=== PATIENT | female | born 1980 ===

== ENCOUNTER 2020-04-24 10:49 | Outpatient (REF) | payer OTHER, SELFPAY | END 2020-04-24 10:50 | disposition home or self-care (01) | LOC: HO.LAB 10:49 | PROVIDERS: Visit Provider Internal Medicine | DX: Z20.828 Contact with and (suspected) exposure to other viral communicable diseases (principal) | CPT/HCPCS: 87635 ==

== ENCOUNTER 2020-06-21 11:29 | Outpatient (REF) | payer OTHER, SELFPAY | END 2020-06-21 11:30 | disposition home or self-care (01) | LOC: HO.LAB 11:29 | PROVIDERS: Visit Provider Internal Medicine | DX: Z20.828 Contact with and (suspected) exposure to other viral communicable diseases (principal) | CPT/HCPCS: C9803; U0003 ==

== ENCOUNTER 2021-01-04 20:25 | Emergency (ER) | payer MEDICAID, SELFPAY ==
[2021-01-04 20:51] VITALS: BP 148/88; PULSE 81; RESP 14; TEMP 36.9; O2SAT 99; BMI 88.0
[2021-01-04 22:00] VITALS: BP 152/88; PULSE 83; RESP 16; O2SAT 99
[2021-01-04] MEDS: Lactated Ringers 1,000 ML 999 ML IV ×2 (22:12→22:55)
[2021-01-04 22:13] LABS: MANUAL DIFF FLAG NO
[2021-01-04 22:14] LABS: Basophils Absolute Auto 0.1 X10*3/uL (0.0-0.2); Basophils Percent Auto 0.5 % (0-2); Eosinophils Absolute Auto 0.1 X10*3/uL (0.0-0.4); Eosinophils Percent Auto 1.4 % (0-4); Hematocrit 36.6 % (37-47); Hemoglobin 12.4 g/dl (12.0-16.0); Imm Gran Abs Auto 0.03 X10*3/uL (0.00-0.03); Imm Gran Pct Auto 0.3 % (0.0-0.4); Lymphocytes Absolute Auto 3.3 X10*3/uL (1.2-4.9); Mean Corpuscular HGB Conc 33.9 g/dl (31.0-35.0); Mean Corpuscular Hemoglobin 27.1 pg (27.0-33.0); Mean Corpuscular Volume 80.1 fL (80-98); Mean Platelet Volume 9.3 fL (9.4-12.3); Monocytes Absolute Auto 0.6 X10*3/uL (0.1-1.2); Monocytes Percent Auto 6.3 % (2-11); Neutrophils Absolute Auto 5.4 X10*3/uL (2.0-8.3); Neutrophils Percent Auto 56.5 % (45-73); Platelet Count 278 X10*3/uL (160-400); Red Blood Count 4.57 X10*6/uL (4.20-5.50); Red Cell Distribution Width 12.9 % (11.0-16.0); White Blood Count 9.5 X10*3/uL (4.8-10.8)
[2021-01-04 22:17] LABS: Venous Blood Gas Refer to POC result
[2021-01-04 22:18] LABS: VBG Base Excess -2.1 mmol/L; VBG HCO3 21 mmol/L (22-26); VBG pCO2 32 mmHg; VBG pH 7.42 (7.32-7.43); VBG pO2 86 mmHg
[2021-01-04 22:27] LABS: Acetone, serum QL Negative (Negative)
[2021-01-04 22:42] LABS: Anion Gap 17 (12-20); Blood Urea Nitrogen 9 mg/dL (9-16); Calcium 9.1 mg/dL (8.4-10.2); Carbon Dioxide 19 mmol/L (22-29); Chloride 99 mmol/L (96-108); Creatinine Clr Calc Pharmacy 176.4; Estimated Glomerular Filt Rate > 60; Sodium 131 mmol/L (135-145)
[2021-01-04 22:43] LABS: Glucose Random 431 mg/dL (60-115)
--- NOTE | 2021-01-04 22:49 | ED_ITS ---
HPI - Recheck/Abnormal Lab/Rx General Chief Complaint: Recheck/Abnormal Lab/Rx Stated Complaint: High blood sugar Time Seen by Provider: 01/04/21 21:29 Source: patient Mode of arrival: ambulatory Limitations: no limitations History of Present Illness HPI narrative: patient is a 40-year-old female with a past medical history of DM2 on metformin who is here because she had a blood sugar at home of 435. she states she was just diagnosed 1 week ago at a clinic in [facility]. She states she had very minimal training on how to manage her diabetes and has yet to have a nutritional consult or carb counting information. She states she was told to check her blood sugar when she wakes up and before she eats dinner. She states that all of her blood sugars have generally been in the 203 100 range with kenny's blood sugar being 435. she was nervous with this numbers so she came to the emergency department. She does endorse increased thirst and increased urination and a headache. She denies any chest pain shortness of breath or fevers. Related Data Allergies Allergy/AdvReac Type Severity Reaction Status Date / Time No Known Allergies Allergy Unverified 01/04/21 21:42 Review of Systems 2 Review of Systems: Yes all other systems are reviewed and are negative [facility] Past Medical History Medical History Diabetes mellitus, type 2 Hypertension Surgical History No history of previous surgery Social History Social History Advance Directives: No Advance Directives Information Provided: Yes Physical Exam Vital Signs: Vital Signs: Last Vital Signs Temp 98.4 F 01/04/21 20:51 Pulse 83 01/04/21 22:00 Resp 16 01/04/21 22:00 BP 152/88 H 01/04/21 22:00 Pulse Ox 99 01/04/21 22:00 Body Mass Index 88.0 Const: General: cooperative, healthy appearing, comfortable and no acute distress Nutritional Appearance: average body habitus Orientation/consciousness: patient oriented x3 Eyes: General: appearance normal, both eyes and all related structures Resp: Effort & Inspection: normal respiratory effort and able to speak in complete sentences Cardio: Rate: regular rate Rhythm: regular rhythm Skin: General skin exam: no rashes or lesions noted Neuro: General: patient oriented x3 Course Course Course Narrative: patient is a 40-year-old female with a past medical history of DM2 on metformin who is here because she had a blood sugar at home of 435. Will get labs, give IV fluids and recheck point of care after 2 L of LR. Reevaluation(s) Reevaluation #1: labs remarkable for glucose 431, sodium 131, VBG is WNL an acetone is negative. Discussed with patient we will bring her blood sugar down by giving her fluids. Also advised she should double her metformin and make an appointment with her doctor for a follow-up for more Education about her diabetes, nutritional consult and possible medication adjustment. Time: 22:51 Reevaluation #2: Point of care is 314, will give 4 units of insulin IV and recheck in 1 hour, likely discharge home. Time: 00:38 MDM - Recheck/Abnormal Lab/Rx Lab Data Result diagrams: 01/04/21 22:08 01/04/21 22:08 Labs: Lab Results 01/04/21 01/04/21 01/04/21 Range/Units 22:08 22:08 22:10 WBC 9.5 (4.8-10.8) X10*3/uL RBC 4.57 (4.20-5.50) X10*6/uL Hgb 12.4 (12.0-16.0) g/dl Hct 36.6 L (37-47) % MCV 80.1 (80-98) fL MCH 27.1 (27.0-33.0) pg MCHC 33.9 (31.0-35.0) g/dl RDW 12.9 (11.0-16.0) % Plt Count 278 (160-400) X10*3/uL MPV 9.3 L (9.4-12.3) fL Immature Gran % (Auto) 0.3 (0.0-0.4) % Neut % (Auto) 56.5 (45-73) % Lymph % (Auto) 35.0 (20-40) % [place] % (Auto) 6.3 (2-11) % Eos % (Auto) 1.4 (0-4) % Baso % (Auto) 0.5 (0-2) % Lymph # (Auto) 3.3 (1.2-4.9) X10*3/uL [place] # (Auto) 0.6 (0.1-1.2) X10*3/uL Eos # (Auto) 0.1 (0.0-0.4) X10*3/uL Baso # (Auto) 0.1 (0.0-0.2) X10*3/uL Abs Immat Gran (auto) 0.03 (0.00-0.03) X10*3/uL Absolute Neuts (auto) 5.4 (2.0-8.3) X10*3/uL Absolute Nucleated RBC 0.000 (0.0-0.012) X10*3/uL Nucleated RBC % (auto) 0.0 (0.0-0.2) /100WBC VBG pH 7.42 (7.32-7.43) VBG pCO2 32 mmHg VBG pO2 86 mmHg VBG HCO3 21 L (22-26) mmol/L VBG O2 Saturation 96.0 % VBG Base Excess -2.1 mmol/L Sodium 131 L (135-145) mmol/L Potassium 4.0 (3.3-5.1) mmol/L Chloride 99 (96-108) mmol/L Carbon Dioxide 19 L (22-29) mmol/L Anion Gap 17 (12-20) BUN 9 (9-16) mg/dL Creatinine 0.88 (0.5-1.4) mg/dL Estim Creat Clear Calc 176.4 Estimated GFR > 60 POC Glucose (60-115) mg/dL Random Glucose 431 H* (60-115) mg/dL Calcium 9.1 (8.4-10.2) mg/dL Acetone, Qual Negative (Negative) 01/04/21 01/05/21 Range/Units 22:53 00:34 WBC (4.8-10.8) X10*3/uL RBC (4.20-5.50) X10*6/uL Hgb (12.0-16.0) g/dl Hct (37-47) % MCV (80-98) fL MCH (27.0-33.0) pg MCHC (31.0-35.0) g/dl RDW (11.0-16.0) % Plt Count (160-400) X10*3/uL MPV (9.4-12.3) fL Immature Gran % (Auto) (0.0-0.4) % Neut % (Auto) (45-73) % Lymph % (Auto) (20-40) % [place] % (Auto) (2-11) % Eos % (Auto) (0-4) % Baso % (Auto) (0-2) % Lymph # (Auto) (1.2-4.9) X10*3/uL [place] # (Auto) (0.1-1.2) X10*3/uL Eos # (Auto) (0.0-0.4) X10*3/uL Baso # (Auto) (0.0-0.2) X10*3/uL Abs Immat Gran (auto) (0.00-0.03) X10*3/uL Absolute Neuts (auto) (2.0-8.3) X10*3/uL Absolute Nucleated RBC (0.0-0.012) X10*3/uL Nucleated RBC % (auto) (0.0-0.2) /100WBC VBG pH (7.32-7.43) VBG pCO2 mmHg VBG pO2 mmHg VBG HCO3 (22-26) mmol/L VBG O2 Saturation % VBG Base Excess mmol/L Sodium (135-145) mmol/L Potassium (3.3-5.1) mmol/L Chloride (96-108) mmol/L Carbon Dioxide (22-29) mmol/L Anion Gap (12-20) BUN (9-16) mg/dL Creatinine (0.5-1.4) mg/dL Estim Creat Clear Calc Estimated GFR POC Glucose 360 H* 314 H (60-115) mg/dL Random Glucose (60-115) mg/dL Calcium (8.4-10.2) mg/dL Acetone, Qual (Negative) Discharge Plan Discharge Clinical Impression: Blood glucose elevated Patient Disposition: Home, Self-Care Instructions: Diabetes and Nutrition (ED) Additional Instructions: As we discussed, please increase your metformin to 1000 mg in the morning and 1000 mg in the evening, please check your blood sugar when you wake up in the morning as well as before lunch and before dinner. please keep a log of these numbers and be sure to follow-up with your primary care doctor in the next week to see if the changes we made today are working well for you or if you still need more diabetes medications. The healthiest range for your glucose to be in is from 80-180mg/dL. If your blood glucose level falls below 60, please be sure to drink at least 4-6 oz of orange juice or a similar kind of juice that has carbohydrates and no fat and then recheck her blood sugar 15 to 20 minutes later and keep doing this until your glucose is over 80. Referrals: Malissa Sweet, [Primary Care Provider] - 2 days (Follow-up from ED visit, elevated glucose, we adjusted her metformin to 1000 BID, was told to document blood glucose levels and follow-up with PCP within 1 week. patient also needs nutritional counseling as related to her new diabetes diagnosis. )
[2021-01-04 22:58] LABS: Glucose, Whole Blood 360 mg/dL (60-115)
[2021-01-05 00:38] LABS: Glucose, Whole Blood 314 mg/dL (60-115)
[2021-01-05] MEDS: Insulin Regular, Human 100 UNIT/ML 3 ML VIAL IVPUSH (01:08)
[2021-01-05 07:52] LABS: Glucose, Whole Blood 454 mg/dL (60-115)
== END 2021-01-05 01:28 | disposition home or self-care (01) ==
PROVIDERS: Physician Assistant; Emergency Provider Internal Medicine; PCP Family Medicine
DX: E11.65 Type 2 diabetes mellitus with hyperglycemia (principal); I10 Essential (primary) hypertension; Z79.84 Long term (current) use of oral hypoglycemic drugs
CPT/HCPCS: 36415; 80048; 82009; 82947; 85025; 87086; 96361; 96374; 99284

== ENCOUNTER 2021-01-06 17:52 | Emergency (ER) | payer MEDICAID, SELFPAY ==
--- NOTE | ~2021-01-06 | CT_ITS ---
EXAMINATION: CT ABDOMEN AND PELVIS WITHOUT CONTRAST CLINICAL INFORMATION: Right-sided abdominal pain. COMPARISON: CT abdomen 11/04/2015. TECHNIQUE: Multidetector volumetric imaging was performed from the superior aspect of the liver through the pubic symphysis. Sagittal and coronal reformatted images were obtained on the technologist's workstation. This CT examination was performed using dose optimization techniques as appropriate, variously including the following: *Automated exposure control. *Adjustment of mA and/or kV according to patient size (this includes techniques or standardized protocols for targeted exams where dose is matched to indication/reason for exam; i.e. extremities or head). *Use of iterative reconstruction technique. DLP: 878 mGy-cm FINDINGS: LUNG BASES: The visualized lung bases are unremarkable. LIVER, GALLBLADDER, AND BILIARY TREE: Diffuse low-attenuation suggesting hepatic steatosis. No focal hepatic lesion or biliary ductal dilatation is present. The gallbladder is unremarkable with no evidence of radiopaque gallstones, gallbladder wall thickening, or obvious pericholecystic inflammatory changes. PANCREAS: Unremarkable. SPLEEN: Unremarkable. ADRENAL GLANDS: Unremarkable. KIDNEYS AND URETERS: Exophytic hypodense lesion arising from the lower pole of the left kidney, lesion measuring approximately 4.1 x 3.3 x 4.7 cm. Intervals measurements approximately 17. Previous study demonstrated an intrarenal component, not clearly identified in today's study. This lesion is incompletely evaluated in this noncontrast study. Prior ultrasound demonstrated this to be a Bosniak type II lesion. Probable cyst in the upper pole of the left kidney, is not well visualized on the noncontrast study. No renal calculi. No hydronephrosis. BLADDER: Unremarkable. GASTROINTESTINAL TRACT: Scattered colonic diverticuli. No evidence of diverticulitis. No colonic wall thickening or pericolonic inflammatory changes. Luminal contents in the stomach. No dilated small bowel loops. Appendix is normal. No ascites. No free air. ABDOMINAL WALL: No significant hernia is appreciated. LYMPH NODES: No enlarged lymph nodes are seen. VASCULAR: Normal caliber aorta. PELVIC VISCERA: Hypodensity in the right adnexal region, probably ovarian cysts, evaluation limited by adjacent bowel loops. Uterus appears unremarkable. OSSEOUS STRUCTURES: No acute or suspicious osseous abnormality seen. CT/CT abdomen pelvis wo con IMPRESSION: 1. There is a 4.7 cm exophytic cystic lesion in the left kidney. There is a component within the substance of the kidney, not clearly visualized or evaluated in noncontrast CT. Prior ultrasound in 03/29/2018 demonstrated a Bosniak 2 lesion. Recommend further evaluation with ultrasound, which can be obtained on non-emergent basis. 2. Colonic diverticulosis without evidence of diverticulitis. 3. No acute inflammatory infectious process is otherwise identified.
--- NOTE | ~2021-01-06 | US_ITS ---
EXAMINATION: US ABDOMEN LIMITED CLINICAL INFORMATION: Right upper quadrant pain. Question acute cholecystitis. COMPARISON: Ultrasound 03/29/2018. TECHNIQUE: Real-time imaging of the right upper quadrant abdominal viscera. FINDINGS: PANCREAS: Obscured by bowel gas. LIVER: Diffuse increased parenchymal echogenicity. The liver contour is normal. No focal hepatic lesion. There is no intrahepatic biliary duct dilatation seen. GALLBLADDER: Gallbladder is contracted, patient is not fasting. Limited evaluation. No obvious shadowing gallstone is seen. No gallbladder wall thickening or pericholecystic fluid is evident. COMMON BILE DUCT: Normal in caliber measuring 0.3 cm in diameter. RIGHT KIDNEY: Normal. No hydronephrosis. No renal calculi or focal parenchymal lesions. The kidney measures 13.1 cm in maximum dimension. FREE FLUID: None. US/US abdomen limited IMPRESSION: 1. Gallbladder is contracted, patient is not fasting. No obvious gallstones, gallbladder wall thickening or pericholecystic fluid is seen. Clinically correlate. Consider short-term follow up fasting ultrasound for further evaluation, if clinically warranted. 2. There is generalized increase in hepatic echotexture, consistent with fatty infiltration or hepatocellular disease. Please correlate clinically. No focal hepatic mass or intrahepatic biliary duct dilatation is seen. 3. Pancreas obscured by bowel gas.
[2021-01-06 18:06] VITALS: BP 120/92; PULSE 105; RESP 18; TEMP 36.7; O2SAT 98; BMI 41.1
--- NOTE | 2021-01-06 19:04 | ED_ITS ---
HPI - Abdominal Pain General Chief Complaint: Abdominal Pain Stated Complaint: side pain Time Seen by Provider: 01/06/21 19:04 Source: patient Mode of arrival: ambulatory Limitations: no limitations History of Present Illness HPI narrative: patient no significant abdominal complaints in the past since yesterday 20:00 noticed pain in the right upper quadrant with nausea. Pain got worse today after having meals no fever no chills no vomiting had couple of loose bowels no abdominal distension no history of kidney stone no urinary complaints Related Data Allergies Allergy/AdvReac Type Severity Reaction Status Date / Time No Known Allergies Allergy Verified 01/06/21 18:05 Review of Systems Review of Systems Constitutional : No Weight loss, No Fever, No Chills ENT/Mouth : No sore throat, No Rhinorrhea Eyes: No Eye Pain, No Swelling Cardiovascular : No Chest Pain, no palpitations Respiratory : No Cough, No Sputum, no shortness of breath Gastrointestinal : +Nausea, No Vomiting, No Diarrhea, + abdominal Pain, no black stools Genitourinary : No Dysuria, No Urinary Frequency Musculoskeletal : No joint pain, No Myalgias, No Joint Swelling Skin : No Skin Lesions, No rash Neuro : No Weakness, No Numbness, No Dizziness, No Headache Psych : No Anxiety/Panic, No Depression Heme/Lymph: No Bruising, No Lymphadenopathy Endocrine : No Polyuria, No Polydipsia All other systems reviewed and are negative Physical Exam Vital Signs: Vital Signs: Last Vital Signs Temp 98.1 F 01/06/21 18:06 Pulse 105 H 01/06/21 18:06 Resp 18 01/06/21 19:37 BP 120/92 H 01/06/21 18:06 Pulse Ox 98 01/06/21 18:06 Body Mass Index 41.1 Appearance: Alert. Oriented X3. No acute distress. Eyes: PERRLA, No Nystagmus ENT: Pharynx normal. Oral Mucosa moist Neck: Normal inspection. Neck supple. CVS: Normal heart rate and rhythm. Pulses normal. Respiratory: No respiratory distress. Equal air entry bilateral, no wheezin g/rales/rhonchi Abdomen: Soft , tender right upper quadrant with guarding no rebound tenderness, Bowel sounds are present, no mass palpable, no CVA tenderness Skin: Skin warm and dry. Normal skin color. Normal skin turgor. Extremities: No lower extremity edema. No calf tenderness Neuro: Oriented X 3. No motor deficit. Course Course Course Narrative: CT scan ultrasound of the gallbladder is negative for gallstones patient is still complaining of pain CT scan was done which showed normal appendix cyst on the left kidney will discharge patient home on tramadol MDM - Abdominal Pain MDM Narrative Medical decision making narrative: pain with right upper quadrant pain ultrasound negative for gallstones or cholecystitis labs are stable will check the UA Lab Data Attestation: I reviewed the patient's lab results. Result diagrams: 01/06/21 19:36 01/06/21 19:36 Labs: Lab Results 01/06/21 01/06/21 01/06/21 Range/Units 19:36 19:36 20:52 WBC 10.1 (4.8-10.8) X10*3/uL RBC 4.65 (4.20-5.50) X10*6/uL Hgb 12.7 (12.0-16.0) g/dl Hct 37.4 (37-47) % MCV 80.4 (80-98) fL MCH 27.3 (27.0-33.0) pg MCHC 34.0 (31.0-35.0) g/dl RDW 12.9 (11.0-16.0) % Plt Count 312 (160-400) X10*3/uL MPV 9.4 (9.4-12.3) fL Immature Gran % (Auto) 0.2 (0.0-0.4) % Neut % (Auto) 67.2 (45-73) % Lymph % (Auto) 25.6 (20-40) % [place] % (Auto) 6.0 (2-11) % Eos % (Auto) 0.7 (0-4) % Baso % (Auto) 0.3 (0-2) % Lymph # (Auto) 2.6 (1.2-4.9) X10*3/uL [place] # (Auto) 0.6 (0.1-1.2) X10*3/uL Eos # (Auto) 0.1 (0.0-0.4) X10*3/uL Baso # (Auto) 0.0 (0.0-0.2) X10*3/uL Abs Immat Gran (auto) 0.02 (0.00-0.03) X10*3/uL Absolute Neuts (auto) 6.8 (2.0-8.3) X10*3/uL Absolute Nucleated RBC 0.000 (0.0-0.012) X10*3/uL Nucleated RBC % (auto) 0.0 (0.0-0.2) /100WBC Sodium 133 L (135-145) mmol/L Potassium 4.0 (3.3-5.1) mmol/L Chloride 100 (96-108) mmol/L Carbon Dioxide 21 L (22-29) mmol/L Anion Gap 16 (12-20) BUN 10 (9-16) mg/dL Creatinine 0.79 (0.5-1.4) mg/dL Estim Creat Clear Calc 115.2 Estimated GFR > 60 POC Glucose (60-115) mg/dL Random Glucose 279 H D (60-115) mg/dL Calcium 8.9 (8.4-10.2) mg/dL Total Bilirubin 0.2 (0.0-1.0) mg/dL Direct Bilirubin < 0.2 (0.0-0.5) mg/dL AST 20 (5-31) U/L ALT 28 (0-31) U/L Alkaline Phosphatase 84 (39-117) U/L Total Protein 6.7 (6.5-8.0) g/dL Albumin 3.7 (3.5-5.0) g/dL Lipase 59 (8-78) U/L Urine Color YELLOW Urine Appearance CLEAR Urine pH 6.0 (5.0-8.0) Ur Specific [place] 1.010 (1.005-1.025) Urine Protein NEG (NEG-TRACE) MG/DL Urine Glucose (UA) >=1000 H (NEG) MG/DL Urine Ketones 15 (NEG) MG/DL Urine Blood NEG (NEG) Urine Nitrite NEG (NEG) Ur Leukocyte Esterase NEG (NEG) Urine RBC 0 (0) /HPF Urine WBC 0-2 (0-4) /HPF Ur Squamous Epith Cells TRACE /LPF Urine Bacteria TRACE /LPF 01/06/21 Range/Units 21:50 WBC (4.8-10.8) X10*3/uL RBC (4.20-5.50) X10*6/uL Hgb (12.0-16.0) g/dl Hct (37-47) % MCV (80-98) fL MCH (27.0-33.0) pg MCHC (31.0-35.0) g/dl RDW (11.0-16.0) % Plt Count (160-400) X10*3/uL MPV (9.4-12.3) fL Immature Gran % (Auto) (0.0-0.4) % Neut % (Auto) (45-73) % Lymph % (Auto) (20-40) % [place] % (Auto) (2-11) % Eos % (Auto) (0-4) % Baso % (Auto) (0-2) % Lymph # (Auto) (1.2-4.9) X10*3/uL [place] # (Auto) (0.1-1.2) X10*3/uL Eos # (Auto) (0.0-0.4) X10*3/uL Baso # (Auto) (0.0-0.2) X10*3/uL Abs Immat Gran (auto) (0.00-0.03) X10*3/uL Absolute Neuts (auto) (2.0-8.3) X10*3/uL Absolute Nucleated RBC (0.0-0.012) X10*3/uL Nucleated RBC % (auto) (0.0-0.2) /100WBC Sodium (135-145) mmol/L Potassium (3.3-5.1) mmol/L Chloride (96-108) mmol/L Carbon Dioxide (22-29) mmol/L Anion Gap (12-20) BUN (9-16) mg/dL Creatinine (0.5-1.4) mg/dL Estim Creat Clear Calc Estimated GFR POC Glucose 227 H (60-115) mg/dL Random Glucose (60-115) mg/dL Calcium (8.4-10.2) mg/dL Total Bilirubin (0.0-1.0) mg/dL Direct Bilirubin (0.0-0.5) mg/dL AST (5-31) U/L ALT (0-31) U/L Alkaline Phosphatase (39-117) U/L Total Protein (6.5-8.0) g/dL Albumin (3.5-5.0) g/dL Lipase (8-78) U/L Urine Color Urine Appearance Urine pH (5.0-8.0) Ur Specific [place] (1.005-1.025) Urine Protein (NEG-TRACE) MG/DL Urine Glucose (UA) (NEG) MG/DL Urine Ketones (NEG) MG/DL Urine Blood (NEG) Urine Nitrite (NEG) Ur Leukocyte Esterase (NEG) Urine RBC (0) /HPF Urine WBC (0-4) /HPF Ur Squamous Epith Cells /LPF Urine Bacteria /LPF PMFSH Past Medical History Medical History Diabetes mellitus, type 2 Hypertension Surgical History No history of previous surgery Social History Social History Advance Directives: No Advance Directives Information Provided: No Patient : No
[2021-01-06 19:37] VITALS: RESP 18
[2021-01-06] MEDS: Morphine Sulfate 4 MG/ML CARTRIDGE IVPUSH (19:37)
[2021-01-06] MEDS: ondansetron HCL 4 MG/2 ML VIAL IVPUSH (19:37)
[2021-01-06] MEDS: 0.9 % Sodium Chloride 1,000 ML 999 ML IVCONT (19:38)
[2021-01-06 19:47] LABS: MANUAL DIFF FLAG NO
[2021-01-06 20:00] LABS: Basophils Percent Auto 0.3 % (0-2); Eosinophils Absolute Auto 0.1 X10*3/uL (0.0-0.4); Eosinophils Percent Auto 0.7 % (0-4); Hematocrit 37.4 % (37-47); Hemoglobin 12.7 g/dl (12.0-16.0); Imm Gran Abs Auto 0.02 X10*3/uL (0.00-0.03); Imm Gran Pct Auto 0.2 % (0.0-0.4); Lymphocytes Absolute Auto 2.6 X10*3/uL (1.2-4.9); Lymphocytes Percent Auto 25.6 % (20-40); Mean Corpuscular Hemoglobin 27.3 pg (27.0-33.0); Mean Corpuscular Volume 80.4 fL (80-98); Mean Platelet Volume 9.4 fL (9.4-12.3); Monocytes Absolute Auto 0.6 X10*3/uL (0.1-1.2); Neutrophils Absolute Auto 6.8 X10*3/uL (2.0-8.3); Neutrophils Percent Auto 67.2 % (45-73); Platelet Count 312 X10*3/uL (160-400); Red Blood Count 4.65 X10*6/uL (4.20-5.50); Red Cell Distribution Width 12.9 % (11.0-16.0); White Blood Count 10.1 X10*3/uL (4.8-10.8)
[2021-01-06 20:11] LABS: Alanine Aminotransferase 28 U/L (0-31); Albumin Level 3.7 g/dL (3.5-5.0); Alkaline Phosphatase 84 U/L (39-117); Anion Gap 16 (12-20); Aspartate Amino Transferase 20 U/L (5-31); Bilirubin Direct < 0.2 mg/dL (0.0-0.5); Bilirubin Total 0.2 mg/dL (0.0-1.0); Blood Urea Nitrogen 10 mg/dL (9-16); Calcium 8.9 mg/dL (8.4-10.2); Carbon Dioxide 21 mmol/L (22-29); Chloride 100 mmol/L (96-108); Creatinine Clr Calc Pharmacy 115.2; Estimated Glomerular Filt Rate > 60; Glucose Random 279 mg/dL (60-115); Lipase 59 U/L (8-78); Sodium 133 mmol/L (135-145); Total Protein 6.7 g/dL (6.5-8.0)
[2021-01-06 21:06] LABS: Glucose Urine UA >=1000 MG/DL (NEG); Leukocyte Esterase Urine NEG (NEG); Nitrite Urine NEG (NEG); Urine Blood NEG (NEG); Urine Ketones 15 MG/DL (NEG); Urine Protein NEG (NEG-TRACE)
[2021-01-06 21:24] LABS: Appearance Urine CLEAR; Color Urine YELLOW
[2021-01-06 21:54] LABS: Glucose, Whole Blood 227 mg/dL (60-115)
[2021-01-06 21:56] LABS: Bacteria Urine TRACE /LPF; RBC Urine 0 /HPF (0); Squamous Epithelial Cell Urine TRACE /LPF; WBC Urine 0-2 /HPF (0-4)
[2021-01-06 22:00] VITALS: BP 139/75; PULSE 72; RESP 18; O2SAT 100
== END 2021-01-06 23:45 | disposition home or self-care (01) ==
PROVIDERS: Emergency Provider Internal Medicine; PCP Family Medicine
DX: R10.11 Right upper quadrant pain (principal); R11.0 Nausea; Q61.01 Congenital single renal cyst; E11.9 Type 2 diabetes mellitus without complications; I10 Essential (primary) hypertension
CPT/HCPCS: 36415; 74176; 76705; 80048; 80076; 81001; 81003; 82947; 83690; 85025; 96361; 96374; 96375; 99284; J2270; J2405

== ENCOUNTER 2021-01-26 09:31 | Outpatient (REF) | payer MEDICAID, SELFPAY ==
--- NOTE | ~2021-01-26 | XR_ITS ---
EXAMINATION: LEFT HAND/WRIST CLINICAL INFORMATION: Effusion. Pain COMPARISON: None TECHNIQUE: 3 views. FINDINGS: The MCP and interphalangeal joint spaces are maintained normal. There is no bony erosive changes, spurring a loss of joint space. No acute fracture or bony abnormality seen. The soft tissues are normal. XR/XR hand wrist LT IMPRESSION: Unremarkable left hand exam.
== END 2021-01-26 09:32 | disposition home or self-care (01) ==
LOC: HO.XRAY 09:31
PROVIDERS: Visit Provider Family Medicine
DX: M25.432 Effusion, left wrist (principal)
CPT/HCPCS: 73110; 73130

== ENCOUNTER → 2021-03-09 10:09 | Outpatient (BNVA) | payer MEDICAID, SELFPAY | PROVIDERS: PCP Family Medicine | DX: N39.3 Stress incontinence (female) (male) (principal) | CPT/HCPCS: 99202 ==

== ENCOUNTER 2021-04-06 14:56 | Outpatient (REF) | payer MEDICAID, SELFPAY ==
--- NOTE | ~2021-04-06 | CT_ITS ---
EXAMINATION: CT HEAD WITHOUT CONTRAST CLINICAL INFORMATION: Headache COMPARISON: None TECHNIQUE: Contiguous axial imaging was performed from the skull base to vertex without intravenous administration of contrast. This CT examination was performed using dose optimization techniques as appropriate, variously including the following: *Automated exposure control *Adjustment of mA and/or kV according to patient size (this includes techniques or standardized protocols for targeted exams where dose is matched to indication/reason for exam; i.e. extremities or head) *Use of iterative reconstruction technique DLP: 812.8 mGy-cm FINDINGS: There is no evidence of acute intracranial hemorrhage or territorial infarction. No abnormal mass effect or midline shift is seen. Cortes to white matter differentiation is well preserved. No extra-axial fluid collections are identified. The ventricles are normal in size. There is no abnormal attenuation within the brain parenchyma. The osseous structures and soft tissues are normal. The mastoid air cells and visualized portions of the paranasal sinuses are well aerated. CT/CT head/brain wo con IMPRESSION: No acute intracranial pathology.
== END 2021-04-06 14:57 | disposition home or self-care (01) ==
LOC: HO.CT 14:56
PROVIDERS: PCP Family Medicine; Visit Provider Emergency Medicine
DX: R51.9 Headache, unspecified (principal)
CPT/HCPCS: 70450

== ENCOUNTER → 2021-06-08 10:49 | Outpatient (BNVA) | payer MEDICAID, SELFPAY | PROVIDERS: PCP Family Medicine ==

== ENCOUNTER 2022-08-18 09:03 | Emergency (ER) | payer MEDICAID, SELFPAY ==
[2022-08-18 09:16] VITALS: BP 160/94; PULSE 74; RESP 16; TEMP 36.6; O2SAT 98; BMI 46.3
[2022-08-18 09:26] LABS: Glucose, Whole Blood 279 mg/dL (60-115)
[2022-08-18 09:45] VITALS: BP 148/82; PULSE 77; RESP 20; O2SAT 97
--- NOTE | 2022-08-18 09:57 | ECG_ITS ---
Test Reason : HBP Blood Pressure : / mmHG Vent. Rate : 076 BPM Atrial Rate : 076 BPM P-R Int : 142 ms QRS Dur : 108 ms QT Int : 394 ms P-R-T Axes : 017 -03 -08 degrees QTc Int : 443 ms Normal sinus rhythm Minimal voltage criteria for LVH, may be normal variant ( [place] product ) Nonspecific T wave abnormality Abnormal ECG No previous ECGs available Referred By: Makeda Cabrera Electronically Signed By:Nikita Hernandez
[2022-08-18 10:10] LABS: Basophils Percent Auto 0.5 % (0-2); Eosinophils Absolute Auto 0.1 X10*3/uL (0.0-0.4); Eosinophils Percent Auto 0.9 % (0-4); Hemoglobin 12.7 g/dl (12.0-16.0); Imm Gran Abs Auto 0.02 X10*3/uL (0.00-0.03); Imm Gran Pct Auto 0.2 % (0.0-0.4); Lymphocytes Percent Auto 34.8 % (20-40); MANUAL DIFF FLAG NO; Mean Corpuscular HGB Conc 34.3 g/dl (31.0-35.0); Mean Corpuscular Hemoglobin 28.2 pg (27.0-33.0); Mean Corpuscular Volume 82.2 fL (80.0-98.0); Mean Platelet Volume 8.8 fL (9.4-12.3); Monocytes Absolute Auto 0.5 X10*3/uL (0.1-1.2); Monocytes Percent Auto 5.3 % (2-11); Neutrophils Absolute Auto 5.1 x10*3/uL (2.0-8.3); Neutrophils Percent Auto 58.3 % (45-73); Platelet Count 324 X10*3/uL (160-400); Red Cell Distribution Width 12.8 % (11.0-16.0); White Blood Count 8.7 X10*3/uL (4.8-10.8)
--- NOTE | 2022-08-18 10:16 | ED_ITS ---
HPI - General Adult General Chief complaint: General Medical Stated complaint: HBP/HBS Time Seen by Provider: 08/18/22 09:57 Source: patient Mode of arrival: ambulatory Limitations: no limitations History of Present Illness HPI narrative: 42-year-old female with history of hyq-jnccksz-shuwwhhgq diabetes, hypertens ion, migraines presents with complaints of headache which began at 04:00 and feeling like her blood pressure is elevated. Patient reports she normally takes her morning medications when she gets home from work but did not take these as she came here instead. She does take hydrochlorothiazide and lisinopril for her blood pressure. She does have a history of migraine and states this headache does feel similar to previous migraines. She has no associated photophobia, nausea, vomiting, vision changes, dizziness. She also reports that her blood sugar was elevated today but did not take her diabetes medications. Related Data Home Medications Medication Instructions Recorded Confirmed cholecalciferol (vitamin D3) 25 25 mcg PO DAILY 06/08/21 mcg (1,000 unit) capsule hydrochlorothiazide 25 mg tablet 25 mg PO DAILY 06/08/21 lisinopril 20 mg tablet 20 mg PO DAILY 06/08/21 metformin 500 mg tablet 500 mg PO BID 06/08/21 Previous Rx's Medication Instructions Recorded tramadol 50 mg tablet 50 mg PO Q6H PRN pain #20 tabs 01/06/21 oxybutynin chloride 10 mg 10 mg PO DAILY OAB 90 days #90 tabs 03/12/22 tablet,extended release 24 hr ceaxwiavyk-ilzcrlsanbqjb-rykkoapm 1 cap PO Q8H PRN pain #10 caps 08/18/22 50 mg-300 mg-40 mg capsule (Fioricet) Allergies Allergy/AdvReac Type Severity Reaction Status Date / Time No Known Allergies Allergy Verified 06/08/21 11:53 Review of Systems Review of Systems: Yes all other systems are reviewed and are negative Constitutional: Constitutional: Reports no additional constitutional complaints, Denies body ache(s), Denies chills, Denies fever(s), Reports headac he(s) and Denies weakness Eyes: Eyes: Reports no additional eye complaints and Denies change in vision ENT: Reports system reviewed and no additional complaints, except as documented, Denies dizziness, Reports headache(s), Denies nasal congestion, Denies nasal discharge and Denies neck pain Cardiovascular: Cardiovascular: Reports no additional cardiovascular c omplaints, Denies chest pain, Denies leg edema and Denies dyspnea Respiratory: Respiratory: Reports no additional respiratory complaints, Denies cough and Denies dyspnea Gastrointestinal: Gastrointestinal: Reports no additional gastrointestinal complaints, Denies abdominal pain, Denies diarrhea, Denies nausea and Denies vomiting Genitourinary: Genitourinary: Reports no additional female genitourinary complaints and Denies urinary incontinence Musculoskeletal: Musculoskeletal: Reports no additional musculoskeletal complaints, Denies back pain, Denies arthralgias, Denies joint swelling, Denies neck pain, Denies numbness and Denies tingling Integumentary/Breasts: Skin/Breast: Reports system reviewed and no additional complaints, except as docu and Denies rash Neurologic: Reports system reviewed and no additional complaints, except as documented, Denies dizziness, Reports headache(s), Denies numbness, Denies tingling and Denies weakness PMFSH Past Medical History Attestation statement: The following information was validated with the patient. Source: old records reviewed and nursing notes reviewed Medical History Diabetes mellitus, type 2 Hypertension Stress bladder incontinence, female Surgical History No history of previous surgery Social History Social History Alcohol intake: never Patient Tobacco Use Status: Never used Tobacco Smoked in Last 30 Days: No Use of substances other than those prescribed or required for medical reasons: No Advance Directives: No Advance Directives Information Provided: Yes Physical Exam ED Vital Signs: Vital Signs - 24 hr 08/18/22 09:16 08/18/22 09:45 08/18/22 11:39 Temperature 97.8 F Pulse Rate 74 77 82 Respiratory Rate 16 20 20 Blood Pressure 160/94 H 148/82 H 132/81 Pulse Oximetry 98 97 96 Oxygen Delivery Method Room Air Room Air Room Air BMI result Body Mass Index 46.3 Const General: cooperative, healthy appearing, comfortable and no acute distress Orientation/consciousness: patient oriented x3 Limitations: no limitations HENMT Head: Yes normal to inspection Ears: hearing grossly normal bilaterally and TM's normal bilaterally General nose exam: Normal external nose present Face and sinus: Yes normal facial exam Mouth: Normal oral and palatal mucosa present Throat: Yes posterior oropharynx normal, Yes tonsils normal and Yes uvula midline Eyes General: appearance normal, both eyes and all related structures Pupils: Equal, round and reactive pupils present Neck Neck: Yes normal visual inspection, Yes full ROM, Yes no lymphadenopathy and Yes no meningeal signs Chest Chest palpation & inspection: normal inspection of the chest Resp Effort & Inspection: normal respiratory effort Auscultation: clear to auscultation bilaterally Cardio Rate: regular rate Rhythm: regular rhythm Peripheral pulses: Peripheral pulses 2+ throughout GI Inspection: Yes normal to inspection Palpation (GI): Soft to palpation and nontender General: Yes no CVA tenderness Back/Spine/Pelvis Back: no CVA tenderness Thoracic/Lumbar Spine: thoracic and lumbar spine normal to inspection Skin General skin exam: no rashes or lesions noted Neuro General: patient oriented x3, moves all extremities and no meningeal signs Cranial nerves: Yes CN's II-XII intact bilaterally, Yes Equal, round and reactive pupils present, Yes Bilaterally intact EOM present, Yes Nystagmus not present, Yes Normal facial strength present and Yes Midline tongue present Cognition (Neuro): normal cognition Gait exam (Neuro): Normal gait present Motor exam (neuro): 5/5 motor strength present throughout Sensory Exam: Normal double simultaneous stimulation for sensation Extrem General: Yes normal to inspection, Yes no pedal edema and Yes no calf tenderness Course Course Course Narrative: Labs show mild hyperglycemia with no evidence of DKA. Blood pressure recheck 132/91. Patient reports feeling overall much better. Headache is almost resolved. Reviewed of workup with the patient. Recommend that she take her medications as prescribed and not miss any doses. She tells me that she has of medication at home that she does not know the name of for migraines but she does not take it because it makes her feel dizzy. She does feel better with the tablet if your sed here and so I will give her this as a prescription. Recommend follow-up outpatient with her primary care. Reviewed worrisome signs and symptoms of when to return to the emergency room. Comfortable plan for discharge home Medications Administered Discontinued Medications Generic Name Dose Route Start Last Admin Trade Name Freq PRN Reason Stop Dose Admin Acetaminophen/Butalbital/Caffeine 1 tab 08/18/22 10:15 08/18/22 10:33 Butalb/Acetamin/Caff 50/325/40 Tablet PO 08/18/22 10:16 1 tab ONCE ONE Administration Hydrochlorothiazide 25 mg 08/18/22 10:15 08/18/22 10:33 Hydrochlorothiazide 25 Mg Tablet PO 08/18/22 10:16 25 mg ONCE ONE Administration Protocol Lisinopril 20 mg 08/18/22 10:15 08/18/22 10:33 Lisinopril 20 Mg Tablet PO 08/18/22 10:16 20 mg ONCE ONE Administration Protocol Metformin HCl 500 mg 08/18/22 10:15 08/18/22 10:33 Metformin Hcl 500 Mg Tablet PO 08/18/22 10:16 500 mg ONCE ONE Administration Medical Decision Making Medical Decision Making MDM Narrative: 42-year-old female here with concern for headache which began at 04:00 with concerned that her blood sugar and blood pressure are elevated. Patient has history of pgj-izejkgi-eouvwvjwz diabetes, migraines, hypertension it is not t aneesh any of her morning medications. She does state this headache feels similar to her previous migraines. Patient denies any injury or trauma. Will obtain labs, EKG. Patient will be given her morning medications as well as oral Fioricet her migraine blood pressure 140 systolic on arrival. Blood sugar 279 Differential Diagnosis Differential Diagnoses: The differential diagnosis associated with the presentation includes migraines, hypertension, hyperglycemia with noncompliance Lab Data [facility] Lab Attestation statement: I reviewed the patient's lab results. 08/18/22 10:05 08/18/22 10:05 Labs: Lab Results 08/18/22 08/18/22 08/18/22 Range/Units 09:22 10:05 10:05 WBC 8.7 (4.8-10.8) X10*3/uL RBC 4.50 (4.20-5.50) X10*6/uL Hgb 12.7 (12.0-16.0) g/dl Hct 37.0 (37.0-47.0) % MCV 82.2 (80.0-98.0) fL MCH 28.2 (27.0-33.0) pg MCHC 34.3 (31.0-35.0) g/dl RDW 12.8 (11.0-16.0) % Plt Count 324 (160-400) X10*3/uL MPV 8.8 L (9.4-12.3) fL Immature Gran % (Auto) 0.2 (0.0-0.4) % Neut % (Auto) 58.3 (45-73) % Lymph % (Auto) 34.8 (20-40) % [place] % (Auto) 5.3 (2-11) % Eos % (Auto) 0.9 (0-4) % Baso % (Auto) 0.5 (0-2) % Lymph # (Auto) 3.0 (1.2-4.9) X10*3/uL [place] # (Auto) 0.5 (0.1-1.2) X10*3/uL Eos # (Auto) 0.1 (0.0-0.4) X10*3/uL Baso # (Auto) 0.0 (0.0-0.2) X10*3/uL Abs Immat Gran (auto) 0.02 (0.00-0.03) X10*3/uL Absolute Neuts (auto) 5.1 (2.0-8.3) x10*3/uL Absolute Nucleated RBC 0.000 (0.0-0.012) X10*3/uL Nucleated RBC % (auto) 0.0 (0.0-0.2) /100WBC Sodium 135 (135-145) mmol/L Potassium 3.9 (3.3-5.1) mmol/L Chloride 101 (96-108) mmol/L Carbon Dioxide 22 (22-29) mmol/L Anion Gap 16 (12-20) BUN 7 L (9-16) mg/dL Creatinine 0.75 (0.5-1.4) mg/dL Estim Creat Clear Calc 127.4 Estimated GFR > 60 POC Glucose 279 H (60-115) mg/dL Random Glucose 311 H (60-115) mg/dL Calcium 8.9 (8.4-10.2) mg/dL Troponin I High Sens (<3.5-17.0) ng/L Urine Color Urine Appearance Urine pH (5.0-9.0) Ur Specific [place] (1.005-1.025) Urine Protein (Neg-Trace) mg/dL Urine Glucose (UA) (Negative) mg/dL Urine Ketones (Negative) mg/dL Urine Blood (Negative) Urine Nitrite (Negative) Ur Leukocyte Esterase (Negative) Urine RBC (0-2) /HPF Urine WBC (0-5) /HPF Ur Squamous Epith Cells (0-2) /HPF Urine Bacteria (None Seen) Hyaline Casts (0-2) /LPF 08/18/22 08/18/22 Range/Units 10:05 11:38 WBC (4.8-10.8) X10*3/uL RBC (4.20-5.50) X10*6/uL Hgb (12.0-16.0) g/dl Hct (37.0-47.0) % MCV (80.0-98.0) fL MCH (27.0-33.0) pg MCHC (31.0-35.0) g/dl RDW (11.0-16.0) % Plt Count (160-400) X10*3/uL MPV (9.4-12.3) fL Immature Gran % (Auto) (0.0-0.4) % Neut % (Auto) (45-73) % Lymph % (Auto) (20-40) % [place] % (Auto) (2-11) % Eos % (Auto) (0-4) % Baso % (Auto) (0-2) % Lymph # (Auto) (1.2-4.9) X10*3/uL [place] # (Auto) (0.1-1.2) X10*3/uL Eos # (Auto) (0.0-0.4) X10*3/uL Baso # (Auto) (0.0-0.2) X10*3/uL Abs Immat Gran (auto) (0.00-0.03) X10*3/uL Absolute Neuts (auto) (2.0-8.3) x10*3/uL Absolute Nucleated RBC (0.0-0.012) X10*3/uL Nucleated RBC % (auto) (0.0-0.2) /100WBC Sodium (135-145) mmol/L Potassium (3.3-5.1) mmol/L Chloride (96-108) mmol/L Carbon Dioxide (22-29) mmol/L Anion Gap (12-20) BUN (9-16) mg/dL Creatinine (0.5-1.4) mg/dL Estim Creat Clear Calc Estimated GFR POC Glucose (60-115) mg/dL Random Glucose (60-115) mg/dL Calcium (8.4-10.2) mg/dL Troponin I High Sens < 3.5 (<3.5-17.0) ng/L Urine Color Yellow Urine Appearance Clear Urine pH 5.5 (5.0-9.0) Ur Specific [place] 1.010 (1.005-1.025) Urine Protein Negative (Neg-Trace) mg/dL Urine Glucose (UA) >=1000 H (Negative) mg/dL Urine Ketones Negative (Negative) mg/dL Urine Blood Small (1+) H (Negative) Urine Nitrite Negative (Negative) Ur Leukocyte Esterase Negative (Negative) Urine RBC 0-2 (0-2) /HPF Urine WBC 0-5 (0-5) /HPF Ur Squamous Epith Cells 0-2 (0-2) /HPF Urine Bacteria None Seen (None Seen) Hyaline Casts 0-2 (0-2) /LPF Independent Interpretation I performed an independent interpretation of an: EKG Interpretation: I independently reviewed the EKG which shows normal sinus rhythm with a rate of 76, normal ND, normal QRS, nonspecific T-wave changes in le Discharge Plan Discharge Clinical Impression: Hyperglycemia, Hypertension, Migraines Patient Disposition: Home, Self-Care Additional Instructions: blood work shows mildly elevated blood sugar. Make sure that you take all her medications as prescribed. Your blood pressure is improved on discharge. I am prescribing a different medication for your migraines Prescriptions: New ogajiwlehv-hpqurrngzbxwv-fbja [Fioricet] 50-300-40 mg capsule 1 cap PO Q8H PRN (Reason: pain) Qty: 10 0RF No Action oxybutynin chloride 10 mg tablet extended release 24hr 10 mg PO DAILY 90 Days Qty: 90 0RF tramadol 50 mg tablet 50 mg PO Q6H PRN (Reason: pain) Qty: 20 0RF metformin 500 mg tablet 500 mg PO BID cholecalciferol (vitamin D3) 25 mcg (1,000 unit) capsule 25 mcg PO DAILY lisinopril 20 mg tablet 20 mg PO DAILY hydrochlorothiazide 25 mg tablet 25 mg PO DAILY Referrals: Malissa Sweet DO [Primary Care Provider] - 10 days Stand Alone Forms: Work/School Release
[2022-08-18 10:28] LABS: Anion Gap 16 (12-20); Blood Urea Nitrogen 7 mg/dL (9-16); Calcium 8.9 mg/dL (8.4-10.2); Carbon Dioxide 22 mmol/L (22-29); Chloride 101 mmol/L (96-108); Creatinine Clr Calc Pharmacy 127.4; Estimated Glomerular Filt Rate > 60; Glucose Random 311 mg/dL (60-115); Potassium 3.9 mmol/L (3.3-5.1); Sodium 135 mmol/L (135-145)
[2022-08-18] MEDS: Butalb/Acetamin/Caff 50/325/40 TABLET 1 TAB PO (10:33)
[2022-08-18] MEDS: metFORMIN HCl 500 MG TABLET PO (10:33)
[2022-08-18] MEDS: lisinopriL 20 MG TABLET PO (10:33)
[2022-08-18] MEDS: hydroCHLOROthiazide 25 MG TABLET PO (10:33)
[2022-08-18 10:36] LABS: Troponin-I High Sensitivity < 3.5 ng/L (<3.5-17.0)
[2022-08-18 11:39] VITALS: BP 132/81; PULSE 82; RESP 20; O2SAT 96
[2022-08-18 11:48] LABS: Appearance Urine Clear; Color Urine Yellow; Glucose Urine UA >=1000 mg/dL (Negative); Leukocyte Esterase Urine Negative (Negative); Nitrite Urine Negative (Negative); PH 5.5 (5.0-9.0); UMIC TRIGGER UACC YES; Urine Blood Small (1+) (Negative); Urine Ketones Negative (Negative); Urine Protein Negative (Neg-Trace)
[2022-08-18 12:01] LABS: Bacteria Urine None Seen (None Seen); Hyaline Casts Urine 0-2 /LPF (0-2); RBC Urine 0-2 /HPF (0-2); Squamous Epithelial Cell Urine 0-2 /HPF (0-2); WBC Urine 0-5 /HPF (0-5)
== END 2022-08-18 12:16 | disposition home or self-care (01) ==
PROVIDERS: Nurse Practitioner Family; Emergency Provider Emergency Medicine Emergency Medical Services; PCP Family Medicine
DX: E11.65 Type 2 diabetes mellitus with hyperglycemia (principal); G43.909 Migraine, unspecified, not intractable, without status migrainosus; I10 Essential (primary) hypertension; Z79.899 Other long term (current) drug therapy; Z79.84 Long term (current) use of oral hypoglycemic drugs; Z91.14 Patient's other noncompliance with medication regimen
CPT/HCPCS: 36415; 80048; 81001; 82947; 84484; 85025; 93005; 99283; 99285

== ENCOUNTER 2022-10-31 13:51 | Outpatient (REF) | payer MEDICAID, SELFPAY ==
--- NOTE | ~2022-10-31 | US_ITS ---
EXAMINATION: US RETROPERITONEAL LIMITED (RENAL ONLY) CLINICAL INFORMATION: Cystic lesion seen on CT. COMPARISON: CT abdomen pelvis 01/06/2021 and ultrasound abdomen limited same date. TECHNIQUE: Real-time imaging of the kidneys. FINDINGS: RIGHT KIDNEY: 13.6 x 6.3 x 6.5 cm (SAG x AP x TRV). The kidney is normal in size, contour, and echogenicity. Renal cortical thickness is normal. No calculi or focal parenchymal lesions. No hydronephrosis. LEFT KIDNEY: 12.6 x 6.5 x 5.1 cm (SAG x AP x TRV). The kidney is normal in size, contour, and echogenicity. Renal cortical thickness is normal. No renal calculi or hydronephrosis. There is a 1.7 cm simple cyst in the upper pole. There is a 3.3 x 3.3 x 3.3 cm endophytic cyst with multiple thin septations in the mid kidney. Previously this measured 2.6 x 2.2 x 2.5 cm. There is a 4.4 x 3.9 x 3.1 cm thinly septated exophytic cyst in the mid to lower kidney. Previously this measured 3.9 x 2.7 x 3.8 cm. US/US renal BI IMPRESSION: Increased 3.3 cm endophytic cystic lesion in the lower left kidney with multiple thin internal septations. Previously this measured 2.6 cm. Recommend urology consultation.
== END 2022-10-31 13:52 | disposition home or self-care (01) ==
LOC: HO.US 13:51
PROVIDERS: PCP Family Medicine; Visit Provider Family Medicine
DX: N28.9 Disorder of kidney and ureter, unspecified (principal)
CPT/HCPCS: 76775

== ENCOUNTER 2022-11-28 10:28 | Outpatient (REF) | payer MEDICAID, SELFPAY ==
--- NOTE | ~2022-11-28 | MM_ITS ---
EXAMINATION: MM SCREENING DIGITAL BREAST TOMOSYNTHESIS, BILATERAL CLINICAL INFORMATION: Screening. Asymptomatic. The lifetime risk of breast cancer based on the Tyrer-Cuzick Model is 7%. COMPARISON: Mammography: 01/06/2019, 08/04/2018 (baseline); right breast ultrasound 01/06/2019; bilateral breast ultrasound 08/04/2018. TECHNIQUE: Digital breast tomosynthesis is performed in both the craniocaudal and mediolateral oblique views along with computer-aided detection (CAD). Synthesized 2D images are generated from the tomosynthesis. FINDINGS: There are scattered areas of fibroglandular density (ACR BI-RADS breast composition Category b). There are no significant masses, abnormal calcifications, or other abnormalities. No architectural abnormality or developing density or significant change from prior studies. Axillary nodes stable. Skin contours are smooth. MM/MM tomosynthesis screening BI IMPRESSION: No mammographic evidence of malignancy. ASSESSMENT: BI-RADS 2: Benign RECOMMENDATION: Routine annual mammography screening. This patient's information was entered into a reminder system with a target due date for their next mammogram.
== END 2022-11-28 10:29 | disposition home or self-care (01) ==
LOC: HO.MAMMO 10:28
PROVIDERS: PCP Family Medicine; Visit Provider Family Medicine
DX: Z12.31 Encounter for screening mammogram for malignant neoplasm of breast (principal)
CPT/HCPCS: 77063; 77067

== ENCOUNTER 2023-02-20 10:29 | Outpatient (REF) | payer MEDICAID, SELFPAY ==
[2023-02-20 11:11] LABS: MANUAL DIFF FLAG NO
[2023-02-20 11:33] LABS: Basophils Absolute Auto 0.1 X10*3/uL (0.0-0.2); Basophils Percent Auto 0.5 % (0-2); Eosinophils Absolute Auto 0.1 X10*3/uL (0.0-0.4); Hematocrit 36.7 % (37.0-47.0); Hemoglobin 12.2 g/dl (12.0-16.0); Imm Gran Abs Auto 0.03 X10*3/uL (0.00-0.03); Imm Gran Pct Auto 0.3 % (0.0-0.4); Lymphocytes Absolute Auto 2.7 X10*3/uL (1.2-4.9); Lymphocytes Percent Auto 28.6 % (20-40); Mean Corpuscular HGB Conc 33.2 g/dl (31.0-35.0); Mean Corpuscular Volume 84.4 fL (80.0-98.0); Mean Platelet Volume 8.9 fL (9.4-12.3); Monocytes Absolute Auto 0.6 X10*3/uL (0.1-1.2); Monocytes Percent Auto 6.2 % (2-11); Neutrophils Absolute Auto 5.9 x10*3/uL (2.0-8.3); Neutrophils Percent Auto 63.4 % (45-73); Platelet Count 389 X10*3/uL (160-400); Red Blood Count 4.35 X10*6/uL (4.20-5.50); Red Cell Distribution Width 12.9 % (11.0-16.0); White Blood Count 9.4 X10*3/uL (4.8-10.8)
[2023-02-20 12:33] LABS: HIV AB/AG Nonreactive (Nonreactive); HIV Num 1 0.06 S/CO (0.00-0.99)
[2023-02-20 12:36] LABS: Alanine Aminotransferase 42 U/L (0-31); Albumin Level 3.7 g/dL (3.5-5.0); Alkaline Phosphatase 72 U/L (39-117); Anion Gap 11 (12-20); Aspartate Amino Transferase 38 U/L (5-31); Bilirubin Direct 0.1 mg/dL (0.0-0.5); Bilirubin Total 0.3 mg/dL (0.0-1.0); Blood Urea Nitrogen 7 mg/dL (9-16); Calcium 8.9 mg/dL (8.4-10.2); Carbon Dioxide 25 mmol/L (22-29); Chloride 107 mmol/L (96-108); Cholesterol 162 mg/dL; Estimated Glomerular Filt Rate > 60; Glucose Random 136 mg/dL (60-115); HDL Cholesterol 45 mg/dL; LDL Cholesterol Calculated 96 mg/dl; Potassium 3.9 mmol/L (3.3-5.1); Sodium 139 mmol/L (135-145); Total Protein 7.2 g/dL (6.5-8.0); Triglycerides 105 mg/dL; ~HepC Num1 0.07 S/CO (0.00-0.79); ~Hepatitis C Antibody Nonreactive (Nonreactive)
[2023-02-20 12:43] LABS: Vitamin B12 714 pg/mL (200-900)
[2023-02-20 12:44] LABS: Free T4 (Free Thyroxine) 0.97 ng/dL (0.71-1.85); Thyroid Stimulating Hormone 0.99 uIU/mL (0.32-4.0); Vitamin D 25-OH Total 33.4 ng/mL (>30)
[2023-02-20 14:31] LABS: Creatinine Urine 205.24 mg/dL; Microalbum/Creatinine Ratio Ur 5.8 ug/mg cr
[2023-02-20 15:23] LABS: CT PCR NOT DETECTED (Not Detect.); NG PCR NOT DETECTED (Not Detect.)
[2023-02-21 04:11] LABS: Syphilis Screen Nonreactive (Nonreactive)
[2023-02-21 13:18] LABS: Alpha Fetoprotein 1.6 ng/mL
== END 2023-02-20 10:30 | disposition home or self-care (01) ==
LOC: HO.HHCL 10:29
PROVIDERS: Visit Provider Family Medicine
DX: Z11.4 Encounter for screening for human immunodeficiency virus [HIV] (principal); E11.9 Type 2 diabetes mellitus without complications; K76.0 Fatty (change of) liver, not elsewhere classified; Z11.3 Encounter for screening for infections with a predominantly sexual mode of transmission
CPT/HCPCS: 0353U; 80048; 80061; 80076; 82043; 82105; 82306; 82607; 84439; 84443; 85025; 86780; 86803; 87389

== ENCOUNTER 2023-02-21 08:15 | Outpatient (AMB) | payer MEDICAID, SELFPAY ==
--- NOTE | 2023-02-20 16:20 | A.OFFVIS_ITS ---
Intake Intake Visit Reasons: Endophytic renal cyst Intake Note: NEW Patient presents today to established treatment for Endophytic Renal Cyst: Meds- Oxybutynin Allergies to Antibiotic- No Known Allergies Blood Thinner- None [employer] Super[employer] Required: No Allergies No Known Allergies Allergy (Verified 02/21/23 08:35) Medication List - Last Reconciled 02/21/23 by Beverly Krishnan MD kttipcpkvk-knewmtqaxgxuw-ygwy 50-300-40 mg (Fioricet) 1 cap PO Q8H PRN cholecalciferol (vitamin D3) 25 mcg PO DAILY dulaglutide (Trulicity) mg subcut QWEEK flash glucose sensor (FreeStyle Danilo 2 Sensor kit) As directed hydrochlorothiazide 25 mg PO DAILY insulin glargine (Lantus Solostar U-100 Insulin) 28 units subcut QAM lancets (TRUEplus Lancets) As directed lisinopril 20 mg PO DAILY metformin 500 mg PO BID pen needle, diabetic (Pentips) As directed HPI HPI Comments History of Present Illness Details Antonietta is a 43-year-old female who presents today to the office for a follow up of endophytic renal cyst. 02/21/2023? She was last seen by nurse practitioner Mary Ann on 06/08/2021 for stress bladder incontinence. She was started on oxybutynin 10 mg and was advised to follow up in 3 months at that time. She has a past medical history of ilf-wrydwfj-eyyywfdbf diabetes, hypertension, migraines. She is taking metformin for diabetes. I have reviewed the renal US results from 10/31/2022 revealed increased 3.3 cm endophytic cystic lesion in the lower left kidney with multiple thin internal septations. Previously this measured 2.6 cm. She reports that her stress bladder incontinence has improved. Patient states that she is not taking oxybuytnin. She is doing well as far as bladder control. In discussion with the patient explained that the renal cyst has internal septations components that are solid, further evaluation is necessary to evaluate the cyst. Evaluation today?UA?leukocytes: 1+ blood: negative. Plan: Complex renal cyst. MRI of renal mass protocol. Stress urinary incontinence: Bladder symptoms are stable. Follow up in 12 weeks to review MRI results. [facility] Medical History Diabetes mellitus, type 2 Hypertension Stress bladder incontinence, female Surgical History History of surgery on left wrist Family History Father No problems noted. Mother No problems noted. Social History Alcohol intake: never Patient Tobacco Use Status: Never used Tobacco Review of Systems Const All systems reviewed & are unremarkable except as noted in HPI and below Reports no additional complaints Eyes Reports no additional complaints ENT Reports no additional complaints Card Denies dyspnea Resp Denies cough and Denies dyspnea GI Reports no additional complaints Reports no additional complaints Musc Reports no additional complaints Skin/Breast Denies rash and Denies unusual bruising Neuro Reports no additional complaints Psych Reports no additional complaints Endo Reports no additional complaints Tirso/Lymph Reports no additional complaints Aller/Immun Reports no additional complaints Physical Exam Const General: cooperative, healthy appearing and no acute distress Nutritional Appearance: overweight Orientation/consciousness: patient oriented x3 HEENT Head: Yes normal to inspection, Yes normocephalic and Yes atraumatic Eyes Conjunctivae: conjunctivae normal Neck Neck: Yes normal visual inspection and Yes trachea midline Chest Chest palpation & inspection: normal inspection of the chest Resp Effort & Inspection: normal respiratory effort Cardio Rate: regular rate GI Inspection: Yes normal to inspection Skin General skin exam: no rashes or lesions noted Neuro General: patient oriented x3 Extrem General: No edema Psych Appearance: grossly normal Results AMB Urinalysis, Automated UA Leukoctes 70 Samantha/uL Last Edit by ALEXANDRO Maravilla on 02/21/23 08:49 1+ Christin Mendoza 02/21/23 08:49 UA Nitrite Negative Last Edit by ALEXANDRO Maravilla on 02/21/23 08:49 UA Urobilinogen 0.2 mg/dL Last Edit by Christin Mendoza A on 02/21/23 08:4 9 UA Protein 0 mg/dL Last Edit by Christin Mendoza A on 02/21/23 08:49 UA pH 6.0 Last Edit by Christin Mendoza A on 02/21/23 08:49 UA Blood 0 Zachary/uL Last Edit by Christin Mendoza A on 02/21/23 08:49 UA Specific [place] 1.030 Last Edit by Christin Mendoza, A on 02/21/23 08: 49 UA Ketone Negative Last Edit by Christin Mendoza A on 02/21/23 08:49 UA Bilirubin 0 mg/dL Last Edit by Christin Mendoza A on 02/21/23 08:49 UA Glucose 0 mg/dL Last Edit by Christin Mendoza A on 02/21/23 08:49 Results Reviewed Results Reviewed: Laboratory Last Values Urine pH (Auto) 6.0 02/21/23 08:43 Specific [place] (Auto) 1.030 02/21/23 08:43 Urine Protein (Auto) 0 mg/dL 02/21/23 08:43 Glucose (UA)(Auto) 0 mg/dL 02/21/23 08:43 Urine Ketones (Auto) Negative 02/21/23 08:43 Urine Blood (Auto) 0 Zachary/uL 02/21/23 08:43 Urine Nitrite (Auto) Negative 02/21/23 08:43 Urine Bilirubin (Auto) 0 mg/dL 02/21/23 08:43 Urine Urobilinogen (Auto) 0.2 mg/dL 02/21/23 08:43 Leukocyte Esterase (Auto) 70 Samantha/uL 02/21/23 08:43 Date of Service: 10/31/22 EXAMINATION: US RETROPERITONEAL LIMITED (RENAL ONLY) CLINICAL INFORMATION: Cystic lesion seen on CT. COMPARISON: CT abdomen pelvis 01/06/2021 and ultrasound abdomen limited same date. FINDINGS: RIGHT KIDNEY: 13.6 x 6.3 x 6.5 cm (SAG x AP x TRV). The kidney is normal in size, contour, and echogenicity. Renal cortical thickness is normal. No calculi or focal parenchymal lesions. No hydronephrosis. LEFT KIDNEY: 12.6 x 6.5 x 5.1 cm (SAG x AP x TRV). The kidney is normal in size, contour, and echogenicity. Renal cortical thickness is normal. No renal calculi or hydronephrosis. There is a 1.7 cm simple cyst in the upper pole. There is a 3.3 x 3.3 x 3.3 cm endophytic cyst with multiple thin septations in the mid kidney. Previously this measured 2.6 x 2.2 x 2.5 cm. There is a 4.4 x 3.9 x 3.1 cm thinly septated exophytic cyst in the mid to lower kidney. Previously this measured 3.9 x 2.7 x 3.8 cm. IMPRESSION: Increased 3.3 cm endophytic cystic lesion in the lower left kidney with multiple thin internal septations. Previously this measured 2.6 cm. Recommend urology consultation. Assessment & Plan Assessment & Plan (1) Stress bladder incontinence, female: Code(s): N39.3 - Stress incontinence (female) (male) Plan: Complex renal cyst. MRI of renal mass protocol. Stress urinary incontinence: Bladder symptoms are stable. Follow up in 12 weeks to review MRI results. (2) Renal cyst: Code(s): N28.1 - Cyst of kidney, acquired (3) Complex renal cyst: Code(s): N28.1 - Cyst of kidney, acquired Plan Continue to monitor the kidney. MRI of the kidney with and without IV contrast was ordered. Follow up in 10-12 weeks. Orders: Orders AMB Urinalysis Automated Today Z13.9 - Encounter for screening, unspecified Patient Instructions: The patient had an opportunity to ask questions regarding treatment plan. All questions were answered. Imaging, Laboratory studies and physical exam results were discussed and reviewed in detail. No major barriers to understanding were identified. The patient expressed understanding and agreement with the above treatment plan.? ? ? The patient is aware they should contact our office by phone for worsening of their current condition or the appearance of new symptoms. Compliance is encouraged with any medications and followup testing that is ordered.? ? ? It is a privilege to be allowed the opportunity to participate in the urologic care of your patient. If you have any questions or concerns regarding treatment for the above conditions please do not hesitate to contact me. The office telephone contact is [phone].? ? ? This note is constructed in part using voice recognition software. While every effort has been made to ensure accuracy hog scraper errors may have been included.? ? ? Yours sincerely,? ? ? Beverly Krishnan MD? ? Coding Level of Care Code Est Pt Level 4 (02698) Diagnoses Stress bladder incontinence, female N39.3 Renal cyst N28.1 Complex renal cyst N28.1
== END 2023-02-21 09:15 | disposition home or self-care (01) ==
PROVIDERS: PCP Family Medicine; Referring Provider Family Medicine; Visit Provider Urology
DX: N39.3 Stress incontinence (female) (male) (principal); N28.1 Cyst of kidney, acquired; Z13.9 Encounter for screening, unspecified
CPT/HCPCS: 99214

== ENCOUNTER → 2023-02-21 08:15 | Outpatient (BNVA) | payer MEDICAID, SELFPAY | PROVIDERS: PCP Family Medicine; Referring Provider Family Medicine; Visit Provider Urology | DX: N39.3 Stress incontinence (female) (male) (principal); N28.1 Cyst of kidney, acquired | CPT/HCPCS: 81003; 99212 ==

== ENCOUNTER 2023-03-21 16:57 | Outpatient (REF) | payer MEDICAID, SELFPAY ==
[2023-03-22 05:24] LABS: CT PCR NOT DETECTED (Not Detect.); NG PCR NOT DETECTED (Not Detect.)
[2023-03-26 07:28] LABS: HPV mRNA E6/E7 rflx Not Detected (Not Detected)
== END 2023-03-21 16:58 | disposition home or self-care (01) ==
LOC: HO.HHCLNP 16:57
PROVIDERS: Visit Provider Family Medicine
DX: Z01.419 Encounter for gynecological examination (general) (routine) without abnormal findings (principal); Z11.51 Encounter for screening for human papillomavirus (HPV)
CPT/HCPCS: 0353U; 87624; 88142

== ENCOUNTER 2023-04-10 15:47 | Outpatient (REF) | payer MEDICAID, SELFPAY | END 2023-04-10 15:48 | disposition home or self-care (01) | LOC: HO.MRI 15:47 | PROVIDERS: PCP Family Medicine; Visit Provider Urology | DX: N28.1 Cyst of kidney, acquired (principal) | CPT/HCPCS: 74183; A9585 ==

== ENCOUNTER 2023-05-23 10:18 | Outpatient (AMB) | payer MEDICAID, SELFPAY ==
--- NOTE | 2023-05-23 10:27 | A.OFFVIS_ITS ---
Intake Intake Visit Reasons: 12 weeks imaging Intake Note: Patient presents today for MRI Results, completed on 04/10/2023: Meds- Oxybutynin Allergies to Antibiotic- No Known Allergies Blood Thinner- None Account Development Executive Required: No Accompanied by: Self / Same As Patient Allergies No Known Allergies Allergy (Verified 05/23/23 10:49) Medication List - Last Reconciled 05/23/23 by Beverly Krishnan MD [id number] 50-300-40 mg (Fioricet) 1 cap PO Q8H PRN cholecalciferol (vitamin D3) 25 mcg PO DAILY dulaglutide (Trulicity) mg subcut QWEEK flash glucose sensor (FreeStyle Danilo 2 Sensor kit) As directed hydrochlorothiazide 25 mg PO DAILY insulin glargine (Lantus Solostar U-100 Insulin) 28 units subcut QAM lancets (TRUEplus Lancets) As directed lisinopril 20 mg PO DAILY metformin 500 mg PO BID pen needle, diabetic (Pentips) As directed HPI HPI Comments History of Present Illness Details Antonietta is a 43-year-old female who presents today to the office for a follow-up. 05/23/2023? She is followed today for MRI results. Past medical history of insulin-dependent diabetes, hypertension, migraines. She was last seen by me on 02/20/2023 for complex renal cyst. 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 Stress urinary incontinence: Bladder symptoms are stable. 05/23/2023: Plan: Follow-up in one year. Renal US [facility] Medical History Diabetes mellitus, type 2 Hypertension Stress bladder incontinence, female Surgical History History of surgery on left wrist Family History Father No problems noted. Mother No problems noted. Social History Alcohol intake: never Patient Tobacco Use Status: Never used Tobacco Review of Systems Const All systems reviewed & are unremarkable except as noted in HPI and below Reports no additional complaints Eyes Reports no additional complaints ENT Reports no additional complaints Card Denies dyspnea Resp Denies cough and Denies dyspnea GI Reports no additional complaints Reports no additional complaints Musc Reports no additional complaints Skin/Breast Denies rash and Denies unusual bruising Neuro Reports no additional complaints Psych Reports no additional complaints Endo Reports no additional complaints Tirso/Lymph Reports no additional complaints Aller/Immun Reports no additional complaints Physical Exam Const General: cooperative, healthy appearing and no acute distress Nutritional Appearance: overweight Orientation/consciousness: patient oriented x3 HEENT Head: Yes normal to inspection, Yes normocephalic and Yes atraumatic Eyes Conjunctivae: conjunctivae normal Neck Neck: Yes normal visual inspection and Yes trachea midline Chest Chest palpation & inspection: normal inspection of the chest Resp Effort & Inspection: normal respiratory effort Cardio Rate: regular rate GI Inspection: Yes normal to inspection Skin General skin exam: no rashes or lesions noted Neuro General: patient oriented x3 Extrem General: No edema Psych Appearance: grossly normal Results AMB Urinalysis, Automated UA Leukoctes 0 Samantha/uL Last Edit by ALEXANDRO Maravilla on 05/23/23 11:14 UA Nitrite Negative Last Edit by ALEXANDRO Maravilla on 05/23/23 11:14 UA Urobilinogen 0.2 mg/dL Last Edit by ALEXANDRO Maravilla on 05/23/23 11:1 4 UA Protein 0 mg/dL Last Edit by ALEXANDRO Maravilla on 05/23/23 11:14 UA pH 6.0 Last Edit by ALEXANDRO Maravilla on 05/23/23 11:14 UA Blood 0 Zachary/uL Last Edit by ALEXANDRO Maravilla on 05/23/23 11:14 UA Specific [place] 1.020 Last Edit by CARLO MaravillaA on 05/23/23 11: 14 UA Ketone Negative Last Edit by ALEXANDRO Maravilla on 05/23/23 11:14 UA Bilirubin 0 mg/dL Last Edit by CARLO MaravillaA on 05/23/23 11:14 UA Glucose 500 mg/dL Last Edit by ALEXANDRO Maravilla on 05/23/23 11:14 2+ Christin Mendoza 05/23/23 11:14 Results Reviewed Results Reviewed: Laboratory Last Values Urine pH (Auto) 6.0 05/23/23 11:05 Specific [place] (Auto) 1.020 05/23/23 11:05 Urine Protein (Auto) 0 mg/dL 05/23/23 11:05 Glucose (UA)(Auto) 500 mg/dL 05/23/23 11:05 Urine Ketones (Auto) Negative 05/23/23 11:05 Urine Blood (Auto) 0 Zachary/uL 05/23/23 11:05 Urine Nitrite (Auto) Negative 05/23/23 11:05 Urine Bilirubin (Auto) 0 mg/dL 05/23/23 11:05 Urine Urobilinogen (Auto) 0.2 mg/dL 05/23/23 11:05 Leukocyte Esterase (Auto) 0 Samantha/uL 05/23/23 11:05 te of Service: 04/10/23 EXAMINATION: MR ABDOMEN WITHOUT AND WITH CONTRAST CLINICAL INFORMATION: Renal cyst COMPARISON: Renal ultrasound 10/31/2022, CT abdomen pelvis without contrast 01/06/2021 and with contrast 11/04/2015 FINDINGS: LUNG BASES: The visualized lung bases are unremarkable. KIDNEYS AND URETERS: A 5.5 cm left lower pole renal cyst with multiple (greater than 3) thin internal septations, difficult to accurately measure on prior noncontrast exam however not significantly changed in size from 11/04/2015 where it measured 5.4 cm. Additional Bosniak 2 left upper pole renal cyst with a single thin internal septation, no routine follow up imaging recommended. GALLBLADDER: Unremarkable. LIVER AND BILIARY TREE: Loss of signal on opposed phase imaging compatible with hepatic steatosis. Liver is enlarged measuring 21.8 cm in span. No intra or extrahepatic biliary duct dilatation. PANCREAS: Unremarkable SPLEEN: Unremarkable ADRENAL GLANDS: Unremarkable GASTROINTESTINAL TRACT: Unremarkable. LYMPH NODES: No lymphadenopathy. VASCULAR: Unremarkable ABDOMINAL WALL: Unremarkable. OSSEOUS STRUCTURES: Unremarkable. 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 * Hepatomegaly and hepatic steatosis. Assessment & Plan Assessment & Plan (1) Stress bladder incontinence, female: Code(s): N39.3 - Stress incontinence (female) (male) (2) Renal cyst: Code(s): N28.1 - Cyst of kidney, acquired (3) Complex renal cyst: Code(s): N28.1 - Cyst of kidney, acquired Plan Follow-up in one year. Renal US Orders: Orders AMB Urinalysis Automated Today Z13.9 - Encounter for screening, unspecified US renal BI 11 Months N28.1 - Cyst of kidney, acquired Patient Instructions: The patient had an opportunity to ask questions regarding treatment plan. All questions were answered. Imaging, Laboratory studies and physical exam results were discussed and reviewed in detail. No major barriers to understanding were identified. The patient expressed understanding and agreement with the above treatment plan. The patient is aware they should contact our office by phone for worsening of their current condition or the appearance of new symptoms. Compliance is encouraged with any medications and followup testing that is ordered. It is a privilege to be allowed the opportunity to participate in the urologic care of your patient. If you have any questions or concerns regarding treatment for the above conditions please do not hesitate to contact me. The office telephone contact is [phone]. This note is constructed in part using voice recognition software. While every effort has been made to ensure accuracy senior web applications developer errors may have been included. Yours sincerely, Beverly Krishnan MD Coding Level of Care Code Est Pt Level 4 (23417) Diagnoses Stress bladder incontinence, female N39.3 Renal cyst N28.1 Complex renal cyst N28.1
== END 2023-05-23 11:26 | disposition home or self-care (01) ==
PROVIDERS: PCP Family Medicine; Visit Provider Urology
DX: N39.3 Stress incontinence (female) (male) (principal); N28.1 Cyst of kidney, acquired; Z13.9 Encounter for screening, unspecified
CPT/HCPCS: 99214

== ENCOUNTER → 2023-05-23 10:18 | Outpatient (BNVA) | payer MEDICAID, SELFPAY | PROVIDERS: PCP Family Medicine; Visit Provider Urology | DX: N39.3 Stress incontinence (female) (male) (principal); N28.1 Cyst of kidney, acquired | CPT/HCPCS: 81003; 99212 ==

== ENCOUNTER 2024-01-09 10:51 | Outpatient (REF) | payer MEDICAID, SELFPAY ==
[2024-01-09 13:45] LABS: Alanine Aminotransferase 20 U/L (0-31); Albumin Level 3.8 g/dL (3.5-5.0); Alkaline Phosphatase 64 U/L (39-117); Anion Gap 13 (12-20); Aspartate Amino Transferase 18 U/L (5-31); Bilirubin Direct 0.1 mg/dL (0.0-0.5); Bilirubin Total 0.3 mg/dL (0.0-1.0); Blood Urea Nitrogen 9 mg/dL (9-16); Calcium 8.8 mg/dL (8.4-10.2); Carbon Dioxide 24 mmol/L (22-29); Chloride 105 mmol/L (96-108); Estimated Glomerular Filt Rate > 60; Glucose Random 214 mg/dL (60-115); Sodium 138 mmol/L (135-145); Total Protein 7.2 g/dL (6.5-8.0)
== END 2024-01-09 10:52 | disposition home or self-care (01) ==
LOC: HO.HHCL 10:51
PROVIDERS: Visit Provider Family Medicine
DX: I10 Essential (primary) hypertension (principal); E11.9 Type 2 diabetes mellitus without complications
CPT/HCPCS: 36415; 80048; 80076

== ENCOUNTER 2024-01-12 14:30 | Outpatient (REF) | payer MEDICAID, SELFPAY ==
--- NOTE | ~2024-01-12 | XR_ITS ---
EXAMINATION: XR ANKLE, RIGHT CLINICAL INFORMATION: Right ankle pain x 2 weeks COMPARISON: None available. TECHNIQUE: AP, lateral, and mortise views of the right ankle. FINDINGS: Mild lateral soft tissue swelling. No fracture or malalignment. Bone mineralization is normal. Joint spaces are well-preserved. XR/XR ankle RT min 3V IMPRESSION: Mild lateral soft tissue swelling. No acute osseous findings.
== END 2024-01-12 14:31 | disposition home or self-care (01) ==
LOC: HO.HHCX 14:30
PROVIDERS: Visit Provider Family Medicine
DX: M25.571 Pain in right ankle and joints of right foot (principal)
CPT/HCPCS: 73610

== ENCOUNTER 2024-02-20 11:44 | Outpatient (REF) | payer MEDICAID, SELFPAY ==
[2024-02-20 13:30] LABS: MANUAL DIFF FLAG NO
[2024-02-20 13:43] LABS: Basophils Percent Auto 0.4 % (0-2); Eosinophils Absolute Auto 0.1 X10*3/uL (0.0-0.4); Eosinophils Percent Auto 0.9 % (0-4); Hemoglobin 11.6 g/dl (12.0-16.0); Imm Gran Abs Auto 0.02 X10*3/uL (0.00-0.03); Imm Gran Pct Auto 0.2 % (0.0-0.4); Lymphocytes Percent Auto 32.7 % (20-40); Mean Corpuscular HGB Conc 32.2 g/dl (31.0-35.0); Mean Corpuscular Hemoglobin 26.4 pg (27.0-33.0); Mean Corpuscular Volume 81.8 fL (80.0-98.0); Mean Platelet Volume 9.1 fL (9.4-12.3); Monocytes Absolute Auto 0.5 X10*3/uL (0.1-1.2); Monocytes Percent Auto 5.7 % (2-11); Neutrophils Absolute Auto 5.4 x10*3/uL (2.0-8.3); Neutrophils Percent Auto 60.1 % (45-73); Platelet Count 367 X10*3/uL (160-400); Red Cell Distribution Width 14.2 % (11.0-16.0); White Blood Count 9.1 X10*3/uL (4.8-10.8)
[2024-02-20 14:08] LABS: Cholesterol 162 mg/dL (<200); HDL Cholesterol 55 mg/dL (>40); LDL Cholesterol Calculated 88 mg/dL (<100); Triglycerides 95 mg/dL (<150)
[2024-02-20 14:11] LABS: Thyroid Stimulating Hormone 0.79 uIU/mL (0.32-4.0); Vitamin D 25-OH Total 33.5 ng/mL (>30)
[2024-02-20 14:26] LABS: Creatinine Urine 152.65 mg/dL; Microalbum/Creatinine Ratio Ur 5.8 ug/mg cr (<30)
[2024-02-21 04:26] LABS: HBsAGNum1 0.77 S/CO (0.00-0.99); HIV AB/AG Nonreactive (Nonreactive); HIV Num 1 0.11 S/CO (0.00-0.99); Hepatitis B Surface Antigen Negative (Negative); ~HepC Num1 0.13 S/CO (0.00-0.79); ~Hepatitis C Antibody Nonreactive (Nonreactive)
== END 2024-02-20 11:45 | disposition home or self-care (01) ==
LOC: HO.HHCL 11:44
PROVIDERS: Visit Provider Family Medicine
DX: Z00.00 Encounter for general adult medical examination without abnormal findings (principal); R00.2 Palpitations; E11.9 Type 2 diabetes mellitus without complications; I10 Essential (primary) hypertension; E78.49 Other hyperlipidemia; K76.0 Fatty (change of) liver, not elsewhere classified; F41.9 Anxiety disorder, unspecified; K58.2 Mixed irritable bowel syndrome; N28.1 Cyst of kidney, acquired; R12 Heartburn; M25.571 Pain in right ankle and joints of right foot; R23.4 Changes in skin texture
CPT/HCPCS: 36415; 80061; 82043; 82306; 82570; 84439; 84443; 85025; 86803; 87340; 87389

== ENCOUNTER 2024-10-29 11:46 | Outpatient (REF) | payer MEDICAID, SELFPAY ==
--- OUTSIDE RECORDS SUMMARY | 2024-10-29 12:40 | XMS_ITS | Encounter Summary ---
Author Organization [employer] Address [address] [facility] 7 [place] [address] Care Team Providers Care Loftsman/Woman Name Role Phone Malissa Sweet DO Primary Care Provider + [phone] Reason for Visit * Reason Comments Care Coordination C3/CM F/U Encounter Details Date Type Department Care Team (Latest Contact Info) Description 10/28/2024 Patient Outreach [facility] MEDICINE [address] [place] [address] Malissa Sweet DO [address] [place] [address] Care Coordination (C3/CM F/U) Social History Tobacco Use Types Packs/Day Years Used Date Smoking Tobacco: Former Cigarettes Smokeless Tobacco: Former Comments:10 years ago Alcohol Use Standard Drinks/Week Comments Never 0 (1 standard drink = 0.6 oz pur e alcohol) Depression Answer Date Recorded Patient Health Questionnaire-9 Score 6 01/09/2024 Patient Health Questionnaire-9 Score 6 01/09/2024 Last PHQ-9: Questionnaire Data Not on file 0 01/09/2024 Housing Stability Answer Date Recorded What is your housing situation today? I have brayan astorga 01/09/[address] you li ve. Do you have problems with any of the following? None of the above 01/09/2024 Food Insecurity Answer Date Recorded Within the past 12 months, y ou worried that your food would run out before you got money to buy more: Never True 01/09/2024 Within the past 12 months,th e food you bought just didn't last and you didn't have enough money to get more: Never True 11/2023 Transportation Answer Date Recorded In the past 12 months, has l ack of transportation kept you from medical appts, meetings, work or from getting things needed for daily living? Yes, it has kept me from medical appointments or getting medications. 08/27/2024 Utilities Answer Date Recorded In the past 12 months, has t he electric, gas, oil or water company threatened to shut off services in your home? No 01/09/2024 Depression Answer Date Recorded Patient Health Questionnaire-2 Score 0 01/09/2024 Internet Access Answer Date Recorded Internet Access Q1 Yes 03/08/2024 Internet Access Q2 Not on file 03/08/2024 Comments No Sex and Gender Information Value Date Recorded Sex Assigned at Female 05/06/2022 10:38 AM EDT Legal Sex Female 10:38 AM EDT Gender Identity Female 05/06/2022 10:38 AM EDT Sexual Orientation Don't know 05/06/2022 10 :38 AM EDT documented as of this encounter Progress Notes * Chela Martin - 10/28/2024 1:42 PM EDT CHW Chela Martin placed outbound call to patient for follow up call on SDOH needs. No answer at this time. LVM introducing herself from [facility] CM Department. Requested call back. CHW reinforced direct contact information for any additional questions or concerns and extended clinic hours on Mondays and Wednesdays, and Walk-In Urgent Care Located in [facility] of [facility]. Patient provided with after-hours line for [facility], , which offer night time triage service and option to transfer to smoke control supervisor provider if needed. CHW will attempt another follow up call within 10 days. documented in this encounter Plan of Treatment Upcoming Encounters Date Type Department Care Team (Late st Contact Info) Description 11/05/2024 10:30 AM EDT Medication Management [facility] [address] [place] [address] Stephani Sepulveda, PharmD [address] [place], [place] [phone] 01/20/2025 10:00 AM EDT Office Visit [facility] OPTOMETRY [address] [place], [place] [phone] Jennifer Roach, OD [address] [place] [address] documented as of this encounter Goals Goal Patient Goal Type Associated Problems Recent Progress Patient-Stated? Author Record your blood pressure once per day Blood Pressure No PuiaTaqueriaStephani, PharmD Blood Pressure < 140/90 Blood Pressure 134/70(2024 10:46 AM EST) No Puia Stephani, PharmD Record your blood sugar as directed Result Component No Puia Stephani, PharmD Note: Use CGM, ensuring sensor is scanned at least once every 8 hours to capture 24H data. Check BG manually, as directed. Hemoglobin A1c < 7 Result Component 6.8( 10:50 AM EST) No Puia, Stephani, PharmD documented as of this encounter Visit Diagnoses Not on filedocumented in this encounter Additional Health Concerns Assessment Noted Time PHQ-9 Depression Total Score: 6 01/09/20 24 11:29 AM EDT documented as of this encounter Care Teams Loftsman/Woman Relationship Specialty Start Date End Date Malissa Sweet DO [address] [place] [address] PCP - General Family Medicine 12/21/20 documented as of this encounter
--- OUTSIDE RECORDS SUMMARY | 2024-10-29 12:40 | XMS_ITS | Encounter Summary ---
Author Organization [email or web address] Address [address] [facility] 7 [place] [address] Care Team Providers Care Postdoctoral Scientist Name Role Phone Malissa Sweet DO Primary Care Provider + [phone] Reason for Visit * Reason Comments Med Refill Encounter Details Date Type Department Care Team (Late st Contact Info) Description 10/21/[address] [facility] MEDICINE [address] [place], [place] [phone] Malissa Sweet DO [address] [place], [place] [phone] Social History Tobacco Use Types Packs/Day Years [...] AM EDT documented as of this encounter Plan of Treatment Upcoming Encounters Date Type Department Care Team (Late st Contact Info) Description 11/05/2024 10:30 AM EDT Medication Management [facility] [address] [place] [address] Stephani Sepulveda, PharmD [address] [place] [address] 01/20/2025 10:00 AM EDT Office Visit [facility] OPTOMETRY [address] [place] [address] Jennifer Roach OD [address] [place] [address] documented as of this encounter Goals Goal Patient Goal Type Associated Problems Recent Progress Patient-Stated? Author Record your blood pressure once per day Blood Pressure No Taqueria Sepulvedayssa, PharmD Blood Pressure < 140/90 Blood Pressure 134/70(2024 10:46 AM EST) No Puia, Stephani, PharmD Record your blood sugar as directed Result Component No Puia Stephani, PharmD Note: Use CGM, ensuring sensor is scanned at least once every 8 hours to capture 24H data. Check BG manually, as directed. Hemoglobin A1c < 7 Result Component 6.8( 5 10:50 AM EST) No Stephani Sepulveda, PharmD documented as of this encounter Visit Diagnoses Not on filedocumented in this encounter Additional Health Concerns Assessment Noted Time PHQ-9 Depression Total Score: 6 01/09/20 24 11:29 AM EDT documented as of this encounter Care Teams Postdoctoral Scientist Relationship Specialty Start Date End Date Malissa Sweet DO [address] [place] [phone] PCP - General Family Medicine 12/21/20 documented as of this encounter
--- OUTSIDE RECORDS SUMMARY | 2024-10-29 12:40 | XMS_ITS | Encounter Summary ---
Author Organization [employer] Address [address] [place] [address] 7 [place] [address] Care Team Providers Care Skip Tracer Name Role Phone Malissa Sweet Primary Care Provider [phone] Stephani Sepulveda PharmD Unavailable Encounter Details Date Type Department Care Team (Late st Contact Info) Description 06/24/2022 Orders Only [facility] [address] [place] [address] Tammy Bryson LPN Social History Tobacco Use Types Packs/Day Years Used Date Smoking Tobacco: Never Assessed Comments Unknown Sex and Gender Information Value Date Recorded Sex Assigned at Female 05/06/2022 10:38 AM EDT Legal Sex Female 10:38 AM EDT Gender Identity Female 05/06/2022 10:38 AM EDT Sexual Orientation Don't know 05/06/2022 10 :38 AM EDT documented as of this encounter Plan of Treatment Upcoming Encounters Date Type Department Care Team (Late st Contact Info) Description 11/05/2024 10:30 AM EDT Medication Management [facility] MEDICINE [address] [place] [address] Puia, Stephani, PharmD [address] [place] [address] 01/20/2025 10:00 AM EDT Office Visit [facility] OPTOMETRY [address] [place] [address] Jennifer Roach OD [address] [place] [address] documented as of this encounter Procedures Procedure Name Priority Date/Time Associated Diagnosis Comments URINALYSIS, COMPLETE, WITH REFLEX TO CULTURE Routine 08/18/2022 11:38 AM EST HIGH SENSITIVITY TROPONIN I Routine 08/18/2022 10:05 AM EST CBC WITH AUTO DIFFERENTIAL Routine 08/18/2022 10:05 AM EST BASIC METABOLIC PANEL Routine 08/18/2022 10:05 AM EST GLUCOSE, WHOLE BLOOD Routine 08/18/2022 9:22 AM EST documented in this encounter Results * (ABNORMAL) Urinalysis, Complete, with Reflex to Culture (08/18/2022 11:38 AM EST) Color Urine Yellow [facility] Appearance Urine Clear [facility] PH 5.5 5.0 - 9.0 [facility] Glucose Urine UA >=1000(A) Negative mg/dL [facility] Urine Blood Small (1+)(A) Negative [facility] Specific [place] - Urine 1.010 1.005 - 1.025 [facility] Urine Protein Negative Neg-Trace mg/dL [facility] Urine Ketones Negative Negative mg/dL [facility] Nitrite Urine Negative Negative [facility] Leukocyte Esterase Urine Negative Negative [facility] RBC Urine 0-2 0 - 2 /HPF [facility] Urine WBC 0-5 0 - 5 /HPF [facility] Urine Squamous Epithelial Cell 0-2 0 - 2 /HPF [facility] Urine Bacteria None Seen None Seen [facility] Hyaline Casts, Urine 0-2 0 - 2 /LPF [facility] 08/18/2022 11:3 8 AM EST 08/18/2022 11:41 AM EST Narrative [facility] - 08/18/2022 12:02 PM EST Urine, Clean Catch [facility] External Provider LAB URI NE ORDERABLES Final Result Performing Organization Address [facility] de Phone Number [facility] [address] [place] [phone] * HIGH SENSITIVITY TROPONIN I (08/18/2022 10:05 AM EST) [facility] TROPONIN I HIGH SENSITIVITY <3.5 <3.5 - 17.0 ng/L [facility] Comment:The Porter high sens itivity Troponin-I results should beused in conjunction with other diagnostic information suchas ECG, clinical observations and information, and patientsymptoms to aid in the diagnosis of CT. 08/18/2022 10:0 5 AM EST 08/18/2022 10:08 AM EST [facility] External Provider LAB BLO OD ORDERABLES Final Result Performing Organization Address [facility] de Phone Number [facility] [address] [place] [phone] * (ABNORMAL) Basic Metabolic Panel (08/18/2022 10:05 AM EST) [facility] Sodium 135 135 - 145 mmol/L [facility] Potassium 3.9 3.3 - 5.1 mmol/L [facility] Chloride 101 96 - 108 mmol/L [facility] Carbon Dioxide 22 22 - 29 mmol/L [facility] Anion Gap 16 12 - 20 [facility] Urea Nitrogen (BUN) 7(L) 9 - 16 mg/dL [facility] Creatinine, Serum 0.75 0.5 - 1.4 mg/dL [facility] Creatinine Clr Calc Pharmacy 127.4 [facility] Comment:Provided height and weight: 162.56 cm,122.47 kg.eGFR (calculated from the MDRD study equation) and eCrCl(calculated from the Cockcroft-Gault equation) are based ondifferent parameters and may not yield comparable results.If eCrCl result is absurd, please check patient'sheight/weight. Estimated Glomerular Filt Rate >60 [facility] Comment:NOTE: For -Am erican individuals, multiply the result by 1.210.Chronic Kidney Disease: Estimated GFR < 60 mL/min/1.90o9Gpdrnv Kidney Disease: Estimated GFR < 15 mL/min/1.73m2 Glucose 311(H) 60 - 115 mg/dL [facility] Calcium 8.9 8.4 - 10.2 mg/dL [facility] 08/18/2022 10:0 5 AM EST 08/18/2022 10:08 AM EST us [facility] External Provider LAB BLO OD ORDERABLES Final Result [facility] [address] [place] [phone] * (ABNORMAL) CBC auto differential (08/18/2022 10:05 AM EST) White Blood Count 8.7 4.8 - 10.8 X10*3/uL [facility] Red Blood Count 4.50 4.20 - 5.50 X10*6/uL [facility] Hemoglobin 12.7 12.0 - 16.0 g/dl [facility] Hematocrit 37.0 37.0 - 47.0 % [facility] Mean Corpuscular Volume 82.2 80.0 - 98.0 fL [facility] Mean Corpuscular Hemoglobin 28.2 27.0 - 33.0 pg [facility] Mean Corpuscular HGB Conc 34.3 31.0 - 35.0 g/dl [facility] Red Cell Distribution Width 12.8 11.0 - 16.0 % [facility] Platelet Count 324 160 - 400 X10*3/uL [facility] Mean Platelet Volume 8.8(L) 9.4 - 12.3 fL [facility] Neutrophils Percent Auto 58.3 45 - 73 % [facility] Imm Gran Pct Auto 0.2 0.0 - 0.4 % [facility] Lymphocytes Percent Auto 34.8 20 - 40 % [facility] Monocytes Percent Auto 5.3 2 - 11 % [facility] Eosinophils Percent Auto 0.9 0 - 4 % [facility] Basophils Percent Auto 0.5 0 - 2 % [facility] NRBC Pct Auto 0.0 0.0 - 0.2 /100WBC [facility] Neutrophils Absolute Auto 5.1 2.0 - 8.3 x10*3/uL [facility] Imm Gran Abs Auto 0.02 0.00 - 0.03 X10*3/uL [facility] Lymphocytes Absolute Auto 3.0 1.2 - 4.9 X10*3/uL [facility] Monocytes Absolute Auto 0.5 0.1 - 1.2 X10*3/uL [facility] Eosinophils Absolute Auto 0.1 0.0 - 0.4 X10*3/uL [facility] Basophils Absolute Auto 0.0 0.0 - 0.2 X10*3/uL [facility] NRBC Abs Auto 0.000 0.0 - 0.012 X10*3/uL [facility] 08/18/2022 10:0 5 AM EST 08/18/2022 10:08 AM EST [facility] External Provider LAB BLO OD ORDERABLES Final Result Performing Organization Address City/[facility]/ZIP Co de Phone Number [facility] [address] [place] [phone] [phone] * (ABNORMAL) GLUCOSE, WHOLE BLOOD (08/18/2022 9:22 AM EST) Glucose, Whole Blood 279(H) 60 - 115 mg/dL [facility] Comment:METER #: [id number] 08/18/2022 9:22 AM EST 08/18/2022 9:25 AM EST [facility] External Provider LAB BLO OD ORDERABLES Final Result [facility] [address] [place] [address] [phone] documented in this encounter Visit Diagnoses Not on filedocumented in this encounter Care Teams Skip Tracer Relationship Specialty Start Date End Date Malissa Sweet DO [address] [place] [address] PCP - General Family Medicine 12/21/20 Stephani Sepulveda PharmD [address] [place] [address] Pharmacist Internal Medicine 01/24/23 09/29/24 documented as of this encounter
--- OUTSIDE RECORDS SUMMARY | 2024-10-29 12:40 | XMS_ITS | Encounter Summary ---
Author Organization [employer] Address [address] [facility] [address] [place] [address] Care Team Providers Care Accounting Reconciliation Clerk Name Role Phone Malissa Sweet DO Primary Care Provider Stephani Sepulveda PharmD Unavailable Reason for Visit * Reason Onset Date Comments OV 08/06/23 08/06/2023 Encounter Details Date Type Department Care Team (Late st Contact Info) Description 08/06/2023 Telephone [facility] [address], [place] [phone] Malissa Sweet DO [address] [place], [place] [phone] OV 08/06/23 Social History Tobacco Use Types Packs/Day Years Used Date Smoking Tobacco: Former Cigarettes Smokeless Tobacco: Former Comments:10 years ago Depression Answer Date Recorded Patient Health Questionnaire-9 Score 1 10/11/2022 Housing Stability Answer Date Recorded What is your housing situation today? I have brayan astorga 04/24/[address] you li ve. Do you have problems with any of the following? None of the above 04/24/2023 Food Insecurity Answer Date Recorded Within the past 12 months, y ou worried that your food would run out before you got money to buy more: Never True 04/24/2023 Within the past 12 months,th e food you bought just didn't last and you didn't have enough money to get more: Never True Transportation Answer Date Recorded In the past 12 months, has l ack of transportation kept you from medical appts, meetings, work or from getting things needed for daily living? No 04/24/2023 Utilities Answer Date Recorded In the past 12 months, has t he electric, gas, oil or water company threatened to shut off services in your home? No 04/24/2023 Depression Answer Date Recorded Patient Health Questionnaire-2 Score 1 10/11/2022 Comments Unknown Sex and Gender Information Value Date Recorded Sex Assigned at Female 05/06/2022 10:38 AM EDT Legal Sex Female 10:38 AM EDT Gender Identity Female 05/06/2022 10:38 AM EDT Sexual Orientation Don't know 05/06/2022 10 :38 AM EDT documented as of this encounter Miscellaneous Notes * Telephone Encounter - Donta Gore - 08/06/2023 9:16 AM EST Tc from pt called in requesting to reschedule today's appt with pcp 08/06/23. Please contact pt at [phone]. documented in this encounter Plan of Treatment Upcoming Encounters Date Type Department Care Team (Late st Contact Info) Description 11/05/2024 10:30 AM EDT Medication Management [facility] [address] [place] [phone] Stephani Sepulveda, PharmD [address] [place] [address] 01/20/2025 10:00 AM EDT Office Visit [facility] [address] [place] [address] Jennifer Roach, OD [address] [place] [address] documented as of this encounter Goals Goal Patient Goal Type Associated Problems Recent Progress Patient-Stated? Author Record your blood pressure once per day Blood Pressure No Stephani Sepulveda, PharmD Blood Pressure < 140/90 Blood Pressure 134/70(2024 10:46 AM EST) No Stephani Sepulveda, PharmD Record your blood sugar as directed Result Component No Stephani Sepulveda PharmD Note: Use CGM, ensuring sensor is scanned at least once every 8 hours to capture 24H data. Check BG manually, as directed. Hemoglobin A1c < 7 Result Component 6.8( 5 10:50 AM EST) No Stephani Sepulveda PharmD documented as of this encounter Visit Diagnoses Not on filedocumented in this encounter Additional Health Concerns Assessment Noted Time PHQ-9 Depression Total Score: 1 10/12/19 23 10:27 AM EDT documented as of this encounter Care Teams Accounting Reconciliation Clerk Relationship Specialty Start Date End Date Malissa Sweet DO [address] [place] [address] PCP - General Family Medicine 12/21/20 Stephani Sepulveda PharmD [address] [place] [address] Pharmacist Internal Medicine 01/24/23 09/29/24 documented as of this encounter
--- OUTSIDE RECORDS SUMMARY | 2024-10-29 12:40 | XMS_ITS | Clinical Summary ---
Author Organization [employer] Address [address] [facility] [address] [place] [address] Care Team Providers Care Card Hand Name Role Phone Malissa Sweet DO Primary Care Provider [phone] Allergies No known active allergies Medications SUMAtriptan (Imitrex) 50 MG tablet TAKE 1 TABLET BY MOUTH AT ONSET OF MIGRAINE. MAY REPEAT ONCE AFTER 2 HOURS IF NEEDED. DO NOT EXCEED 4 TABLETS IN 24 HOURS 07/17/19 22 Active Blood Pressure Monitor [facility] USE TO CHECK BLOOD PRESSURE EVERY DAY DIRECTED 01/25/20 23 Active acetaminophen (Tylenol 8 Hour) 650 MG ER tablet TAKE 1 TABLET BY MOUTH EVERY 8 HOURS NEEDED FOR MILD PAIN, DO NOT BREAK, CRUSH, DISSOLVE OR CHEW 50 tablet 1 09/22/19 24 Active Additional Information Patient not taking.Reported on 08/26/2024 Diclofenac Sodium 1 % gel Apply 2 g topically if needed in the morning, at noon, in the evening, and at bedtime (pain). 150 g 3 09/22/19 24 Active Additional Information Patient not taking.Reported on 08/26/2024 methocarbamol (Robaxin) 750 MG tablet Take 1 tablet (750 mg) by mouth if needed in the morning and at bedtime for muscle spasms. 60 tablet 1 09/22/19 24 Active Additional Information Patient not taking.Reported on 08/26/2024 albuterol 108 (90 Base) MCG/ACT inhaler Inhale 2 puffs every 4 (four) hours if needed for wheezing. 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 Use daily as directed for CGM 1 each 01/22/20 24 Active cholecalciferol (D3 Super Strength) 50 MCG (2000 UT) capsule TAKE 2 CAPSULES BY MOUTH ONCE DAILY IN THE MORNING 180 capsule 3 03/02/20 24 Active hydrOXYzine HCl (Atarax) 25 MG tabletIndicatio ns:Anxiety disorder, unspecified TAKE 1 TABLET BY MOUTH THREE TIMES DAILY NEEDED FOR ANXIETY 60 tablet 5 07/27/19 25 Active naproxen (Naprosyn) 500 MG tablet TAKE 1 TABLET BY MOUTH TWICE DAILY IN THE MORNING AND IN THE EVENING NEEDED FOR PAIN 40 tablet 1 07/27/19 25 Active nystatin (Mycostatin) 742830 UNIT/GM powder Apply topically 2 times daily. 120 g 09/07/19 25 2025 Active traZODone (Desyrel) 50 MG tablet Take 0.5-1 tablets (25-50 mg) by mouth if needed at bedtime for sleep. 30 tablet 09/07/19 25 2025 Active melatonin 5 MG tablet Take 1-2 tablets (5-10 mg) by mouth if needed at bedtime (sleep). 60 tablet 09/07/19 25 Active Alcohol Swabs (SM Alcohol Prep) 70 % padsIndications :Type 2 diabetes mellitus without complication, without long-term current use of insulin (CMS/HCC) Use up to three times daily, as directed 100 each 10/01/19 25 Active atorvastatin (Lipitor) 10 MG tabletIndicatio ns:Type 2 diabetes mellitus without complication, without long-term current use of insulin (CMS/HCC) Take 1 tablet (10 mg) by mouth in the evening. 90 tablet 10/01/19 25 Active Continuous Glucose Sensor (FreeStyle Danilo 3 Plus Sensor) miscIndications :Type 2 diabetes mellitus without complication, without long-term current use of insulin (CMS/HCC) 1 each Once per day. Apply 1 sensor every 15 days as directed for CGM 2 each 10/01/19 25 Active glucose blood (FreeStyle Precision Man Test) test stripIndication s:Type 2 diabetes mellitus without complication, without long-term current use of insulin (CMS/HCC) Use to test blood sugar up to 3 times daily, as directed 100 each 10/01/19 25 Active hydroCHLOROthia zide (HYDRODiuril) 25 MG tabletIndicatio ns:Essential hypertension Take 1 tablet (25 mg) by mouth in the morning. 90 tablet 10/01/19 25 Active lisinopril 30 MG tabletIndicatio ns:Type 2 diabetes mellitus without complication, without long-term current use of insulin (CMS/HCC),Essen tial hypertension Take 1 tablet (30 mg) by mouth Once per day. 90 tablet 10/01/19 25 Active metFORMIN XR (Glucophage-XR) 500 MG 24 hr tabletIndicatio ns:Type 2 diabetes mellitus without complication, without long-term current use of insulin (CMS/HCC) TAKE 1 TABLET BY MOUTH TWICE DAILY IN THE MORNING AND IN THE EVENING WITH MEALS 180 tablet 10/01/19 Active insulin pen needle (Pentips) 32G x 4 mm miscIndications :Type 2 diabetes mellitus without complication, without long-term current use of insulin (CMS/HCC) Use 1 daily with Lantus 100 each 10/01/19 Active TRUEplus Lancets 33G miscIndications :Type 2 diabetes mellitus without complication, without long-term current use of insulin (CMS/HCC) Use to test blood sugar up to three times daily 100 each 10/01/19 25 Active Fiber-Lax 625 MG tablet TAKE 1 TABLET TWICE DAILY IN THE MORNING AND IN THE EVENING 180 tablet 10/06/19 25 Active omeprazole (PriLOSEC) [address] capsule TAKE 1 CAPSULE BY MOUTH EVERY MORNING BEFORE BREAKFAST DO NOT BREAK, CRUSH, DISSOLVE OR CHEW 90 capsule 10/06/19 25 Active Semaglutide, 2 MG/DOSE, (Ozempic, 2 MG/DOSE,) 8 MG/3ML solution pen-injectorInd ications:Type 2 diabetes mellitus without complication, without long-term current use of insulin (CMS/HCC) Inject 0.75 mL (2 mg) under the skin 1 (one) time per week. 3 mL 10/09/19 25 Active insulin glargine (Lantus SoloStar) 100 UNIT/ML penIndications: Type 2 diabetes mellitus without complication, without long-term current use of insulin (CMS/HCC) Inject 10 Units under the skin at bedtime. Increase as directed to max of 24 units/day. 15 mL 10/09/19 25 Active FLUoxetine (PROzac) 20 MG capsule TAKE 1 CAPSULE BY MOUTH EVERY MORNING 30 capsule 10/27/19 25 Active polycarbophil (Fiber-Lax) 625 MG tablet Take 1 tablet (625 mg) by mouth 2 times daily. 180 tablet 09/22/192024 Discontinued omeprazole (PriLOSEC) [address] capsule Take 1 capsule (20 mg) by mouth before breakfast. Do not crush or chew. 90 capsule 09/22/192024 Discontinued Alcohol Swabs (SM Alcohol Prep) 70 % padsIndications :Type 2 diabetes mellitus without complication, without long-term current use of insulin (CMS/[facility]) Use up to three times daily, as directed 100 each 11/11/192024 Discontinued(R eorder (will not trigger notification to Pharmacy)) glucose blood (FreeStyle Precision Man Test) test stripIndication s:Type 2 diabetes mellitus without complication, without long-term current use of insulin (CMS/[facility]) Use to test blood sugar up to 3 times daily, as directed 100 each 01/22/202024 Discontinued(R eorder (will not trigger notification to Pharmacy)) TRUEplus Lancets 33G [facility] Use to test blood sugar up to three times daily 100 each 01/22/202024 Discontinued(R eorder (will not trigger notification to Pharmacy)) hydroCHLOROthia zide (HYDRODiuril) 25 MG tabletIndicatio ns:Essential hypertension Take 1 tablet (25 mg) by mouth in the morning. 90 tablet 01/22/202024 Discontinued(R eorder (will not trigger notification to Pharmacy)) lisinopril 30 MG tabletIndicatio ns:Type 2 diabetes mellitus without complication, without long-term current use of insulin (CMS/[facility]),Essen tial hypertension Take 1 tablet (30 mg) by mouth Once per day. 90 tablet 01/22/202024 Discontinued(R eorder (will not trigger notification to Pharmacy)) atorvastatin (Lipitor) 10 MG tabletIndicatio ns:Type 2 diabetes mellitus without complication, without long-term current use of insulin (CMS/[facility]) Take 1 tablet (10 mg) by mouth in the evening. 90 tablet 3 02/20/20 24 2024 Discontinued(R eorder (will not trigger notification to Pharmacy)) metFORMIN XR (Glucophage-XR) 500 MG 24 hr tabletIndicatio ns:Type 2 diabetes mellitus without complication, without long-term current use of insulin (CMS/HCC) TAKE 1 TABLET BY MOUTH TWICE DAILY IN THE MORNING AND IN THE EVENING WITH MEALS 180 tablet 3 02/20/20 24 2024 Discontinued(R eorder (will not trigger notification to Pharmacy)) Pentips 32G X 4 MM misc USE WITH LANTUS DAILY DIRECTED 100 each 11 04/13/202024 Discontinued(R eorder (will not trigger notification to Pharmacy)) Tirzepatide (Mounjaro) 15 MG/0.5ML solution auto-injector Inject 15 mg under the skin 1 (one) time per week. 2 mL 11 08/26/192024 Discontinued(R eorder (will not trigger notification to Pharmacy)) Continuous Glucose Sensor (FreeStyle Danilo 3 Plus Sensor) miscIndications :Type 2 diabetes mellitus without complication, without long-term current use of insulin (CMS/HCC) 1 each Once per day. Apply 1 sensor every 15 days as directed for CGM 2 each 08/26/192024 Discontinued(R eorder (will not trigger notification to Pharmacy)) insulin glargine (Lantus SoloStar) 100 UNIT/ML penIndications: Type 2 diabetes mellitus without complication, without long-term current use of insulin (CMS/HCC) Inject 8 Units under the skin at bedtime. 15 mL 2 08/26/19 25 2024 Discontinued(R eorder (will not trigger notification to Pharmacy)) clotrimazole (Lotrimin) 1 % cream Apply topically 2 times daily for 28 days. 60 g 2 09/07/19 25 2024 FLUoxetine (PROzac) 20 MG capsule TAKE 1 CAPSULE BY MOUTH EVERY MORNING 30 capsule 09/17/19 25 2024 Discontinued insulin glargine (Lantus SoloStar) 100 UNIT/ML penIndications: Type 2 diabetes mellitus without complication, without long-term current use of insulin ([facility]) Inject 10 Units under the skin at bedtime. 15 mL 2 10/01/19 25 2024 Discontinued(R eorder (will not trigger notification to Pharmacy)) Tirzepatide (Mounjaro) 15 MG/0.5ML solution auto-injectorIn dications:Type 2 diabetes mellitus without complication, without long-term current use of insulin ([facility]) Inject 15 mg under the skin 1 (one) time per week. 2 mL 11 10/01/19 25 2024 Discontinued(F ormulary change) Active Problems Problem Noted Date Diagnosed Date Chronic pain of both knees 09/22/2023 Assessment & Plan (09/22/2023 1:04 PM EDT): Sx improved -check knee XR prn -encouraged pain meds as needed -advised rtc if sx worsen Irritable bowel syndrome 01/22/2023 Assessment & Plan (09/22/2023 1:06 PM EDT): Sx improved -cont fiber supplementation Anxiety 01/22/2023 Assessment & Plan (09/22/2023 1:06 PM EDT): Sx improved -she denies any SI/HI -she has number to crisis -cont prozac daily -cont vistaril prn anxiety -she declines referral to therapist at this time Renal cyst 01/22/2023 Assessment & Plan (09/22/2023 1:07 PM EDT): -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 APR 2023 -CT abd with exophytic cystic lesion, L kidney JAN 2021 -renal US with 3cm endophytic cystic lesion L lower kidney OCT 2022 -f/u with urology as scheduled, due MAY 2024 Fatty liver 10/11/2022 Assessment & Plan (09/22/2023 1:05 PM EDT): -LFTs slightly elevated, AFP nml FEB 2023 -abd US with echogenic liver, no focal lesion FEB 2023 -Hep A/B #04 JAN 2023, she declines last dose today Diverticulosis 10/11/2022 Stress incontinence 10/11/2022 Hyperlipidemia 07/02/2022 Assessment & Plan (09/22/2023 1:03 PM EDT): Slight bump in LDL Feb 2023 -cont lipitor nightly Essential hypertension 07/02/2022 Assessment & Plan (09/22/2023 1:03 PM EDT): BP controlled -cont HCTZ and lisinopril daily -continue regular home BP monitoring -Cr/GFR and urine microalbumin nml FEB 2023 -optho as above Obesity 07/02/2022 Type 2 diabetes mellitus 07/02/2022 Assessment & Plan (09/22/2023 1:02 PM EDT): Recent bump in A1c, BS improving -continue lantus daily -continue glipizide with dinner -continue metformin BID -continue mounjaro weekly -cont dietary changes -continue regular BS monitoring with CGM -f/u with [facility] pharmacist as scheduled -s/p optho eval JUL [address] [facility], encouraged schedule f/u -foot exam next visit* Vertigo 07/02/2022 Vitamin D deficiency 07/02/2022 Encounters Date Type Department Care Team Description 10/28/[address] [facility] [address] [place] [phone] Malissa Sweet DO Care Coordination (C3/CM F/U) 10/21/[address] [facility] [address] [place] [phone] Malissa Sweet DO 10/13/[address] [facility] [address] [place] [phone] Malissa Sweet DO Care Coordination (C3/CM Follow up) 10/08/[address] [address] Stephani Sepulveda, PharmD Prior Authorization (Ozempjazzy) 10/08/[address] [place] [address] Stephani Sepulveda PharmD Prior Authorization (Francine [place] appeal denied ) 10/06/[address] [facility] [place] [address] Malissa Sweet DO 10/06/[address] [facility] [place] [address] Malissa Sweet DO Morbid obesity with BMI of 45.0-49.9, adult (CMS/[facility]) (Primary Dx) 10/05/[address] [facility] [place] [address] Stephani Sepulveda PharmD Prior Authorization (Francine - denied ) 10/03/[address] [facility] [place] [address] Malissa Sweet DO 09/30/[address] [facility] [place] [address] Stephani Sepulveda PharmD Prior Authorization (Francine) 09/30/[address] [facility] [place] [address] Stephani Sepulveda, PharmD Referral 09/30/2024 Travel 09/28/[address] [facility] [place] [address] Malissa Sweet DO Care Coordination (Outreach) 09/17/2024 Population Health Risk Score Community [facility] () Department [address] [place] [phone] Provider, Population Health Generic 09/16/[address] [facility] [place] [address] Malissa Sweet DO 09/10/2024 Patient Outreach [facility] [address] [place] [address] Malissa Sweet DO Care Coordination (Outreach) 09/06/2024 10:15 AM EST Office Visit [facility] [place] [address] Malissa Sweet DO Type 2 diabetes mellitus without complication, without long-term current use of insulin ([facility]/HCC) (Primary Dx); Essential hypertension; Other hyperlipidemia; Fatty liver; Anxiety; Irritable bowel syndrome with constipation and diarrhea; Renal cyst; Heartburn; Other insomnia; Sleep-disordered breathing; Hyperpigmented skin lesion; Skin nodule; Intertrigo; Healthcare maintenance; Encounter for screening mammogram for malignant neoplasm of breast 09/06/2024 Travel 08/27/[address] [facility] [address] [place] [address] Malissa Sweet DO Care Coordination (Outreach) 08/25/[address] [facility] [address] [place] [address] Malissa Sweet DO Pre-visit Planning (SDOH screening positive tobacco screening negative) 08/17/[address] [facility] [address] [place] [address] Malissa Sweet DO 08/16/[address] [facility] [address] [place] [address] Malissa Sweet DO from Last 3 Months Immunizations Name Administration Dates Next Due Hep A, Adult 02/20/2024,01/22/2023 Hep B, adult 02/20/2024,03/21/2023,01/22/2023 Influenza Injectable Quadriv alant Preservative Free IIV4 MDCK 04/29/2023 Influenza injectable quadriv alent preservative free 10/11/2022,04/03/2021 Pfizer Covid-19 Vaccine 12+ 07/20/2021,,11/02/2020 Pneumococcal Conjugate PCV 20 03/21/2023 Pneumococcal Polysaccharide PPSV23 02/02/2021 Tdap 12/21/2020 Social History Tobacco Use Types Packs/Day Years Used Date Smoking Tobacco: Former Cigarettes Smokeless Tobacco: Former Tobacco Cessation:Counseling Given: Not Answered Comments:10 years ago Alcohol Use Standard Drinks/Week [...] Don't know 05/06/2022 10 :38 AM EDT Last Filed Vital Signs Vital Sign Reading Time Taken Comments Blood Pressure 134/70 09/06/2024 10:46 AM EST Pulse 84 09/06/2024 10:46 AM EST Temperature 36.8 ??C (98.3 ??F) 09/06/2024 10:[address] Respiratory Rate 20 09/06/2024 10:46 AM EST Oxygen Saturation 99% 09/06/2024 10:46 AM EST Inhaled Oxygen Concentration - - Weight 123 kg (271 lb 8 oz) 09/06/2024 10:46 AM EST Height 162.6 cm (5' 4 ) 09/06/2024 10:46 AM EST Body Mass Index 46.6 09/06/2024 10:46 AM EST Plan of Treatment Upcoming Encounters Date Type Department Care Team (Late st Contact Info) Description 11/05/2024 10:30 AM EDT Medication Management [facility] [address] [place] [address] Stephani Sepulveda, PharmD [address] [place] [address] 01/20/2025 10:00 AM EDT Office Visit [facility] [address] [place] [address] Jennifer Roach, OD [address] [place] [address] Health Maintenance Due Date Last Done Comments Diabetes: Foot Exam 1991 Family Planning (PISQ) 02/10/1996 COVID-19 Vaccine ( season) 2024 07/20/2021, 11/23/2020, 11/02/2020 Influenza Vaccine (#1) 2024 , 10/11/2022, 04/03/2021 Eye Exam 07/18/2024 07/18/2022, 07/07, 07/18/2022, Additional history exists Mammogram 11/28/2024 11/28/2022, 11/28/2022 Depression Screening 01/08/2025 01/09/2024, 01/09/20 24 Diabetes: Urine Protein Screening 02/19/2025 02/20/2024, 02/20/2023, 01/17/2022, Additional history exists Lipid Panel 02/19/2025 02/20/2024, 02/04, 01/17/2022, Additional history exists Diabetes: Hemoglobin A1C 03/09/2025 03 025, 08/26/2024, 05/24/2024, Additional history exists SDOH Screening 08/27/2025 08/27/2024 Alcohol/Substance Use Screening 09/06/2025 09/06/2024 Tobacco Screening 09/06/2025 09/06/2024 Cervical Cancer Screening 03/21/2026 Pap Smear 03/21/2026 03/21/2023 HPV/Cotest 03/21/2028 03/21/2023 DTaP/Tdap/Td Vaccines (2 - Td or Tdap) 12/21/2030 12/21/2020 Zoster Vaccines (1 of 2) 2031 RSV Patients and Patients Aged 60 years or older (1 - 1-dose 75+ series) 02/10/2056 Pneumococcal Vaccine: Pediatrics (0 to 5 Years) and At-Risk Patients (6 to 49) Years) Completed 03/21/2023, 02/02/2021 HIV Screening Completed 02/20/2024, 02/04, 01/17/2022, Additional history exists Hepatitis A Vaccines Completed 02/20/2024, 01/23/20 Hepatitis B Vaccines Completed 02/20/2024, 03/21/2023, 01/22/2023 Hepatitis C Screening Completed 02/20/2024 , 02/20/2023, 01/17/2022, Additional history exists HIB Vaccines Aged Out No longer eligi ble based on patient's age to complete this topic HPV Vaccines Aged Out No longer eligi ble based on patient's age to complete this topic IPV Vaccines Aged Out No longer eligi ble based on patient's age to complete this topic Meningococcal Vaccine Aged Out No jeffy sue eligible based on patient's age to complete this topic RSV under 20 months Aged Out No longe r eligible based on patient's age to complete this topic Rotavirus Vaccines Aged Out No longer eligible based on patient's age to complete this topic Goals Goal Patient Goal Type Associated Problems Recent Progress Patient-Stated? Author Record your blood pressure once per day Blood Pressure No Puia, Stephani, PharmD Blood Pressure < 140/90 Blood Pressure 134/70(2024 10:46 AM EST) No Puia, Stephani, PharmD Record your blood sugar as directed Result Component No Puia Stephani, PharmD Note: Use CGM, ensuring sensor is scanned at least once every 8 hours to capture 24H data. Check BG manually, as directed. Hemoglobin A1c < 7 Result Component 6.8( 10:50 AM EST) No Puia, Stephani, PharmD Procedures Procedure Name Priority Date/Time Associated Diagnosis Comments POCT GLYCATED HEMOGLOBIN, TOTAL Routine 09/06/2024 10:50 AM EST Type 2 diabetes mellitus without complication, without long-term current use of insulin (CMS/HCC) POCT GLUCOSE Routine 09/06/2024 10:50 AM EST Type 2 diabetes mellitus without complication, without long-term current use of insulin (CMS/HCC) POCT GLYCATED HEMOGLOBIN, TOTAL Routine 08/26/2024 12:07 PM EST Type 2 diabetes mellitus without complication, without long-term current use of insulin (CMS/HCC) ALBUMIN, RANDOM URINE W/CREATININE Routine 02/20/2024 12:01 PM EDT Type 2 diabetes mellitus without complication, without long-term current use of insulin (CMS/HCC) Essential hypertension Other hyperlipidemia Fatty liver Anxiety Irritable bowel syndrome with constipation and diarrhea Renal cyst Palpitations Heartburn Acute right ankle pain Cracked skin on feet Healthcare maintenance HEPATITIS C AB W/REFL TO HCV RNA, QN, PCR Routine 02/20/2024 11:51 AM EDT Type 2 diabetes mellitus without complication, without long-term current use of insulin (CMS/HCC) Essential hypertension Other hyperlipidemia Fatty liver Anxiety Irritable bowel syndrome with constipation and diarrhea Renal cyst Palpitations Heartburn Acute right ankle pain Cracked skin on feet Healthcare maintenance HIV 1/2 ANTIGEN/ANTIBODY, FOURTH GENERATION W/RFL Routine 02/20/2024 11:51 AM EDT Type 2 diabetes mellitus without complication, without long-term current use of insulin (CMS/HCC) Essential hypertension Other hyperlipidemia Fatty liver Anxiety Irritable bowel syndrome with constipation and diarrhea Renal cyst Palpitations Heartburn Acute right ankle pain Cracked skin on feet Healthcare maintenance LIPID PANEL, STANDARD Routine 02/20/2024 11:51 AM EDT Type 2 diabetes mellitus without complication, without long-term current use of insulin (CMS/HCC) Essential hypertension Other hyperlipidemia Fatty liver Anxiety Irritable bowel syndrome with constipation and diarrhea Renal cyst Palpitations Heartburn Acute right ankle pain Cracked skin on feet Healthcare maintenance HPV MRNA E6/E7 REFLEX TO HPV 16, 18/45 Routine 03/21/2023 12:49 PM EDT PAP SMEAR Routine 03/21/2023 12:49 PM EDT BI MAMMOGRAM SCREENING TOMOSYNTHESIS BILATERAL Routine 11/28/2022 11:00 AM EDT from Last 3 Months or Most Recently Relevant to Health Maintenance Results * (ABNORMAL) POCT HGB A1C (09/06/2024 10:50 AM EST) Only the most recent of2 resultswithin the time period is included. Hemoglobin A1C 6.8(A) 4.0 - 6.0 % QC Media Lot # [id number] Lot# Expiration Date Blood 09/06/2024 10:5 0 AM EST Malissamaria del carmen Sweet DO POINT OF CARE TEST ENTER/TEOFILO T ORDERABLES Final Result * (ABNORMAL) POCT Glucose (09/06/2024 10:50 AM EST) Glucose Blood, POC 251(A) 60 - 200 mg/dL QC Media Lot # [id number] Lot# Expiration Date [id number] Blood Capillary blood specimen / Unknown 09/06/2024 10:50 AM EST Malissamaria del carmen Sweet DO POINT OF CARE TEST ENTER/TEOFILO T ORDERABLES Final Result * Albumin, Random Urine W/Creatinine (02/20/2024 12:01 PM EDT) Creatinine, Urine 152.65 mg/dL [facility] Microalbumin Urine 9.0 mg/L [facility] Microalbum Creatinine Ratio Ur 5.8 <30 ug/mg cr [facility] Comment:Albumin/Creatinine R atio Reference Ranges: Normal: < 30 ug/mg creatinine Microalbuminuria: 30 - 300 ug/mg creatinineClinical Albuminuria: > 300 ug/mg creatinine Urine (Urine, Random) 02/20/2024 12:01 PM EDT 02/20/2024 1:05 PM EDT Malissa Micki DO LAB URINE ORDERABLES Final R esult Performing Organization Address City/[facility]/ZIP Co de Phone Number [facility] [address] [place] [phone] * Hepatitis C Antibody with Reflex to HCV, RNA, Quantitative, Real-Time PCR (02/20/2024 11:51 AM EDT) Pathologist [facility] [place] Hepatitis C Antibody Nonreactive Nonreactive [facility] Comment:Antibodies to HCV no t detected; does not exclude early acuteHCV infection. Blood Venous blood specimen / Unknown 02/20/2024 11:51 AM EDT 02/20/2024 1:24 PM EDT Malissa Micki DO LAB BLOOD ORDERABLES Final R ult Performing Organization Address City/[facility]/ZIP Co de Phone Number [facility] [address] [place] [phone] * HIV-1/2 Antigen and Antibodies, Fourth Generation, with Reflexes (02/20/2024 11:51 AM EDT) HIV AB/AG Nonreactive Nonreactive [facility] Comment:HIV-1 p24 Ag and/or HIV-1/HIV-2 Ab not detected.A test result that is nonreactive does not exclude thepossibility of exposure to or infection with HIV-1 and/orHIV-2. Nonreactive results in this assay for individualswith prior exposure to HIV-1 and/or HIV-2 may be due toantigen and antibody levels that are below the limit ofdetection of this assay.The Orecon HIV Ag/Ab Combo assay result andsupplemental assay results should be interpreted inconjunction with the patient's clinical presentation,history and other laboratory results. If the results areinconsistent with clinical evidence, additional testing issuggested to confirm the result. Blood Venous blood specimen / Unknown 02/20/2024 11:51 AM EDT 02/20/2024 1:24 PM EDT Malissa Sweet DO LAB BLOOD ORDERABLES Final R esult Performing Organization Address [facility] Co de Phone Number [facility] [address] [place] [phone] * Lipid Panel, Standard (02/20/2024 11:51 AM EDT) Triglycerides 95 <150 mg/dL [facility] Comment:Desirable Triglyceri de: less than 150 mg/dLBorderline High Triglyceride 150-199 mg/dLHigh Triglyceride: 200-499 mg/dLVery High Triglyceride: greater than or equal to 5OO mg/dL Cholesterol 162 <200 mg/dL [facility] Comment:Desirable Cholestero l: less than 200 mg/dLBorderline High Cholesterol: 200-239 mg/dLHigh Cholesterol: greater than 239 mg/dL LDL Cholesterol Calculated 88 <100 mg/dL [facility] Comment:Desirable LDL: less than 100 mg/dLNear Optimal/Above Optimal LDL: 110- 129 mg/dLBorderline High LDL: 130-159 mg/dLHigh LDL: 160-189 mg/dLVery High LDL: greater than or equal to 190 mg/dL HDL Cholesterol 55 >40 mg/dL [facility] Comment:Desirable HDL: great er than 40 mg/dL Note: This HDL assay may give artificially low results in patients with liver disease. Blood Venous blood specimen / Unknown 02/20/2024 11:51 AM EDT 02/20/2024 1:24 PM EDT Malissa Sweet DO LAB BLOOD ORDERABLES Final R esult Performing Organization Address [facility]/ZIP Co de Phone Number [facility] [address] [place] [phone] * HPV mRNA E6/E7 w/Reflex to HPV Genotypes 16, 18/45 (03/21/2023 12:49 PM EDT) HPV nRNA E6/E7 Not Detected Not Detected [facility] Comment:Methodology: Transcr iption-Mediated AmplificationThis assay detects E6/E7 viral messenger RNA (mRNA) from 14high-risk HPV types (16,18,31,33,35,39,45,51,52,56,58,59,66,68).Cervical sources are required for HPV testing.If a vaginal source from a patient who has had atotal hysterectomy with removal of cervix wassubmitted, please contact the testing laboratoryfor alternative testing options.For additional information, please refer [email or web address]/faq/[email or web address](This link if provided for information/educational purposes only.)THIS TEST WAS PERFORMED AT:[employer] [place] [phone] PORTILLO MD HPV mRNA E6/E7 [facility] HPV 16 RNA [facility] HPV 18/45 RNA [facility] 03/21/2023 12:4 9 PM EDT 03/24/2023 9:30 AM EDT Malissa Sweet DO LAB CYTOLOGY ORDERABLES Renetta l Result [facility] [address] [place] [phone] * Pap Smear (03/21/2023 12:49 PM EDT) 03/21/2023 12:4 9 PM EDT 03/24/2023 9:30 AM EDT Narrative [facility] - 04/01/2023 1:59 PM EDT ----- ------- Name: PakAntonietta ?Age/Sex: 43/F ? : 1980 Unit#: [id number] ?? Attend Dr: Malissa Sweet DO ?Re03/21/23 ?Status: DEP REF ? Location: HO.HHCLNP ? Disch: ? ----- ------- SPEC : [id number] ?RECD: 03/24/23 ? STATUS: ??SOUT ? REQ NUM: [id number] ? LO: 03/21/23-1248 ? SUBM DR: Malissa Sweet DO ? ENTERED: ??03/24/23-1151 ?SP TYPE: Pap Smr ?OTHR DR: ? ORDERED: ??Pap Smear ? Interpretation ?? Satisfactory for evaluation. ?? Negative for intraepithelial lesion or malignancy. ? HPV mRNA E6/E7: ?NOT DETECTED ? This assay detects E6/E7 viral messenger RNA (mRNA) from 14 high-risk HPV types (16, 18, ?? 31, 33, 35, 39, 45, 51, 52, 56, 58, 59, 66, 68) ? HPV testing performed by [employer], [place], [place]. ??See reference laboratory ?? portion of the EMR for entire report. ?Clinical Information LMP: 03/14/23 Previous PAP test: Unknown date/findings ? Material Received ?? ThinPrep-Vaginal/Cervical ----- ------- Signed (signature on file) Emili Tineo Julieta 04/01/23 9010 ? ----- ------- ? END OF REPORT ? us Malissa Sweet DO LAB CYTOLOGY ORDERABLES Renetta l Result [facility] [address] [place] [phone] * BI Mammogram Screening Tomosynthesis Bilateral (11/28/2022 11:00 AM EDT) Anatomical Region Laterality Modality Breast Bilateral Mammography 11/28/2022 11:0 0 AM EDT Narrative 12/01/2022 11:52 AM EDT ? [facility] [place] ? [address] ?[place] [address] ? Mammography Report ? Signed ? Patient: Pak,Antonietta ?MR#: [id number] ?? [id number] ? : 1980 ?Acct:[id number] ? Age/Sex: 42 / F ?ADM Date: 11/28/22 ? Loc: HO.MAMMO ? Attending Dane Sweet DO ? Ordering Physician: Malissa Sweet DO ?Results: 2B ?? enign Findings ? Date of Service: 11/28/22 ?Follow Up: 1 Year From Orig ?? inal Mammogram ? Procedure(s): MM tomosynthesis screening BI ?? Accession Number(s): [id number] ? cc: Malissa Sweet DO ? EXAMINATION: ?? MM SCREENING DIGITAL BREAST TOMOSYNTHESIS, BILATERAL ? CLINICAL INFORMATION: ? Screening. Asymptomatic. ? The lifetime risk of breast cancer based on the Tyrer-Cuzick Model is ?? 7%. ? COMPARISON: ?? Mammography: 01/06/2019, 08/04/2018 (baseline); right breast ultrasound ?? 01/06/2019; bilateral breast ultrasound 08/04/2018. ? TECHNIQUE: ?? Digital breast tomosynthesis is performed in both the craniocaudal and ?? mediolateral oblique views along with computer-aided detection (CAD). ?? Synthesized 2D images are generated from the tomosynthesis. ? FINDINGS: ?? There are scattered areas of fibroglandular density (ACR BI-RADS breast ?? composition Category b). ? There are no significant masses, abnormal calcifications, or other ?? abnormalities. ??No architectural abnormality or developing density or ?? significant change from prior studies. Axillary nodes stable. Skin ?? contours are smooth. ? MM/MM tomosynthesis screening BI ?? IMPRESSION: ?? No mammographic evidence of malignancy. ? ASSESSMENT: ? BI-RADS 2: Benign ? RECOMMENDATION: ?? Routine annual mammography screening. ? This patient's information was entered into a reminder system with a ?? target due date for their next mammogram. ? Dictated By: ?Nitin Amezcua MD ? Signed By: ?<Electronically signed by Nitin Amezcua MD in OV> ?12/01/22 1149 ? DD/ 1100 ? TD/TT: ? Guest Advisor: GROSS ? Procedure Note Jose R, Image - 01/02/2023 [facility] [address] [place], [place] [address] Mammography Report Signed Patient: Mary Pak#: [id number] : 1980Acct:[id number] Age/Sex: 42 / FADM Date: 11/28/22 Loc: .MAMMO Attending Dr: Malissa Sweet DO Ordering Physician: Malissa Sweetults: 2B enign Findings Date of Service: 11/28/22Follow Up: 1 Year From Orig inal Mammogram Procedure(s): MM tomosynthesis screening BI Accession Number(s): [id number] cc: Malissa Sweet DO EXAMINATION: MM SCREENING DIGITAL BREAST TOMOSYNTHESIS, BILATERAL CLINICAL INFORMATION: Screening. Asymptomatic. The lifetime risk of breast cancer based on the Tyrer-Cuzick Model is 7%. COMPARISON: Mammography: 01/06/2019, 08/04/2018 (baseline); right breast ultrasound 01/06/2019; bilateral breast ultrasound 08/04/2018. TECHNIQUE: Digital breast tomosynthesis is performed in both the craniocaudal and mediolateral oblique views along with computer-aided detection (CAD). Synthesized 2D images are generated from the tomosynthesis. FINDINGS: There are scattered areas of fibroglandular density (ACR BI-RADS breast composition Category b). There are no significant masses, abnormal calcifications, or other abnormalities. No architectural abnormality or developing density or significant change from prior studies. Axillary nodes stable. Skin contours are smooth. MM/MM tomosynthesis screening BI IMPRESSION: No mammographic evidence of malignancy. ASSESSMENT: BI-RADS 2: Benign RECOMMENDATION: Routine annual mammography screening. This patient's information was entered into a reminder system with a target due date for their next mammogram. Dictated By: Nitin Amezcua MD Signed By: <Electronically signed by Nitin Amezcua MD in OV> 12/01/22 1149 DD/ 1100 TD/TT: Guest Advisor: GROSS [facility] External Provider IMG BI PROCEDURES Edited Result - Final from Last 3 Months or Most Recently Relevant to Health Maintenance Insurance [employer] Private C3 Care Teams Card Hand Relationship Specialty Start Date End Date Malissa Sweet DO [address] [place] [phone] PCP - General Family Medicine 12/21/20
[2024-10-29 13:23] LABS: Hematocrit 35.1 % (37.0-47.0); Hemoglobin 10.8 g/dl (12.0-16.0); Mean Corpuscular HGB Conc 30.8 g/dl (31.0-35.0); Mean Corpuscular Hemoglobin 24.5 pg (27.0-33.0); Mean Corpuscular Volume 79.6 fL (80.0-98.0); Mean Platelet Volume 9.9 fL (9.4-12.3); Platelet Count 308 X10*3/uL (160-400); Red Blood Count 4.41 X10*6/uL (4.20-5.50); Red Cell Distribution Width 15.5 % (11.0-16.0); White Blood Count 10.8 X10*3/uL (4.8-10.8)
[2024-10-29 13:41] LABS: Alanine Aminotransferase 13 U/L (0-31); Albumin Level 3.9 g/dL (3.5-5.0); Alkaline Phosphatase 93 U/L (39-117); Anion Gap 10 (12-20); Aspartate Amino Transferase 18 U/L (5-31); Bilirubin Direct 0.1 mg/dL (0.0-0.5); Bilirubin Total 0.3 mg/dL (0.0-1.0); Blood Urea Nitrogen 8 mg/dL (9-16); Calcium 8.9 mg/dL (8.4-10.2); Carbon Dioxide 26 mmol/L (22-29); Chloride 106 mmol/L (96-108); Cholesterol 163 mg/dL (<200); Estimated Average Glucose 131 mg/dL; Estimated Glomerular Filt Rate > 60; Glucose Random 122 mg/dL (60-115); HDL Cholesterol 56 mg/dL (>40); Hemoglobin A1C 130.2753 umol/L; Hemoglobin A1c % 6.2 % (<6.0); LDL Cholesterol Calculated 89 mg/dL (<100); Sodium 138 mmol/L (135-145); Total Protein 7.4 g/dL (6.5-8.0); Triglycerides 94 mg/dL (<150)
[2024-10-29 13:50] LABS: Creatinine Urine 244.76 mg/dL; Microalbum/Creatinine Ratio Ur 6.5 ug/mg cr (<30)
[2024-10-29 14:10] LABS: Free T4 (Free Thyroxine) 1.01 ng/dL (0.71-1.85); Thyroid Stimulating Hormone 1.13 uIU/mL (0.32-4.0); Vitamin D 25-OH Total 24.8 ng/mL (>30)
[2024-10-29 14:11] LABS: HBS Num1 > 1000.00 mIU/mL (0-7.99); HBc Num1 0.06 S/CO (0.00-0.79); HBsAGNum1 0.33 S/CO (0.00-0.99); HIV AB/AG Nonreactive (Nonreactive); HIV Num 1 0.08 S/CO (0.00-0.99); Hepatitis B Core Antibody Nonreactive (Nonreactive); Hepatitis B Surface Antigen Negative (Negative); ~HepC Num1 0.09 S/CO (0.00-0.79); ~Hepatitis B Surface Antibody REACTIVE (Nonreactive); ~Hepatitis C Antibody Nonreactive (Nonreactive)
[2024-10-29 14:47] LABS: CT PCR NOT DETECTED (Not Detect.); NG PCR NOT DETECTED (Not Detect.)
[2024-11-01 17:02] LABS: RPR Rapid Plasma Reagin NON-REACTIVE (NON-REACTIVE)
[2024-11-02 07:46] LABS: Hepatitis A Antibody IgG REACTIVE (Nonreactive); ~Hepatitis A Antibody IgG 9.86 S/CO (0.00-0.99)
[2024-11-02 10:28] LABS: Alpha Fetoprotein 1.7 ng/mL
== END 2024-10-29 11:47 | disposition home or self-care (01) ==
LOC: HO.HHCL 11:46
PROVIDERS: Visit Provider Family Medicine
DX: Z00.00 Encounter for general adult medical examination without abnormal findings (principal); E11.9 Type 2 diabetes mellitus without complications; I10 Essential (primary) hypertension; E78.49 Other hyperlipidemia; K76.0 Fatty (change of) liver, not elsewhere classified; F41.9 Anxiety disorder, unspecified; K58.2 Mixed irritable bowel syndrome; N28.1 Cyst of kidney, acquired; R00.2 Palpitations; R12 Heartburn; M25.571 Pain in right ankle and joints of right foot; R23.4 Changes in skin texture; G47.09 Other insomnia; G47.30 Sleep apnea, unspecified; L81.9 Disorder of pigmentation, unspecified; R22.9 Localized swelling, mass and lump, unspecified; L30.4 Erythema intertrigo; Z12.31 Encounter for screening mammogram for malignant neoplasm of breast
CPT/HCPCS: 80048; 80061; 80076; 82043; 82105; 82306; 82570; 83036; 84439; 84443; 85027; 86592; 86704; 86706; 86708; 86803; 87340; 87389; 87491; 87591

== ENCOUNTER 2024-11-11 09:44 | Outpatient (REF) | payer MEDICAID, SELFPAY ==
--- OUTSIDE RECORDS SUMMARY | 2024-11-11 10:31 | XMS_ITS | Encounter Summary ---
Author Organization [employer] Address [address] [facility] 7 [place] [address] Care Team Providers Care Process Camera Operator Name Role Phone MegaMalissa sawyer Primary Care Provider [phone] Reason for Visit * Reason Onset Date Comments Prior Authorization 11/08/2024 Ozempic - AP PROVED Encounter Details Date Type Department Care Team ([facility] st Contact Info) Description 11/08/2024 Telephone [facility] MEDICINE [address] [place] [address] Stephani Sepulveda, PharmD [address] [place] [address] Prior Authorization (Ozempic - APPROVED ) Social History Tobacco Use Types Packs/Day Years [...] encounter Miscellaneous Notes * Telephone Encounter - Stephani Sepulveda PharmD - 11/08/2024 11:23 AM EDT Outgoing call to patient, SANKET for Ozempic is now approved &med is awaiting bean picker in pharmacy. Patient demonstrates understanding, denies additional questions or concerns at this time. Follow up,as previously scheduled, in CDTM for next steps. documented in this encounter Plan of Treatment Upcoming Encounters Date Type Department Care Team (Late st Contact Info) Description 12/06/2024 10:30 AM EDT Medication Management [facility] MED[facility] [address] [place] [address] Stephani Sepulveda PharmD [address] [place] [address] 01/20/2025 10:00 AM EDT Office Visit [facility] OPTOMETRY [address] [place] [address] Jennifer Roach OD [address] [place] [address] 02/04/2025 9:45 AM EDT Office Visit [facility] MEDICINE [address], [place] [phone] Dylan Saldaña MD [address] [place] [address] documented as of this encounter Goals Goal Patient Goal Type Associated Problems Recent Progress Patient-Stated? Author Record your blood pressure once per day Blood Pressure No Puia, Stephani, PharmD Blood Pressure < 140/90 Blood Pressure 134/70(2024 10:46 AM EST) No Puia, Stephani, PharmD Record your blood sugar as directed Result Component No Puia, Stephani, PharmD Note: Use CGM, ensuring sensor is scanned at least once every 8 hours to capture 24H data. Check BG manually, as directed. Hemoglobin A1c < 7 Result Component 6.2( 11:52 AM EDT) No Puia, Stephani, PharmD documented as of this encounter Visit Diagnoses Not on filedocumented in this encounter Additional Health Concerns Assessment Noted Time PHQ-9 Depression Total Score: 6 01/09/20 24 11:29 AM EDT documented as of this encounter Care Teams Process Camera Operator Relationship Specialty Start Date End Date Malissa Sweet DO [address] [place] [address] PCP - General Family Medicine 12/21/20 documented as of this encounter
--- OUTSIDE RECORDS SUMMARY | 2024-11-11 10:31 | XMS_ITS | Encounter Summary ---
Author Organization [employer] Address [address] [facility] 7[address] [place] [address] Care Team Providers Care Fish Skinning Machine Feeder Name Role Phone Malissa Sweet DO Primary Care Provider Stephani Sepulveda PharmD Unavailable [phone] Reason for Visit * Reason Onset Date Comments OV 08/06/23 08/06/2023 Encounter Details Date Type Department Care Team ([facility] st Contact Info) Description 08/06/2023 Telephone [facility] [address] [place], [place] [phone] Malissa Sweet DO [address] [place], [place] [phone] OV 08/06/23 Social History Tobacco Use Types [...] with pcp 08/06/23. Please contact pt at [phone]. documented in this encounter Plan of Treatment Upcoming Encounters Date Type Department Care Team (Late st Contact Info) Description 12/06/2024 10:30 AM EDT Medication Management [facility] [address] [place] [phone] Stephani Sepulveda, PharmD [address] [place] [address] 01/20/2025 10:00 AM EDT Office Visit [facility] OPTOMETRY [address] [place] [phone] Jennifer Roach OD [address] [place] [address] 02/04/2025 9:45 AM EDT Office Visit [facility] [address] [place] [address] Dylan Saldaña MD [address] [place] [address] documented as of this encounter Goals Goal Patient Goal Type Associated Problems Recent Progress Patient-Stated? Author Record your blood pressure once per day Blood Pressure No Stephani Sepulveda PharmCaitlin Blood Pressure < 140/90 Blood Pressure 134/70(2024 10:46 AM EST) No Stephani Sepulveda PharmD Record your blood sugar as directed Result Component No Stephani Sepulveda PharmD Note: Use CGM, ensuring sensor is scanned at least once every 8 hours to capture 24H data. Check BG manually, as directed. Hemoglobin A1c < 7 Result Component 6.2( 11:52 AM EDT) No Stephani Sepulveda PharmCaitlin documented as of this encounter Visit Diagnoses Not on filedocumented in this encounter Additional Health Concerns Assessment Noted Time PHQ-9 Depression Total Score: 1 10/12/19 10:27 AM EDT documented as of this encounter Care Teams Fish Skinning Machine Feeder Relationship Specialty Start Date End Date Malissa Sweet DO [address] [place] [address] PCP - General Family Medicine 12/21/20 Stephani Sepulveda PharmD [address] [place] [address] Pharmacist Internal Medicine 01/24/23 09/29/24 documented as of this encounter
--- OUTSIDE RECORDS SUMMARY | 2024-11-11 10:32 | XMS_ITS | Encounter Summary ---
Author Organization [employer] Address [address] [place] [address] 7t [place] [address] Care Team Providers Care Basket Filler Name Role Phone Malissa Sweet Primary Care Provider PuStephani fisher PharmD Unavailable Encounter Details Date Type Department Care Team (Late st Contact Info) Description 06/24/2022 Orders Only [facility] [address] [place] [address] Tammy Bryson LPN Social History Tobacco Use [...] Description 12/06/2024 10:30 AM EDT Medication Management [facility] MEDICINE [address] [place] [address] Puia, Stephani, PharmD [address] [place] [address] 01/20/2025 10:00 AM EDT Office Visit [facility] OPTOMETRY [address] [place] [address] Jennifer Roach, OD [address] [place] [address] 02/04/2025 9:45 AM EDT Office Visit [facility] MEDICINE [address] [place] [address] Dylan Saldaña MD [address] [place] [address] documented as of this encounter Procedures Procedure [...] (08/18/2022 11:38 AM EST) Color Urine Yellow [facility] Appearance Urine Clear [facility] PH 5.5 5.0 - 9.0 [facility] Glucose Urine UA >=1000(A) Negative mg/dL [facility] Urine Blood Small (1+)(A) Negative [facility] Specific Dorsey - Urine 1.010 1.005 - 1.025 [facility] Urine Protein Negative Neg-Trace mg/dL [facility] Urine Ketones Negative Negative mg/dL [facility] Nitrite Urine Negative Negative [facility] Leukocyte Esterase Urine Negative Negative [facility] RBC Urine 0-2 0 - 2 /HPF [facility] Urine WBC 0-5 0 - 5 /HPF [facility] Urine Squamous Epithelial Cell 0-2 0 - 2 /HPF [facility] Urine Bacteria None Seen None Seen [facility] Hyaline Casts, Urine 0-2 0 - 2 /LPF [facility] 08/18/2022 11:3 8 AM EST 08/18/2022 11:41 AM EST Narrative [facility] - 08/18/2022 12:02 PM EST Urine, Clean Catch [facility] External Provider LAB URI NE ORDERABLES Final Result Performing Organization Address [facility] de Phone Number [facility] [address] [place] [phone] * HIGH SENSITIVITY TROPONIN I (08/18/2022 10:05 AM EST) [facility] TROPONIN I HIGH SENSITIVITY <3.5 <3.5 - 17.0 ng/L [facility] Comment:The Porter high sens itivity Troponin-I results should beused in conjunction with other diagnostic information suchas ECG, clinical observations and information, and patientsymptoms to aid in the diagnosis of VT. 08/18/2022 10:0 5 AM EST 08/18/2022 10:08 AM EST [facility] External Provider LAB BLO OD ORDERABLES Final Result Performing Organization Address [facility] Phone Number [facility] [address] [place] [phone] * (ABNORMAL) Basic Metabolic Panel (08/18/2022 10:05 AM EST) [facility] Sodium 135 135 - 145 mmol/L [facility] Potassium 3.9 3.3 - 5.1 mmol/L [facility] Chloride 101 96 - 108 mmol/L [facility] Carbon Dioxide 22 22 - 29 mmol/L [facility] Anion Gap 16 12 - 20 [facility] Urea Nitrogen (BUN) 7(L) 9 - 16 mg/dL [facility] Creatinine, Serum 0.75 0.5 - 1.4 mg/dL [facility] Creatinine Clr Calc Pharmacy 127.4 [facility] Comment:Provided height and weight: 162.56 cm,122.47 kg.eGFR (calculated from the MDRD study equation) and eCrCl(calculated from the Cockcroft-Gault equation) are based ondifferent parameters and may not yield comparable results.If eCrCl result is absurd, please check patient'sheight/weight. Estimated Glomerular Filt Rate >60 [facility] Comment:NOTE: For -Am erican individuals, multiply the result by 1.210.Chronic Kidney Disease: Estimated GFR < 60 mL/min/1.55x0Jrqiea Kidney Disease: Estimated GFR < 15 mL/min/1.73m2 Glucose 311(H) 60 - 115 mg/dL [facility] Calcium 8.9 8.4 - 10.2 mg/dL [facility] 08/18/2022 10:0 5 AM EST 08/18/2022 10:08 AM EST us [facility] External Provider LAB BLO OD ORDERABLES Final Result [facility] [address] [place] [phone] * (ABNORMAL) CBC auto differential (08/18/2022 10:05 AM EST) White Blood Count 8.7 4.8 - 10.8 X10*3/uL [facility] Red Blood Count 4.50 4.20 - 5.50 X10*6/uL [facility] Hemoglobin 12.7 12.0 - 16.0 g/dl [facility] Hematocrit 37.0 37.0 - 47.0 % [facility] Mean Corpuscular Volume 82.2 80.0 - 98.0 fL [facility] Mean Corpuscular Hemoglobin 28.2 27.0 - 33.0 pg [facility] Mean Corpuscular HGB Conc 34.3 31.0 - 35.0 g/dl [facility] Red Cell Distribution Width 12.8 11.0 - 16.0 % [facility] Platelet Count 324 160 - 400 X10*3/uL [facility] Mean Platelet Volume 8.8(L) 9.4 - 12.3 fL [facility] Neutrophils Percent Auto 58.3 45 - 73 % [facility] Imm Gran Pct Auto 0.2 0.0 - 0.4 % [facility] Lymphocytes Percent Auto 34.8 20 - 40 % [facility] Monocytes Percent Auto 5.3 2 - 11 % [facility] Eosinophils Percent Auto 0.9 0 - 4 % [facility] Basophils Percent Auto 0.5 0 - 2 % [facility] NRBC Pct Auto 0.0 0.0 - 0.2 /100WBC [facility] Neutrophils Absolute Auto 5.1 2.0 - 8.3 x10*3/uL [facility] Imm Gran Abs Auto 0.02 0.00 - 0.03 X10*3/uL [facility] Lymphocytes Absolute Auto 3.0 1.2 - 4.9 X10*3/uL [facility] Monocytes Absolute Auto 0.5 0.1 - 1.2 X10*3/uL [facility] Eosinophils Absolute Auto 0.1 0.0 - 0.4 X10*3/uL [facility] Basophils Absolute Auto 0.0 0.0 - 0.2 X10*3/uL [facility] NRBC Abs Auto 0.000 0.0 - 0.012 X10*3/uL [facility] 08/18/2022 10:0 5 AM EST 08/18/2022 10:08 AM EST us [facility] External Provider LAB BLO OD ORDERABLES Final Result [facility] [address] [place] [phone] [phone] * (ABNORMAL) GLUCOSE, WHOLE BLOOD (08/18/2022 9:22 AM EST) Glucose, Whole Blood 279(H) 60 - 115 mg/dL [facility] Comment:METER #: [id number] 08/18/2022 9:22 AM EST 08/18/2022 9:25 AM EST [facility] External Provider LAB BLO OD ORDERABLES Final Result [facility] [address] [place] [address] [phone] documented in this encounter Visit Diagnoses Not on filedocumented in this encounter Care Teams Basket Filler Relationship Specialty Start Date End Date Malissa Sweet DO [address] [place] [address] PCP - General Family Medicine 12/21/20 Stephani Sepulveda PharmD [address] [place] [address] Pharmacist Internal Medicine 01/24/23 09/29/24 documented as of this encounter
--- OUTSIDE RECORDS SUMMARY | 2024-11-11 10:32 | XMS_ITS | Clinical Summary ---
Author Organization [employer] Address [address] [facility] [address] [place] [address] Care Team Providers Care Inverted Block Operator Name Role Phone MegaMalissa sawyer Primary Care Provider [phone] Allergies No known active allergies Medications SUMAtriptan (Imitrex) 50 MG tablet TAKE 1 TABLET BY MOUTH AT ONSET OF MIGRAINE. MAY REPEAT ONCE AFTER 2 HOURS IF NEEDED. DO NOT EXCEED 4 TABLETS IN 24 HOURS 07/17/19 22 Active Blood Pressure Monitor [facility] USE TO CHECK BLOOD PRESSURE EVERY DAY DIRECTED 01/25/20 23 Active albuterol 108 (90 Base) MCG/ACT inhaler Inhale 2 puffs every 4 (four) hours if needed for wheezing. 18 g 3 10/08/19 24 Active Continuous Glucose Shear Assembler ([employer] Danilo 3 Scotrun) device 1 each 3 times daily. Use [...] tablet 1 07/27/19 25 Active nystatin (Mycostatin) 975817 UNIT/GM powder Apply topically 2 times daily. 120 g 3 09/07/19 25 2025 Active traZODone (Desyrel) 50 [...] THE EVENING WITH MEALS 180 tablet 10/01/19 25 Active insulin pen needle (Pentips) 32G x 4 mm miscIndications :Type 2 diabetes mellitus without complication, without long-term current use of insulin (CMS/HCC) Use 1 daily with Lantus 100 each 10/01/19 Active TRUEplus Lancets 33G miscIndications :Type 2 diabetes mellitus without complication, without long-term current use of insulin (CMS/HCC) Use to test blood sugar up to three times daily 100 each 10/01/19 Active Fiber-Lax 625 MG tablet TAKE 1 TABLET TWICE DAILY IN THE MORNING AND IN THE EVENING 180 tablet 10/06/19 Active omeprazole (PriLOSEC) [address] capsule TAKE 1 CAPSULE BY MOUTH EVERY MORNING BEFORE BREAKFAST DO NOT BREAK, CRUSH, DISSOLVE OR CHEW 90 capsule 10/06/19 Active Semaglutide, 2 MG/DOSE, (Ozempic, 2 MG/DOSE,) 8 MG/3ML solution pen-injectorInd ications:Type 2 diabetes mellitus without complication, without long-term current use of insulin (CMS/HCC) Inject 0.75 mL (2 mg) under the skin 1 (one) time per week. 3 mL 10/09/19 Active Additional Information Patient not taking.Reported on 11/05/2024 insulin glargine (Lantus SoloStar) 100 UNIT/ML penIndications: Type 2 diabetes mellitus without complication, without long-term current use of insulin (CMS/HCC) Inject 10 Units under the skin at bedtime. Increase as directed to max of 24 units/day. 15 mL 10/09/19 25 Active FLUoxetine (PROzac) 20 MG capsule TAKE 1 CAPSULE BY MOUTH EVERY MORNING 30 capsule 10/27/19 25 Active Multiple Vitamins-Minera ls (Multivitamin-M inerals) tablet Take one tablet daily. 90 tablet 3 11/06/19 25 Active acetaminophen (Tylenol 8 Hour) 650 MG ER tablet TAKE 1 TABLET BY MOUTH EVERY 8 HOURS NEEDED FOR MILD PAIN, DO NOT BREAK, CRUSH, DISSOLVE OR CHEW 50 tablet 1 09/22/19 24 2024 Discontinued(M ed list cleanup (will not trigger notification to Pharmacy)) Diclofenac Sodium 1 % gel Apply 2 g topically if needed in the morning, at noon, in the evening, and at bedtime (pain). 150 g 09/22/19 24 2024 Discontinued(M ed list cleanup (will not trigger notification to Pharmacy)) methocarbamol (Robaxin) 750 MG tablet Take 1 tablet (750 mg) by mouth if needed in the morning and at bedtime for muscle spasms. 60 tablet 1 09/22/19 24 2024 Discontinued(M ed list cleanup (will not trigger notification to Pharmacy)) FLUoxetine (PROzac) 20 MG capsule TAKE 1 CAPSULE BY MOUTH EVERY MORNING 30 capsule 09/17/19 25 2024 Discontinued Active Problems Problem Noted Date Diagnosed Date [...] scheduled -s/p optho eval JUL 2022 at [facility], encouraged schedule f/u -foot exam next visit* Vertigo 07/02/2022 Vitamin D deficiency 07/02/2022 Encounters Date Type Department Care Team Description 11/08/2024 Telephone [facility] MEDICINE [address] [place] [phone] Stephani Sepulveda, PharmD Prior Authorization (Ozempic - APPROVED ) 11/05/2024 Telephone [facility] MEDICINE [address] [place] [phone] Stephani Sepulveda, PharmD Prior Authorization (Ozempic ) 11/05/2024 Telephone [facility] MEDICINE [address] [place] [address] Stephani Sepulveda, PharmD Bariatric referral 11/05/2024 Refill [facility] MEDICINE [address] [place] [address] Malissa Sweet DO 11/05/2024 Travel 10/28/2024 Patient Outreach [facility] MEDICINE [address] [place] [phone] Malissa Sweet DO Care Coordination (C3/CM F/U) 10/21/2024 Refill [facility] [place] [address] Malissa Sweet, 10/13/2024 Patient Outreach [facility] [place] [address] Malissa Sweet DO Care Coordination (C3/CM Follow up) 10/08/2024 Telephone [facility] [place] [address] Stephani Sepulveda, PharmD Prior Authorization (Ozempic) 10/08/2024 Telephone [facility] [place] [address] Stephani Sepulveda, PharmD Prior Authorization (Francine PA appeal denied ) 10/06/2024 Telephone [facility] [place] [address] Malissa Sweet DO 10/06/2024 Orders Only [facility] MEDICINE [address], [place] [address] Malissa Sweet DO Morbid obesity with BMI of 45.0-49.9, adult (CMS/[facility]) (Primary Dx) 10/05/2024 Telephone [facility] [place] [address] NoaiaStephani, PharmD Prior Authorization (Mounjaro - denied ) 10/03/2024 Refill [facility] [place] [address] Malissa Sweet DO 09/30/2024 Telephone [facility] [place] [address] PuiaTaqueriaStephani, PharmD Prior Authorization (Mounjaro) 09/30/2024 Telephone [facility] [place] [address] Stephani Sepulveda, PharmD Referral 09/30/2024 Travel 09/28/2024 Patient Outreach [facility] [place] [address] Malissa Sweet DO Care Coordination (Outreach) 09/17/2024 Population Health Risk Score Community [facility] (C3) Department [address] [place] [address], [place] [phone] Provider, Population Health Generic 09/16/2024 Refill [facility] MEDICINE [address] [place] [address] Malissa Sweet DO 09/10/2024 Patient Outreach [facility] MED [facility] PEDS [address] [place] [address] Malissa Sweet DO Care Coordination (Outreach) 09/06/2024 10:15 AM EST Office Visit [facility] MEDICINE [address] [place] [address] Malissa Sweet DO Type 2 diabetes mellitus without complication, without long-term current use of insulin ([facility]) (Primary Dx); Essential hypertension; Other hyperlipidemia; Fatty liver; Anxiety; Irritable bowel syndrome with constipation and diarrhea; Renal cyst; Heartburn; Other insomnia; Sleep-disordered breathing; Hyperpigmented skin lesion; Skin nodule; Intertrigo; Healthcare maintenance; Encounter for screening mammogram for malignant neoplasm of breast 09/06/2024 Travel 08/27/2024 Patient Outreach [facility] [address] [place] [address] Malissa Sweet DO Care Coordination (Outreach) 08/25/2024 Patient Outreach [facility] MEDICINE [address] [place] [address] Malissa Sweet DO Pre-visit Planning (SDOH screening positive tobacco screening negative) 08/17/2024 Refill [facility] MEDICINE [address] [place] [address] Malissa Sweet DO 08/16/2024 Refill [facility] MEDICINE [address] [place] [address] Malissa Sweet DO from Last 3 Months [...] your housing situation today? I have brayan rizwan 01/09/[address] you li [...] Description 12/06/2024 10:30 AM EDT Medication Management [facility] MEDICINE [address] [place] [address] Stephani Sepulveda, PharmD [address] [place] [address] 01/20/2025 10:00 AM EDT Office Visit [facility] OPTOMETRY [address] [place] [address] Jennifer Roach, OD [address] [place] [address] 02/04/2025 9:45 AM EDT Office Visit [facility] MEDICINE [address] [place] [address] Dylan Saldaña MD [address] [place] [address] Health Maintenance Due Date Last Done Comments Diabetes: Foot Exam 1991 Family Planning (PISQ) 02/10/1996 COVID-19 Vaccine ( season) 2024 07/20/2021, 11/23/2020, 11/02/2020 Influenza Vaccine (#1) 2024 3, 10/11/2022, 04/03/2021 Eye Exam 07/18/2024 07/18/2022, 07/07, 07/18/2022, Additional history exists Mammogram 11/28/2024 11/28/2022, 11/28/2022 Depression Screening 01/08/2025 01/09/2024, 01/09/20 Diabetes: Hemoglobin A1C 04/30/2025 025, 09/06/2024, 08/26/2024, Additional history exists SDOH Screening 08/27/2025 08/27/2024 Alcohol/Substance Use Screening 09/06/2025 09/06/2024 Tobacco Screening 09/06/2025 09/06/2024 Diabetes: Urine Protein Screening 10/29/2025 10/29/2024, 02/20/2024, 02/20/2023, Additional history exists Lipid Panel 10/29/2025 10/29/2024, 02/04, 02/20/2023, Additional history exists Cervical Cancer Screening 03/21/2026 Pap Smear 03/21/2026 03/21/2023 HPV/Cotest 03/21/2028 03/21/2023 DTaP/Tdap/Td Vaccines (2 - Td or Tdap) 12/21/2030 12/21/2020 Zoster Vaccines (1 of 2) 2031 RSV Patients and Patients Aged 60 years or older (1 - 1-dose 75+ series) 02/10/2056 Pneumococcal Vaccine: Pediatrics (0 to 5 Years) and At-Risk Patients (6 to 49) Years) Completed 03/21/2023, 02/02/2021 Hepatitis A Vaccines Completed 02/20/2024, 01/23/20 Hepatitis B Vaccines Completed 02/20/2024, 03/21/2023, 01/22/2023 HIV Screening Completed 10/29/2024, 02/04, 02/20/2023, Additional history exists Hepatitis C Screening Completed 10/29/2024 , 02/20/2024, 02/20/2023, Additional history exists HIB Vaccines Aged Out [...] per day Blood Pressure No Stephani Sepulveda PharmD Blood Pressure < 140/90 Blood Pressure 134/70(2024 10:46 AM EST) No Stephani Sepulveda PharmD Record your blood sugar as directed Result Component No Stephani Sepulveda PharmD Note: Use CGM, ensuring sensor is scanned at least once every 8 hours to capture 24H data. Check BG manually, as directed. Hemoglobin A1c < 7 Result Component 6.2( 11:52 AM EDT) No Stephani Sepulveda PharmD Procedures Procedure Name Priority Date/Time Associated Diagnosis Comments HEPATITIS C AB W/REFL TO HCV RNA, QN, PCR Routine 10/29/2024 11:52 AM EDT Type 2 diabetes mellitus without complication, without long-term current use of insulin (CMS/HCC) Essential hypertension Other hyperlipidemia Fatty liver Anxiety Irritable bowel syndrome with constipation and diarrhea Renal cyst Heartburn Other insomnia Sleep-disordered breathing Hyperpigmented skin lesion Skin nodule Intertrigo Healthcare maintenance Encounter for screening mammogram for malignant neoplasm of breast HIV 1/2 ANTIGEN/ANTIBODY, FOURTH GENERATION W/RFL Routine 10/29/2024 11:52 AM EDT Type 2 diabetes mellitus without complication, without long-term current use of insulin (CMS/HCC) Essential hypertension Other hyperlipidemia Fatty liver Anxiety Irritable bowel syndrome with constipation and diarrhea Renal cyst Heartburn Other insomnia Sleep-disordered breathing Hyperpigmented skin lesion Skin nodule Intertrigo Healthcare maintenance Encounter for screening mammogram for malignant neoplasm of breast HEPATITIS B SURFACE ANTIGEN, EIA Routine 10/29/2024 11:52 AM EDT Type 2 diabetes mellitus without complication, without long-term current use of insulin (CMS/HCC) Essential hypertension Other hyperlipidemia Fatty liver Anxiety Irritable bowel syndrome with constipation and diarrhea Renal cyst Heartburn Other insomnia Sleep-disordered breathing Hyperpigmented skin lesion Skin nodule Intertrigo Healthcare maintenance Encounter for screening mammogram for malignant neoplasm of breast ALBUMIN, RANDOM URINE W/CREATININE Routine 10/29/2024 11:52 AM EDT Type 2 diabetes mellitus without complication, without long-term current use of insulin (CMS/HCC) Essential hypertension Other hyperlipidemia Fatty liver Anxiety Irritable bowel syndrome with constipation and diarrhea Renal cyst Heartburn Other insomnia Sleep-disordered breathing Hyperpigmented skin lesion Skin nodule Intertrigo Healthcare maintenance Encounter for screening mammogram for malignant neoplasm of breast CBC Routine 10/29/2024 11:52 AM EDT Type 2 diabetes mellitus without complication, without long-term current use of insulin (CMS/HCC) Essential hypertension Other hyperlipidemia Fatty liver Anxiety Irritable bowel syndrome with constipation and diarrhea Renal cyst Heartburn Other insomnia Sleep-disordered breathing Hyperpigmented skin lesion Skin nodule Intertrigo Healthcare maintenance Encounter for screening mammogram for malignant neoplasm of breast TSH Routine 10/29/2024 11:52 AM EDT Type 2 diabetes mellitus without complication, without long-term current use of insulin (CMS/HCC) Essential hypertension Other hyperlipidemia Fatty liver Anxiety Irritable bowel syndrome with constipation and diarrhea Renal cyst Heartburn Other insomnia Sleep-disordered breathing Hyperpigmented skin lesion Skin nodule Intertrigo Healthcare maintenance Encounter for screening mammogram for malignant neoplasm of breast LIPID PANEL, STANDARD Routine 10/29/2024 11:52 AM EDT Type 2 diabetes mellitus without complication, without long-term current use of insulin (CMS/HCC) Essential hypertension Other hyperlipidemia Fatty liver Anxiety Irritable bowel syndrome with constipation and diarrhea Renal cyst Heartburn Other insomnia Sleep-disordered breathing Hyperpigmented skin lesion Skin nodule Intertrigo Healthcare maintenance Encounter for screening mammogram for malignant neoplasm of breast VITAMIN D,25-OH,TOTAL,IA Routine 10/29/2024 11:52 AM EDT Type 2 diabetes mellitus without complication, without long-term current use of insulin (CMS/HCC) Essential hypertension Other hyperlipidemia Fatty liver Anxiety Irritable bowel syndrome with constipation and diarrhea Renal cyst Heartburn Other insomnia Sleep-disordered breathing Hyperpigmented skin lesion Skin nodule Intertrigo Healthcare maintenance Encounter for screening mammogram for malignant neoplasm of breast T4, FREE Routine 10/29/2024 11:52 AM EDT Type 2 diabetes mellitus without complication, without long-term current use of insulin (CMS/HCC) Essential hypertension Other hyperlipidemia Fatty liver Anxiety Irritable bowel syndrome with constipation and diarrhea Renal cyst Heartburn Other insomnia Sleep-disordered breathing Hyperpigmented skin lesion Skin nodule Intertrigo Healthcare maintenance Encounter for screening mammogram for malignant neoplasm of breast ALPHA FETOPROTEIN, TUMOR MARKER Routine 10/29/2024 11:52 AM EDT Type 2 diabetes mellitus without complication, without long-term current use of insulin (CMS/HCC) Essential hypertension Other hyperlipidemia Fatty liver Anxiety Irritable bowel syndrome with constipation and diarrhea Renal cyst Palpitations Heartburn Acute right ankle pain Cracked skin on feet Healthcare maintenance HEPATITIS B CORE AB TOTAL Routine 10/29/2024 11:52 AM EDT Type 2 diabetes mellitus without complication, without long-term current use of insulin (CMS/HCC) Essential hypertension Other hyperlipidemia Fatty liver Anxiety Irritable bowel syndrome with constipation and diarrhea Renal cyst Palpitations Heartburn Acute right ankle pain Cracked skin on feet Healthcare maintenance HEPATITIS A ANTIBODY, TOTAL Routine 10/29/2024 11:52 AM EDT Type 2 diabetes mellitus without complication, without long-term current use of insulin (CMS/HCC) Essential hypertension Other hyperlipidemia Fatty liver Anxiety Irritable bowel syndrome with constipation and diarrhea Renal cyst Palpitations Heartburn Acute right ankle pain Cracked skin on feet Healthcare maintenance HEPATITIS B SURFACE ANTIBODY, QUALITATIVE Routine 10/29/2024 11:52 AM EDT Type 2 diabetes mellitus without complication, without long-term current use of insulin (CMS/HCC) Essential hypertension Other hyperlipidemia Fatty liver Anxiety Irritable bowel syndrome with constipation and diarrhea Renal cyst Palpitations Heartburn Acute right ankle pain Cracked skin on feet Healthcare maintenance RPR (MONITOR) W/REFL TITER Routine 10/29/2024 11:52 AM EDT Type 2 diabetes mellitus without complication, without long-term current use of insulin ([facility]/HCC) Essential hypertension Other hyperlipidemia Fatty liver Anxiety Irritable bowel syndrome with constipation and diarrhea Renal cyst Palpitations Heartburn Acute right ankle pain Cracked skin on feet Healthcare maintenance BASIC METABOLIC PANEL Routine 10/29/2024 11:52 AM EDT Type 2 diabetes mellitus without complication, without long-term current use of insulin ([facility]/HCC) Essential hypertension Other hyperlipidemia Fatty liver Anxiety Irritable bowel syndrome with constipation and diarrhea Renal cyst Palpitations Heartburn Acute right ankle pain Cracked skin on feet Healthcare maintenance HEMOGLOBIN A1C Routine 10/29/2024 11:52 AM EDT Type 2 diabetes mellitus without complication, without long-term current use of insulin ([facility]/HCC) Essential hypertension Other hyperlipidemia Fatty liver Anxiety Irritable bowel syndrome with constipation and diarrhea Renal cyst Palpitations Heartburn Acute right ankle pain Cracked skin on feet Healthcare maintenance HEPATIC FUNCTION PANEL Routine 10/29/2024 11:52 AM EDT Type 2 diabetes mellitus without complication, without long-term current use of insulin ([facility]) Essential hypertension Other hyperlipidemia Fatty liver Anxiety Irritable bowel syndrome with constipation and diarrhea Renal cyst Palpitations Heartburn Acute right ankle pain Cracked skin on feet Healthcare maintenance CHLAMYDIA/N. GONORRHOEAE RNA, TMA, UROGENITAL Routine 10/29/2024 11:52 AM EDT Type 2 diabetes mellitus without complication, without long-term current use of insulin ([facility]/HCC) Essential hypertension Other hyperlipidemia Fatty liver Anxiety Irritable bowel syndrome with constipation and diarrhea Renal cyst Palpitations Heartburn Acute right ankle pain Cracked skin on feet Healthcare maintenance POCT GLYCATED HEMOGLOBIN, TOTAL Routine 09/06/2024 10:50 AM EST Type 2 diabetes mellitus without complication, without long-term current use of insulin ([facility]) POCT GLUCOSE Routine 09/06/2024 10:50 AM EST Type 2 diabetes mellitus without complication, without long-term current use of insulin ([facility]) POCT GLYCATED HEMOGLOBIN, TOTAL Routine 08/26/2024 12:07 PM EST Type 2 diabetes mellitus without complication, without long-term current use of insulin ([facility]) HPV MRNA E6/E7 REFLEX TO HPV 16, 18/45 Routine 03/21/2023 12:49 PM EDT PAP SMEAR Routine 03/21/2023 12:49 PM EDT BI MAMMOGRAM SCREENING TOMOSYNTHESIS BILATERAL Routine 11/28/2022 11:00 AM EDT from Last 3 Months or Most Recently Relevant to Health Maintenance Results * (ABNORMAL) Vitamin D, 25-Hydroxy, Total, Immunoassay (10/29/2024 11:52 AM EDT) Vitamin D 25-OH Total 24.8(L) >30 ng/mL [facility] Comment: Health Based Reference Values*< 20 ??ng/mL ??[id number] ng/mL ??Insufficient> 30 ??ng/mL ??Sufficient*Reba CREWS. N Engl J Med. 2007;357:266-280There is no well-established upper level of normal vitamin Dlevels. Some laboratories use 50 ng/mL as an upper limit ofnormal. However, toxicity is patient-dependent and may occurat any level. Careful correlation with the patient'spresentation is necessary and, if there is concern forvitamin D toxicity, treatment should be consideredirrespective of the serum level.Care must be taken in interpreting Vitamin D results fromdifferent laboratories and methodologies. ??Published datademonstrated that results from patients undergoinghemodialysis may show a negative bias when tested withvarious automated 25-OH vitamin D assays when compared toLC- MS/MS.When testing samples from patients whose predominant form ofVitamin D is Vitamin D2, such as patients receiving VitaminD2 supplementation, results that are subtherapeutic shouldbe confirmed with another method such as LC-MS/MS. Blood Venous blood specimen / Unknown 10/29/2024 11:52 AM EDT 10/29/2024 1:06 PM EDT Malissa Micki DO LAB BLOOD ORDERABLES Final R esult Performing Organization Address City/[facility]/ZIP Co de Phone Number [facility] [address] [place] [phone] * Albumin, Random Urine W/Creatinine (10/29/2024 11:52 AM EDT) Creatinine, Urine 244.76 mg/dL [facility] Microalbumin Urine 16.0 mg/L [facility] Microalbum Creatinine Ratio Ur 6.5 <30 ug/mg cr [facility] Comment:Albumin/Creatinine R atio Reference Ranges: Normal: < 30 ug/mg creatinine Microalbuminuria: 30 - 300 ug/mg creatinineClinical Albuminuria: > 300 ug/mg creatinine Urine (Urine, Random) 10/29/2024 11:52 AM EDT 10/29/2024 1:01 PM EDT Malissa Sweet DO LAB URINE ORDERABLES Final R esult Performing Organization Address [facility] Co de Phone Number [facility] [address] [place] [phone] * Hepatitis C Antibody with Reflex to HCV, RNA, Quantitative, Real-Time PCR (10/29/2024 11:52 AM EDT) Hepatitis C Antibody Nonreactive Nonreactive [facility] Comment:Antibodies to HCV no t detected; does not exclude early acuteHCV infection. Blood Venous blood specimen / Unknown 10/29/2024 11:52 AM EDT 10/29/2024 12:57 PM EDT Malissa Micki DO LAB BLOOD ORDERABLES Final R esult Performing Organization Address [facility] Co de Phone Number [facility] [address] [place] [phone] * Hepatitis A Antibody, Total (10/29/2024 11:52 AM EDT) [facility] Hepatitis A Antibody IgG REACTIVE Nonreactive [facility] Comment:The presence of IgG anti-HAV implies past HAV infection(recent or distant) or vaccination against HAV. Blood Venous blood specimen / Unknown 10/29/2024 11:52 AM EDT 10/29/2024 12:57 PM EDT Malissa Sweet DO LAB BLOOD ORDERABLES Final R esult Performing Organization Address [facility]/ZIP Co de Phone Number [facility] [address] [place] [phone] * Alpha-Fetoprotein, Tumor Marker (10/29/2024 11:52 AM EDT) [facility] Alpha Fetoprotein 1.7 ng/mL [facility] Comment:Reference Range: <6. 1The use of AFP as a tumor marker in females is not recommended.This test was performed using the Kaity Coulterchemiluminescent method. Values obtained fromdifferent assay methods cannot be usedinterchangeably. AFP levels, regardless ofvalue, should not be interpreted as absoluteevidence of the presence or absence of disease.THIS TEST WAS PERFORMED AT:[facility] [place] [phone] PORTILLO MD Blood Venous blood specimen / Unknown 10/29/2024 11:52 AM EDT 10/29/2024 12:57 PM EDT us Malissa Sweet DO LAB BLOOD ORDERABLES Final R esult Performing Organization Address [facility] Co de Phone Number [facility] [address] [place] [phone] * Chlamydia/N. Gonorrhoeae RNA, TMA, Urogenitial (10/29/2024 11:52 AM EDT) [facility] CT PCR NOT DETECTED Not Detect. [facility] Comment:A not detected test result does not exclude the possibilityof infection because test results can be affected byimproper specimen collection, concurrent antibiotic therapy,or the number of organisms in the specimen which may bebelow the sensitivity of the test. As with many diagnostictests, results from the Xpert CT/NG assay should beinterpreted in conjunction with other laboratory andclinical data available to the clinician.Xpert CT/NG performance has not been evaluated in patientsless than 14 years of age. The assay should not be used forthe evaluationof suspected sexual abuse or for other medico-legalindications. Additional testing is recommended in anycircumstance when false positive or false negative resultscould lead to adverse medical, social or psychologicalconsequences. NG PCR NOT DETECTED Not Detect. [facility] Comment:A not detected test result does not exclude the possibilityof infection because test results can be affected byimproper specimen collection, concurrent antibiotic therapy,or the number of organisms in the specimen which may bebelow the sensitivity of the test. As with many diagnostictests, results from the Xpert CT/NG assay should beinterpreted in conjunction with other laboratory andclinical data available to the clinician.Xpert CT/NG performance has not been evaluated in patientsless than 14 years of age. The assay should not be used forthe evaluationof suspected sexual abuse or for other medico-legalindications. Additional testing is recommended in anycircumstance when false positive or false negative resultscould lead to adverse medical, social or psychologicalconsequences. Urine Urethral structure / Unknown 10/29/2024 11:52 AM EDT 10/29/2024 1:01 PM EDT Narrative [facility] - 10/29/2024 2:47 PM EDT Urine us Malissa Sweet DO LAB MICROBIOLOGY - GENERAL O RDERABLES Final Result [facility] [address] [place] [phone] * Hepatitis B surface antigen, EIA (10/29/2024 11:52 AM EDT) Hepatitis B Surface Ag Negative Negative [facility] Blood Venous blood specimen / Unknown 10/29/2024 11:52 AM EDT 10/29/2024 12:57 PM EDT Malissa Sweet DO LAB BLOOD ORDERABLES Final R esult Performing Organization Address City/[facility]/ZIP Co de Phone Number [facility] [address] [place] [phone] * Hepatitis B Core Antibody, Total (10/29/2024 11:52 AM EDT) Hepatitis B Core Antibody Nonreactive Nonreactive [facility] Blood Venous blood specimen / Unknown 10/29/2024 11:52 AM EDT 10/29/2024 12:57 PM EDT Malissa Sweet DO LAB BLOOD ORDERABLES Final R esult Performing Organization Address [facility] de Phone Number [facility] [address] [place] [phone] * RPR (Monitor) with Reflex to??Titer (10/29/2024 11:52 AM EDT) RPR (Monitor) w/Refl Titer NON-REACTI VE NON-REACT ITZEL [facility] Comment:THIS TEST WAS PERFOR MED AT:[facility] [address] [id number] PORTILLO MD Rapid Plasma Reagin Ab Titer TNP [facility] Blood Venous blood specimen / Unknown 10/29/2024 11:52 AM EDT 10/29/2024 1:06 PM EDT Malissa Sweet DO LAB BLOOD ORDERABLES Final R esult Performing Organization Address [facility] Co de Phone Number [facility] [address] [place] [phone] * HIV-1/2 Antigen and Antibodies, Fourth Generation, with Reflexes (10/29/2024 11:52 AM EDT) [facility] HIV AB/AG Nonreactive Nonreactive [facility] Comment:HIV-1 p24 Ag and/or HIV-1/HIV-2 Ab not detected.A test result that is nonreactive does not exclude thepossibility of exposure to or infection with HIV-1 and/orHIV-2. Nonreactive results in this assay for individualswith prior exposure to HIV-1 and/or HIV-2 may be due toantigen and antibody levels that are below the limit ofdetection of this assay.The [email or web address] HIV Ag/Ab Combo assay result andsupplemental assay results should be interpreted inconjunction with the patient's clinical presentation,history and other laboratory results. If the results areinconsistent with clinical evidence, additional testing issuggested to confirm the result. Blood Venous blood specimen / Unknown 10/29/2024 11:52 AM EDT 10/29/2024 12:57 PM EDT Malissa Sweet DO LAB BLOOD ORDERABLES Final R esult Performing Organization Address City/[facility]/ZIP Co de Phone Number [facility] [address] [place] [phone] * Hepatitis B Surface Antibody, Qualitative (10/29/2024 11:52 AM EDT) [facility] ~Hepatitis B Surface Antibody REACTIVE Nonreactive [facility] Comment:REACTIVE: > 11.99 mI U/mL Blood Venous blood specimen / Unknown 10/29/2024 11:52 AM EDT 10/29/2024 12:57 PM EDT Malissa Sweet [facility] LAB BLOOD ORDERABLES Final R esult [facility] [address] [place] [phone] * (ABNORMAL) CBC (10/29/2024 11:52 AM EDT) White Blood Count 10.8 4.8 - 10.8 X10*3/uL [facility] Red Blood Count 4.41 4.20 - 5.50 X10*6/uL [facility] Hemoglobin 10.8(L) 12.0 - 16.0 g/dl [facility] Hematocrit 35.1(L) 37.0 - 47.0 % [facility] Mean Corpuscular Volume 79.6(L) 80.0 - 98.0 fL [facility] Mean Corpuscular Hemoglobin 24.5(L) 27.0 - 33.0 pg [facility] Mean Corpuscular HGB Conc 30.8(L) 31.0 - 35.0 g/dl [facility] Red Cell Distribution Width 15.5 11.0 - 16.0 % [facility] Platelet Count 308 160 - 400 X10*3/uL [facility] Mean Platelet Volume 9.9 9.4 - 12.3 fL [facility] NRBC Pct Auto 0.0 0.0 - 0.2 /100WBC [facility] NRBC Abs Auto 0.000 0.0 - 0.012 X10*3/uL [facility] Blood Venous blood specimen / Unknown 10/29/2024 11:52 AM EDT 10/29/2024 1:06 PM EDT us Malissa Sweet DO LAB BLOOD ORDERABLES Final R esult [facility] [address] [place] [phone] * TSH (10/29/2024 11:52 AM EDT) Pathologist [facility] Thyroid Stimulating Hormone 1.13 0.32 - 4.0 uIU/mL [facility] Comment:TSH 3rd Generation ( [facility]) Blood Venous blood specimen / Unknown 10/29/2024 11:52 AM EDT 10/29/2024 1:06 PM EDT Malissa Sweet LAB BLOOD ORDERABLES Final R esult Performing Organization Address City/[facility] Co de Phone Number [facility] [address] [place] [phone] * T4, Free (10/29/2024 11:52 AM EDT) Free T4 (Free Thyroxine) 1.01 0.71 - 1.85 ng/dL [facility] Blood Venous blood specimen / Unknown 10/29/2024 11:52 AM EDT 10/29/2024 1:06 PM EDT Malissa Sweet LAB BLOOD ORDERABLES Final R esult Performing Organization Address [facility] Phone Number [facility] [address] [place] [address] [phone] * (ABNORMAL) Hemoglobin A1c (10/29/2024 11:52 AM EDT) Hemoglobin A1c 6.2(H) <6.0 % [facility] Comment:Hemoglobin A1C Refer ence Range Adults: 4.8 - 6.0 % Non diabetic: < 6.0 % Goal: < 7.0 %Additional Action Suggested: > 8.0 %Note: Hemoglobin A1c results are invalid for patients with abnormal amounts of HbF. Blood transfusions may impact the HbA1c concentration in the patient sample. Estimated Average Glucose 131 mg/dL [facility] Comment:eAG = Estimated ave rage glucose which is %A1C expressed asaverage glucose, using the formula of the N9H-FpehzzcOcqgexv Glucose study (ADAG), Diabetes Care, Vol.31,#8,2007 Blood Venous blood specimen / Unknown 10/29/2024 11:52 AM EDT 10/29/2024 1:06 PM EDT Malissa Sweet DO LAB BLOOD ORDERABLES Final R esult Performing Organization Address [facility] Co de Phone Number [facility] [address] [place] [phone] * Hepatic Function Panel (10/29/2024 11:52 AM EDT) Bilirubin, Total 0.3 0.0 - 1.0 mg/dL [facility] Bilirubin, Direct 0.1 0.0 - 0.5 mg/dL [facility] Aspartate Amino Transferase 18 5 - 31 U/L [facility] Alanine Aminotransferase 13 0 - 31 U/L [facility] Total Protein 7.4 6.5 - 8.0 g/dL [facility] Albumin Level 3.9 3.5 - 5.0 g/dL [facility] Alkaline Phosphatase 93 39 - 117 U/L [facility] Blood Venous blood specimen / Unknown 10/29/2024 11:52 AM EDT 10/29/2024 1:06 PM EDT Malissa Sweet DO LAB BLOOD ORDERABLES Final R esult [facility] [address] [place] [phone] * Lipid Panel, Standard (10/29/2024 11:52 AM EDT) Pathologist [facility] Triglycerides 94 <150 mg/dL [facility] Comment:Desirable Triglyceri de: less than 150 mg/dLBorderline High Triglyceride 150-199 mg/dLHigh Triglyceride: 200-499 mg/dLVery High Triglyceride: greater than or equal to 5OO mg/dL Cholesterol 163 <200 mg/dL [facility] Comment:Desirable Cholestero l: less than 200 mg/dLBorderline High Cholesterol: 200-239 mg/dLHigh Cholesterol: greater than 239 mg/dL LDL Cholesterol Calculated 89 <100 mg/dL [facility] Comment:Desirable LDL: less than 100 mg/dLNear Optimal/Above Optimal LDL: 110- 129 mg/dLBorderline High LDL: 130-159 mg/dLHigh LDL: 160-189 mg/dLVery High LDL: greater than or equal to 190 mg/dL HDL Cholesterol 56 >40 mg/dL [facility] Comment:Desirable HDL: great er than 40 mg/dL Note: This HDL assay may give artificially low results in patients with liver disease. Blood Venous blood specimen / Unknown 10/29/2024 11:52 AM EDT 10/29/2024 1:06 PM EDT Malissa Sweet DO LAB BLOOD ORDERABLES Final R esult Performing Organization Address [facility] Co de Phone Number [facility] [address] [place] [address] [phone] * (ABNORMAL) Basic Metabolic Panel (10/29/2024 11:52 AM EDT) Sodium 138 135 - 145 mmol/L [facility] Potassium 4.0 3.3 - 5.1 mmol/L [facility] Chloride 106 96 - 108 mmol/L [facility] Carbon Dioxide 26 22 - 29 mmol/L [facility] Anion Gap 10(L) 12 - 20 [facility] Urea Nitrogen (BUN) 8(L) 9 - 16 mg/dL [facility] Creatinine, Serum 0.60 0.5 - 1.4 mg/dL [facility] Estimated Glomerular Filt Rate >60 [facility] Comment:Chronic Kidney Disea se: Estimated GFR < 60 mL/min/1.49w6Fyrgpq Kidney Disease: Estimated GFR < 15 mL/min/1.73m2 Glucose 122(H) 60 - 115 mg/dL [facility] Calcium 8.9 8.4 - 10.2 mg/dL [facility] Blood Venous blood specimen / Unknown 10/29/2024 11:52 AM EDT 10/29/2024 1:06 PM EDT Malissa Sweet DO LAB BLOOD ORDERABLES Final R esult Performing Organization Address [facility]/ZIP Co de Phone Number [facility] [address] [place] [phone] * (ABNORMAL) POCT HGB A1C (09/06/2024 10:50 AM EST) Only the most recent of2 resultswithin the time period is included. Pathologist [facility] Hemoglobin A1C 6.8(A) 4.0 - 6.0 % QC Media Lot # [id number] Lot# Expiration Date Blood 09/06/2024 10:5 0 AM EST Malissa [facility] POINT OF CARE TEST ENTER/TEOFILO T ORDERABLES Final Result * (ABNORMAL) POCT Glucose (09/06/2024 10:50 AM EST) [facility] Glucose Blood, POC 251(A) 60 - 200 mg/dL QC Media Lot # [id number] Lot# Expiration Date 257 Blood Capillary blood specimen / Unknown 09/06/2024 10:50 AM EST [facility] [employer]ign[facility] DO POINT OF CARE TEST ENTER/TEOFILO T ORDERABLES Final Result * HPV mRNA E6/E7 w/Reflex to HPV Genotypes 16, 18/45 (03/21/2023 12:49 PM EDT) [facility] HPV nRNA E6/E7 Not Detected Not Detected [facility] Comment:Methodology: Transcr iption-Mediated AmplificationThis assay detects E6/E7 viral messenger RNA (mRNA) from 14high-risk HPV types (16,18,31,33,35,39,45,51,52,56,58,59,66,68).Cervical sources are required for HPV testing.If a vaginal source from a patient who has had atotal hysterectomy with removal of cervix wassubmitted, please contact the testing laboratoryfor alternative testing options.For additional information, please refer tohttp://education.[employer]faq/NKT965q7(This link if provided for information/educational purposes only.)THIS TEST WAS PERFORMED AT:[facility] [place] [phone] PORTILLO MD HPV mRNA E6/E7 TNP [facility] HPV 16 RNA TNP [facility] HPV 18/45 RNA TNP [facility] 03/21/2023 12:4 9 PM EDT 03/24/2023 9:30 AM EDT us Malissa Sweet DO LAB CYTOLOGY ORDERABLES Renetta encarnacion Result [facility] [address] [place] [phone] * Pap Smear (03/21/2023 12:49 PM EDT) 03/21/2023 12:4 9 PM EDT 03/24/2023 9:30 AM EDT Narrative [facility] - 04/01/2023 1:59 PM EDT ----- ------- Name: Mellisa,Antonietta ?Age/Sex: 43/F ? : 1980 Unit#: [id number] ?? Attend Dr: Malissa Sweet DO ?Re03/21/23 ?Status: DEP REF ? Location: HO.HHCLNP ? Disch: ? ----- ------- SPEC : [id number] ?RECD: 03/24/23 ? STATUS: ??SOUT ? REQ NUM: [id number] ? LO: 03/21/23-1248 ? SUBM DR: Malissa Sweet DO ? ENTERED: ??03/24/23-1151 ?SP TYPE: Pap Smr ?OTHR : ? ORDERED: ??Pap Smear ? Interpretation ?? Satisfactory for evaluation. ?? Negative for intraepithelial lesion or malignancy. ? HPV mRNA E6/E7: ?NOT DETECTED ? This assay detects E6/E7 viral messenger RNA (mRNA) from 14 high-risk HPV types (16, 18, ?? 31, 33, 35, 39, 45, 51, 52, 56, 58, 59, 66, 68) ? HPV testing performed by [employer] [place], [place]. ??See reference laboratory ?? portion of the EMR for entire report. ?Clinical Information LMP: 03/14/23 Previous PAP test: Unknown date/findings ? Material Received ?? ThinPrep-Vaginal/Cervical ----- ------- Signed (signature on file) Emili Rivka Rendon 04/01/23 1359 ? ----- ------- ? END OF REPORT ? us Malissa Sweet DO LAB CYTOLOGY ORDERABLES Renetta encarnacion Result Performing Organization Address [facility]/State/ZIP Co de Phone Number [facility] [address] [place] [phone] * BI Mammogram Screening Tomosynthesis Bilateral (11/28/2022 11:00 AM EDT) Anatomical Region Laterality Modality Breast Bilateral Mammography 11/28/2022 11:0 0 AM EDT Narrative 12/01/2022 11:52 AM EDT ? [facility] ? [address] ?[place] [address] ? Mammography Report ? Signed ? Patient: Pak,Antonietta ?MR#: [id number] ?? [id number] ? : 1980 ?Acct:[id number] ? Age/Sex: 42 / F ?ADM Date: 05/25/23 ? Loc: HO.MAMMO ? Attending Dr: Malissa Sweet DO ? Ordering Physician: Malissa Sweet DO ?Results: 2B ?? enign Findings ? Date of Service: 11/28/22 ?Follow Up: 1 Year From Orig ?? inal Mammogram ? Procedure(s): MM tomosynthesis screening BI ?? Accession Number(s): [id number] ? cc: Malissa Sweet DO ? EXAMINATION: [...] 1149 ? DD/ 1100 ? TD/TT: ? Gas Torch [place]razier: GROSS ? Procedure Note Donestuardoter, Image - 01/02/2023 [facility] [address], [place] [address] Mammography Report Signed Patient: Mary Pak#: [id number] : 1980Acct:[id number] Age/Sex: 42 / FADM Date: 11/28/22 Loc: HO.MAMMO Attending Dr: Malissa Sweet DO Ordering Physician: Malissa Sweetults: 2B enign Findings Date of Service: 11/28/22Follow Up: 1 Year From Orig inal Mammogram Procedure(s): MM tomosynthesis screening BI Accession Number(s): [id number] cc: Malissa Sweet DO EXAMINATION: MM SCREENING [...] in OV> 12/01/22 1149 DD/ 1100 TD/TT: Gas Torch [place]: RENATO [facility] External Provider IMG BI PROCEDURES Edited Result - Final from Last 3 Months or Most Recently Relevant to Health Maintenance Insurance [employer] C3 Care Teams Inverted Block Operator Relationship Specialty Start Date End Date Malissa Sweet DO [address] [place] [phone] PCP - General Family Medicine 12/21/20
== END 2024-11-11 09:45 | disposition home or self-care (01) ==
LOC: HO.MAMMO 09:44
PROVIDERS: PCP Family Medicine; Visit Provider Family Medicine
DX: Z12.31 Encounter for screening mammogram for malignant neoplasm of breast (principal)
CPT/HCPCS: 77063; 77067

== ENCOUNTER → 2024-11-11 10:00 | Outpatient (BNV) | payer MEDICAID, SELFPAY | PROVIDERS: PCP Family Medicine; Visit Provider Internal Medicine | DX: Z12.31 Encounter for screening mammogram for malignant neoplasm of breast (principal) | CPT/HCPCS: 77063; 77067 ==

== ENCOUNTER → 2024-12-30 09:48 | Outpatient (REF) | payer MEDICAID, SELFPAY ==
--- OUTSIDE RECORDS SUMMARY | 2024-12-30 11:05 | XMS_ITS | Encounter Summary ---
Author Organization [employer] Address [address] [facility] 7 [place] [address] Care Team Providers Care Milk Sampler Name Role Phone Malissa Sweet DO Primary Care Provider [phone] Stephani Sepulveda PharmD Unavailable [phone] Reason for Visit * Reason Onset Date Comments OV 08/06/23 08/06/2023 Encounter Details Date Type Department Care Team (Late st Contact Info) Description 08/06/2023 Telephone [facility] [address] [place], [place] [phone] Malissa Sweet DO [address] [place], [place] [phone] OV 08/06/23 Social History Tobacco Use Types [...] with pcp 08/06/23. Please contact pt at [phone]. documented in this encounter Plan of Treatment Upcoming Encounters Date Type Department Care Team (Late st Contact Info) Description 01/04/2025 11:00 AM EDT Medication Management [facility] [address] [place] [phone] Stephani Sepulveda, GraceD [address] [place] [address] 01/20/2025 10:00 AM EDT Office Visit [facility] [address] [place] [address] Jennifer Roach OD [address] [place] [address] 03/04/2025 9:45 AM EDT Office Visit [facility] [address] [place] [address] Dylan Saldaña MD [address] [place] [address] documented as of this encounter Goals Goal Patient Goal Type Associated Problems Recent Progress Patient-Stated? Author Record your blood pressure once per day Blood Pressure No Stephani Sepulvead PharmD Blood Pressure < 140/90 Blood Pressure 134/70(2024 10:46 AM EST) No Stephani Sepulveda PharmD Record your blood sugar as directed Result Component No Stephani Sepulveda PharmD Note: Use CGM, ensuring sensor is scanned at least once every 8 hours to capture 24H data. Check BG manually, as directed. Hemoglobin A1c < 7 Result Component 6.2( 11:52 AM EDT) No Stephani Sepulveda PharmD documented as of this encounter Visit Diagnoses Not on filedocumented in this encounter Additional Health Concerns Assessment Noted Time PHQ-9 Depression Total Score: 1 10/12/19 10:27 AM EDT documented as of this encounter Care Teams Milk Sampler Relationship Specialty Start Date End Date Malissa Sweet DO [address] [place] [address] PCP - General Family Medicine 12/21/20 Stephani Sepulveda PharmD [address] [place] [address] Pharmacist Internal Medicine 01/24/23 09/29/24 documented as of this encounter
== END ==
LOC: HO.SL 09:48
PROVIDERS: PCP Family Medicine; Visit Provider Family Medicine
DX: G47.33 Obstructive sleep apnea (adult) (pediatric) (principal); G47.30 Sleep apnea, unspecified
CPT/HCPCS: 95806

== ENCOUNTER → 2024-12-30 19:00 | Outpatient (BNV) | payer MEDICAID, SELFPAY | PROVIDERS: PCP Family Medicine; Visit Provider Internal Medicine | DX: G47.33 Obstructive sleep apnea (adult) (pediatric) (principal) | CPT/HCPCS: 95806 ==

== ENCOUNTER 2025-04-05 10:55 | Outpatient (REF) | payer MEDICAID, SELFPAY ==
--- OUTSIDE RECORDS SUMMARY | 2025-04-05 10:00 | XMS_ITS | Encounter Summary ---
Author Organization [employer] Address [address] [facility] 7 [place] [address] Care Team Providers Care Diesel Engine Fitter Name Role Phone Malissa Sweet DO Primary Care Provider + [phone] Reason for Visit * Reason Comments Follow-up Encounter Details Date Type Department Care Team (Late st Contact Info) Description 04/05/2025 10:00 AM EDT Office Visit [facility] [address], [place] [phone] Malissa Sweet DO [address] [place], [place] [phone] Type 2 diabetes mellitus without complication, with long-term current use of insulin ([facility]) (Primary Dx); Essential hypertension; Other hyperlipidemia; Fatty liver; Anxiety; Irritable bowel syndrome with constipation and diarrhea; Renal cyst; Heartburn; Other insomnia; Sleep-disordered breathing; Hyperpigmented skin lesion; Skin nodule; Intertrigo; Finger pain, left; Healthcare maintenance; Dietary counseling; Exercise counseling Social History Tobacco Use Types Packs/Day Years Used Date Smoking Tobacco: Former Cigarettes Smokeless Tobacco: Former Comments:10 years ago Alcohol Use Standard Drinks/Week Comments Never 0 (1 standard drink = 0.6 oz pur e alcohol) Depression Answer Date Recorded Patient Health Questionnaire-9 Score 4 04/05/2025 Patient Health Questionnaire-9 Score 4 04/05/2025 Last PHQ-9: Questionnaire Data Not on file 0 04/05/2025 Housing Stability Answer Date Recorded What is [...] Date Recorded Patient Health Questionnaire-2 Score 1 04/05/2025 Internet Access Answer Date Recorded Internet Access Q1 Yes 03/08/2024 Internet Access Q2 Not on file 03/08/2024 Comments No Sex and Gender Information Value Date Recorded Sex Assigned at Female 05/06/2022 10:38 AM EDT Legal Sex Female 10:38 AM EDT Gender Identity Female 05/06/2022 10:38 AM EDT Sexual Orientation Don't know 05/06/2022 10 :38 AM EDT documented as of this encounter Last Filed Vital Signs Vital Sign Reading Time Taken Comments Blood Pressure 128/74 04/05/2025 10:04 AM EDT Pulse 71 04/05/2025 10:04 AM EDT Temperature 36.3 C (97.4 F) 04/05/2025 10:04 AM EDT Respiratory Rate 20 04/05/2025 10:04 AM EDT Oxygen Saturation - - Inhaled Oxygen Concentration - - Weight 125 kg (276 lb 6.4 oz) 04/05/2025 10:04 A M EDT Height 162.6 cm (5' 4 ) 04/05/2025 10:04 AM EDT Body Mass Index 47.44 04/05/2025 10:04 AM EDT documented in this encounter Functional Status * Over the past 2 weeks, how often have you been bothered by any of the following problems? Question Answer Date of Assessment Author Patient Health Questionnaire -2 Score 1 04/05/2025 10:42 AM Jessi Whitley MA * Little interest or pleasure in doing things Answer Date of Assessment Author Several days 04/05/2025 10:42 AM Jessi Whitley MA * Feeling down, depressed, or hopeless Answer Date of Assessment Author Not at all 04/05/2025 10:42 AM Jessi Whitley MA * Trouble falling or staying asleep, or sleeping too much Answer Date of Assessment Author Several days 04/05/2025 10:42 AM Jessi Whitley MA * Feeling tired or having little energy Answer Date of Assessment Author Several days 04/05/2025 10:42 AM Jessi Whitley MA * Poor appetite or overeating Answer Date of Assessment Author Several days 04/05/2025 10:42 AM Jessi Whitley MA * Feeling bad about yourself - or that you are a failure or have let yourself or your family down Answer Date of Assessment Author Not at all 04/05/2025 10:42 AM Jessi Whitley MA * Trouble concentrating on things, such as reading the newspaper or watching television Answer Date of Assessment Author Not at all 04/05/2025 10:42 AM Jessi Whitley MA * Moving or speaking so slowly that other people could have noticed? Or the opposite - being so fidgety or restless that you have been moving around a lot more than usual. Answer Date of Assessment Author Not at all 04/05/2025 10:42 AM Jessi Whitley MA * Thoughts that you would be better off or hurting yourself in some way Answer Date of Assessment Author Not at all 04/05/2025 10:42 AM Jessi Whitley MA * Patient Health Questionnaire-9 Score Answer Date of Assessment Author 4 04/05/2025 10:42 AM Jessi Whitley MA * How difficult have these problems made it for you to do your work, take care of things at home, or get along with other people? Answer Date of Assessment Author Not difficult at all 04/05/2025 10:42 AM Jessi Juarez MA * Over the last 2 weeks, how often have you been bothered by any of the following problems? Question Answer Date of Assessment Author Feeling nervous, anxious, or on edge 1 04/05/2025 10:42 AM EDT Jessi Hamlin MA Not being able to stop or co ntrol worrying 0 04/05/2025 10:42 AM EDT Jessi Hamlin MA Worrying too much about diff erent things 1 04/05/2025 10:42 AM EDT Jessi Hamlin MA Trouble relaxing 2 04/05/2025 10:42 AM EDT Jessi Halmin MA Being so restless that it is hard to sit still 0 04/05/2025 10:42 AM EDT Jessi Hamlin MA Becoming easily annoyed or irritable 2 04/05/2025 10:42 AM EDT Jessi Hamlin MA Feeling afraid as if somethi ng awful might happen 0 04/05/2025 10:42 AM EDT Jessi Hamlin MA WINSTON-7 Total Score 6 04/05/2025 10:42 AM EDT Jessi Hamlin MA documented as of this encounter Plan of Treatment Upcoming Encounters Date Type Department Care Team (Late st Contact Info) Description 04/29/2025 10:00 AM EDT Medication Management [facility] [address] [place] [address] Stephani Sepulveda, PharmD [address] [place] [address] Scheduled Orders Name Type Priority Associated Diagnoses Orde r Schedule XR Hand 3+ Views Left Imaging Routine Finger pain, left Expected: 04/05/2025, Expires: 04/05/2026 documented as of this encounter Goals Goal Patient Goal Type Associated Problems Recent Progress Patient-Stated? Author Record your blood pressure once per day Blood Pressure No Puia, Stephani, PharmD Blood Pressure < 140/90 Blood Pressure 128/74(2024 10:04 AM EDT) No Puia Stephani, PharmD Record your blood sugar as directed Result Component No Puia, Stephani, PharmD Note: Use CGM, ensuring sensor is scanned at least once every 8 hours to capture 24H data. Check BG manually, as directed. Hemoglobin A1c < 7 Result Component 7.1( 10:48 AM EDT) No Stephani Sepulveda PharmD documented as of this encounter Procedures Procedure Name Priority Date/Time Associated Diagnosis Comments POCT GLYCATED HEMOGLOBIN, TOTAL Routine 04/05/2025 10:48 AM EDT Type 2 diabetes mellitus without complication, with long-term current use of insulin ([facility]) POCT GLUCOSE Routine 04/05/2025 10:05 AM EDT Type 2 diabetes mellitus without complication, with long-term current use of insulin ([facility]) documented in this encounter Results * (ABNORMAL) POCT Hgb A1c (04/05/2025 10:48 AM EDT) Hemoglobin A1C 7.1(A) 4.0 - 5.7 % QC [employer] Lot # [id number] Lot# Expiration Date Blood 04/05/2025 10:4 8 AM EDT Malissa Sweet DO POINT OF CARE TEST ENTER/TEOFILO T ORDERABLES Final Result * POCT Glucose (04/05/2025 10:05 AM EDT) Glucose Blood, POC 146 60 - 200 mg/dL [place] Lot # [id number] Lot# Expiration Date 726 Blood Capillary blood specimen / Unknown 04/05/2025 10:05 AM EDT Malissa Sweet DO POINT OF CARE TEST ENTER/TEOFILO T ORDERABLES Final Result documented in this encounter Visit Diagnoses Diagnosis Type 2 diabetes mellitus without complication, with long-term current use of insulin (HCC)- Primary Essential hypertension Unspecified essential hypertension Other hyperlipidemia Fatty liver Other chronic nonalcoholic liver disease Anxiety Anxiety state, unspecified Irritable bowel syndrome with constipation and diarrhea Renal cyst Unspecified congenital cystic kidney disease Heartburn Other insomnia Sleep-disordered breathing Other sleep disturbances Hyperpigmented skin lesion Skin nodule Localized superficial swelling, mass, or lump Intertrigo Other specified erythematous condition Finger pain, left Pain in soft tissues of limb Healthcare maintenance Dietary counseling Dietary surveillance and counseling Exercise counseling documented in this encounter Additional Health Concerns Assessment Noted Time PHQ-9 Depression Total Score: 4 04/05/20 25 10:42 AM EDT documented as of this encounter Care Teams Diesel Engine Fitter Relationship Specialty Start Date End Date Malissa Sweet DO [address] [place] [id number] PCP - General Family Medicine 12/21/20 documented as of this encounter
--- OUTSIDE RECORDS SUMMARY | 2025-04-05 12:18 | XMS_ITS | Encounter Summary ---
Author Organization [employer] Address [address] 7 [place] [address] Care Team Providers Care Buttermaker Continuous Churn Name Role Phone Malissa Sweet DO Primary Care Provider + [phone] Stephani Sepulveda PharmD Unavailable Reason for Visit * Reason Onset Date Comments OV 08/06/23 08/06/2023 Encounter Details Date Type Department Care Team (Late st Contact Info) Description 08/06/2023 Telephone [facility] [address] [place], [place] [phone] Malissa Sweet DO [address] [place], [place] [phone] OV 08/06/23 Social History Tobacco Use Types [...] with pcp 08/06/23. Please contact pt at [phone]. documented in this encounter Plan of Treatment Upcoming Encounters Date Type Department Care Team (Late st Contact Info) Description 04/29/2025 10:00 AM EDT Medication Management [facility] [address] [place] [address] Pu[employer]queria fisheryssa, PharmD [address] [place] [address] documented as of this encounter Goals Goal Patient Goal Type Associated Problems Recent Progress Patient-Stated? Author Record your blood pressure once per day Blood Pressure No Puia, Stephani, PharmD Blood Pressure < 140/90 Blood Pressure 128/74(2024 10:04 AM EDT) No Puia, Stephani, PharmD Record your blood sugar as directed Result Component No Puia, Stephani, PharmD Note: Use CGM, ensuring sensor is scanned at least once every 8 hours to capture 24H data. Check BG manually, as directed. Hemoglobin A1c < 7 Result Component 7.1( 10:48 AM EDT) No Puia, Stephani, PharmD documented as of this encounter Visit Diagnoses Not on filedocumented in this encounter Additional Health Concerns Assessment Noted Time PHQ-9 Depression Total Score: 1 10/12/19 23 10:27 AM EDT documented as of this encounter Care Teams Buttermaker Continuous Churn Relationship Specialty Start Date End Date Malissa Sweet DO [address], [place] [phone] PCP - General Family Medicine 12/21/20 Stephani Sepulveda, PharmD [address] [place] [address] Pharmacist Internal Medicine 01/24/23 09/29/24 documented as of this encounter
--- OUTSIDE RECORDS SUMMARY | 2025-04-05 12:18 | XMS_ITS | Clinical Summary ---
Author Organization [facility] Address [address] [place] [phone] Phone Care Team Providers Care Gold And Silver Assayer Name Role Phone [facility] Primary Care Provider Unavailable Allergies No known active allergies Social History Tobacco Use Types Packs/Day Years Used Date Smoking Tobacco: Never Assessed Education Answer Date Recorded Are you interested in more education? Not on leoncio e 11/02/2022 Are you concerned about learning? Not on file 11/02/2022 No 11/02/2022 No 11/02/2022 Digital Access Answer Date Recorded No 12/03/2022 No 12/03/2022 Reliable internet access at home? Not on file 12/03/2022 Device with a working camera? Not on file Comments Unknown Sex and Gender Information Value Date Recorded Sex Assigned at Not on file Legal Sex Female 2:33 AM EDT Gender Identity Not on file Sexual Orientation Not on file Last Filed Vital Signs Vital Sign Reading Time Taken Comments Blood Pressure 160/117 04/09/2022 2:42 AM EDT Pulse 82 04/09/2022 2:51 AM EDT Temperature 36 C (96.8 F) 04/09/2022 2:42 AM EDT Respiratory Rate 20 04/09/2022 2:42 AM EDT Oxygen Saturation 99% 04/09/2022 2:42 AM EDT Inhaled Oxygen Concentration - - Weight 122.5 kg (270 lb) 04/09/2022 2:42 AM EDT Height 165.1 cm (5' 5 ) 04/09/2022 2:42 AM EDT Body Mass Index 44.93 04/09/2022 2:42 AM EDT Plan of Treatment Health Maintenance Due Date Last Done Comments Adult Td,Tdap Booster 1981 DEPRESSION SCREENING 1993 SMOKING Hx and SMOKELESS TOB ACCO SCREENING 1994 HEPATITIS C SCREENING 1999 HIV ONE-TIME SCREENING (18-6 5 YEARS) 1999 PAP SMEAR 2002 SCREENING FOR DIABETES 02/10/2016 MAMMOGRAM 2021 INFLUENZA VACCINE (#1) 2025 COVID-19 VACCINE (2023-2 5 season) 2025 HEPATITIS A VACCINES Aged Out No long er eligible based on patient's age to complete this topic HIB VACCINES Aged Out No longer eligi ble based on patient's age to complete this topic MENINGOCOCCAL VACCINES (ACWY) Aged Out No longer eligible based on patient's age to complete this topic MENINGOCOCCAL VACCINES (B) Aged Out N o longer eligible based on patient's age to complete this topic PNEUMOCOCCAL VACCINES (0-49 years) Aged Out No longer eligible based on patient's age to complete this topic Medical Devices Not on file Insurance [place] [id number] C3 ACO C3 ACO C3 ACO [facility] C3 ACO Care Teams Gold And Silver Assayer Relationship Specialty Start Date End Date CenterMariana MD PCP - General 04/09/22 Additional Source Comments The information contained in this document represents components of the legal health record. It is not the complete legal health record.[facility]
--- OUTSIDE RECORDS SUMMARY | 2025-04-05 12:18 | XMS_ITS | Clinical Summary ---
Author Organization [employer] Address [address] [place] [address] 7 [place] [address] Care Team Providers Care Gl Accountant Name Role Phone MegaMalissa sawyer Primary Care Provider + [phone] Allergies No known active allergies Medications SUMAtriptan (Imitrex) 50 MG tablet TAKE 1 TABLET BY MOUTH AT ONSET OF MIGRAINE. MAY REPEAT ONCE AFTER 2 HOURS IF NEEDED. DO NOT EXCEED 4 TABLETS IN 24 HOURS 2 Active Blood Pressure Monitor [facility] USE TO CHECK BLOOD PRESSURE EVERY DAY DIRECTED 3 Active Continuous Glucose Front Desk Receptionist (Six Degrees GroupStyle Danilo 3 [place]) device 1 each 3 times daily. Use daily as directed for CGM 1 each 4 Active cholecalciferol (D3 Super Strength) 50 MCG (2000 UT) capsule TAKE 2 CAPSULES BY MOUTH ONCE DAILY IN THE MORNING 180 capsule 3 4 Active hydrOXYzine HCl (Atarax) 25 MG tabletIndication s:Anxiety disorder, unspecified TAKE 1 TABLET BY MOUTH THREE TIMES DAILY NEEDED FOR ANXIETY 60 tablet 5 5 Active naproxen (Naprosyn) 500 MG tablet TAKE 1 TABLET BY MOUTH TWICE DAILY IN THE MORNING AND IN THE EVENING NEEDED FOR PAIN 40 tablet 1 5 Active nystatin (Mycostatin) 262725 UNIT/GM powder Apply topically 2 times daily. 120 g 3 5 09/07/19 26 Active Alcohol Swabs (SM Alcohol Prep) 70 % padsIndications: Type 2 diabetes mellitus without complication, without long-term current use of insulin (HCC) Use up to three times daily, as directed 100 each 5 Active atorvastatin (Lipitor) 10 MG tabletIndication s:Type 2 diabetes mellitus without complication, without long-term current use of insulin ([facility]) Take 1 tablet (10 mg) by mouth in the evening. 90 tablet 5 Active glucose blood (FreeStyle Precision Man Test) test stripIndications :Type 2 diabetes mellitus without complication, without long-term current use of insulin ([facility]) Use to test blood sugar up to 3 times daily, as directed 100 each 5 Active hydroCHLOROthiaz eugene (HYDRODiuril) 25 MG tabletIndication s:Essential hypertension Take 1 tablet (25 mg) by mouth in the morning. 90 tablet 5 Active lisinopril 30 MG tabletIndication s:Type 2 diabetes mellitus without complication, without long-term current use of insulin ([facility]),Essential hypertension Take 1 tablet (30 mg) by mouth Once per day. 90 tablet 5 Active metFORMIN XR (Glucophage-XR) 500 MG 24 hr tabletIndication s:Type 2 diabetes mellitus without complication, without long-term current use of insulin ([facility]) TAKE 1 TABLET BY MOUTH TWICE DAILY IN THE MORNING AND IN THE EVENING WITH MEALS 180 tablet 5 Active insulin pen needle (Pentips) 32G x 4 mm miscIndications: Type 2 diabetes mellitus without complication, without long-term current use of insulin ([facility]) Use 1 daily with Lantus 100 each 5 Active TRUEplus Lancets 33G miscIndications: Type 2 diabetes mellitus without complication, without long-term current use of insulin ([facility]) Use to test blood sugar up to three times daily 100 each 5 Active Fiber-Lax 625 MG tablet TAKE 1 TABLET TWICE DAILY IN THE MORNING AND IN THE EVENING 180 tablet 5 Active omeprazole (PriLOSEC) [address] capsule TAKE 1 CAPSULE BY MOUTH EVERY MORNING BEFORE BREAKFAST DO NOT BREAK, CRUSH, DISSOLVE OR CHEW 90 capsule 5 Active Multiple Vitamins-Mineral s (Multivitamin-Mi nerals) tablet Take one tablet daily. 90 tablet 5 Active Continuous Glucose Sensor (FreeStyle Danilo 3 Plus Sensor) miscIndications: Type 2 diabetes mellitus without complication, without long-term current use of insulin ([facility]) 1 each Once per day. Apply 1 sensor every 15 days as directed for CGM 2 each 11 5 Active melatonin 5 MG tablet TAKE 1 TO 2 TABLETS BY MOUTH AT BEDTIME NEEDED FOR SLEEP 60 tablet 3 5 Active insulin glargine (Lantus SoloStar) 100 UNIT/ML penIndications:T ype 2 diabetes mellitus without complication, with long-term current use of insulin ([facility]) Inject 14 Units under the skin at bedtime. 15 mL 1 5 Active FLUoxetine (PROzac) 20 MG capsule TAKE 1 CAPSULE BY MOUTH EVERY MORNING 30 capsule 5 Active Tirzepatide (Mounjaro) 12.5 MG/0.5ML solution auto-injector Inject 12.5 mg under the skin 1 (one) time per week. 2 mL 11 5 Active traZODone (Desyrel) 50 MG tablet TAKE 1/2 TO 1 TABLET BY MOUTH AT BEDTIME NEEDED FOR SLEEP 30 tablet 3 5 03/29/20 25 Discontin ued(Patie nt refused) Tirzepatide (Mounjaro) 10 MG/0.5ML solution auto-injectorInd ications:Type 2 diabetes mellitus without complication, with long-term current use of insulin ([facility]) Inject 10 mg under the skin 1 (one) time per week. 2 mL 11 5 03/29/20 25 Discontin ued(Dose adjustmen t) Active Problems Problem Noted Date Diagnosed Date [...] scheduled -s/p optho eval JUL 2022 at [facility], encouraged schedule f/u -foot exam next visit* Vertigo 07/02/2022 Vitamin D deficiency 07/02/2022 Encounters Date Type Department Care Team Description 04/05/2025 10:00 AM EDT Office Visit [facility] MEDICINE [address] [place] [address] Malissa Sweet DO Type 2 diabetes mellitus without complication, with long-term current use of insulin ([facility]) (Primary Dx); Essential hypertension; Other hyperlipidemia; Fatty liver; Anxiety; Irritable bowel syndrome with constipation and diarrhea; Renal cyst; Heartburn; Other insomnia; Sleep-disordered breathing; Hyperpigmented skin lesion; Skin nodule; Intertrigo; Finger pain, left; Healthcare maintenance; Dietary counseling; Exercise counseling 04/05/2025 Travel 04/04/2025 Telephone [facility] [place] [address] Malissa Sweet DO Chart Prep 03/29/2025 Travel 03/28/2025 Patient Outreach [facility] MEDICINE [address] [place] [address] Malissa Sweet DO Pre-visit Planning (SDOH screening completed on 08/27/2024) 03/08/[address] [address] Malissa Sweet DO Recall Letter (Recall Letter sent 03/08/25.) 03/02/2025 Refill [facility] MEDICINE [address] [place] [address] Malissa Sweet DO 03/02/2025 Travel 02/24/2025 Outside Procedure [facility] OPTOMETRY [address] [place] [address] Aixa Funk, OD Presbyopia (Primary Dx) 02/23/2025 1:00 PM EDT Office Visit [facility] OPTOMETRY [address] [place] [address] Aixa Funk, OD Myopia of both eyes (Primary Dx) 02/23/2025 Travel 02/15/2025 Travel 02/10/2025 Telephone [facility] [address] [place] [address] Malissa Sweet DO 2025 Refill [facility] MEDICINE [address] [place], [place] [address] [address] Malissa Sweet DO 02/02/2025 Orders Only [facility] MEDICINE [address] [place] [address] Malissa Sweet DO Obstructive sleep apnea (Primary Dx) 01/28/2025 Telephone [facility] MEDICINE [address] [place] [address] Malissa Sweet DO Results 01/25/2025 Travel 01/20/2025 10:00 AM EDT Office Visit [facility] OPTOMETRY [address] [place] [address] Jennifer Roach, OD Type 2 diabetes mellitus without ophthalmic manifestations (CMS/HCC) (Primary Dx); Dry eyes, bilateral; Myopia with presbyopia of both eyes 01/20/2025 Travel 01/17/2025 Refill [facility] MEDICINE [address] [place] [address] Malissa Sweet DO 01/13/2025 Travel 01/11/2025 Telephone [facility] MEDICINE [address] [place] [address] Stephani Sepulveda, PharmD Prior Authorization ([facility] ) 01/11/2025 Telephone [facility] MEDICINE [address] [place] [address] Stephani Sepulveda, PharmD 01/04/2025 Telephone [facility] MEDICINE [address] [place] [address] Stephani Sepulveda, PharmD Prior Authorization (Danilo 3 plus [facility]) 01/04/2025 Travel from Last 3 Months Immunizations Immunization Administration Dates Next Due Hep A, Adult [...] 20 04/05/2025 10:04 AM EDT Oxygen Saturation 99% 09/06/2024 10:46 AM EST Inhaled Oxygen Concentration - - Weight 125 kg (276 lb 6.4 oz) 04/05/2025 10:04 A M EDT Height 162.6 cm (5' 4 ) 04/05/2025 10:04 AM EDT Body Mass Index 47.44 04/05/2025 10:04 AM EDT Plan of Treatment Upcoming Encounters Date Type Department Care Team (Late st Contact Info) Description 04/29/2025 10:00 AM EDT Medication Management [facility] MEDICINE [address] [place], [place] [phone] Stephani Sepulveda, PharmD [address] [place], [place] [phone] Health Maintenance Due Date Last Done Comments Diabetes: Foot Exam 1991 Family Planning (PISQ) 02/10/1996 HPV Vaccines (1 - 3-dose series) 02/10/1996 COVID-19 Vaccine ( season) 2025 07/20/2021, 11/23/2020, 11/02/2020 Influenza Vaccine (#1) 2025 , 10/11/2022, 04/03/2021 Diabetes: Hemoglobin A1C 07/05/2025 025, 01/25/2025, 10/29/2024, Additional history exists SDOH Screening 08/27/2025 08/27/2024 Alcohol/Substance Use Screening 09/06/2025 09/06/2024 Diabetes: Urine Protein Screening 10/29/2025 10/29/2024, 02/20/2024, 02/20/2023, Additional history exists Lipid Panel 10/29/2025 10/29/2024, 02/04, 02/20/2023, Additional history exists Mammogram 11/11/2025 11/11/2024, 11/05, 11/28/2022 Tobacco Screening 01/20/2026 01/20/2025 Disability Screening 03/02/2026 03/02/2025 Cervical Cancer Screening 03/21/2026 Pap Smear 03/21/2026 03/21/2023 Depression Screening 04/05/2026 04/05/2025, 04/05/20 25 Eye Exam 01/20/2027 01/20/2025, 01/04, 01/20/2025, Additional history exists HPV/Cotest 03/21/2028 03/21/2023 DTaP/Tdap/Td Vaccines (2 - Td or Tdap) 12/21/2030 12/21/2020 Zoster Vaccines (1 of 2) 2031 RSV Patients and Patients Aged 60 years or older (1 - 1-dose 75+ series) 02/10/2056 Pneumococcal Vaccine: Pediatrics (0 to 5 Years) and At-Risk Patients (6 to 49) Years Completed 03/21/2023, 02/02/2021 Hepatitis A Vaccines Completed 02/20/2024, 01/23/20 23 Hepatitis B Vaccines Completed 02/20/2024, 03/21/2023, 01/22/2023 HIV Screening Completed 10/29/2024, 02/04, 02/20/2023, Additional history exists Hepatitis C Screening Completed 10/29/2024 , 02/20/2024, 02/20/2023, Additional history exists HIB Vaccines Aged Out No longer eligi ble based on patient's age to complete this topic IPV Vaccines Aged Out No longer eligi ble based on patient's age to complete this topic Meningococcal B Vaccine Aged Out No l onger eligible based on patient's age to complete [...] Blood Pressure 128/74(2024 10:04 AM EDT) No Stephani Sepulveda, PharmD Record your blood sugar as directed Result Component No Stephani Sepulveda PharmD Note: Use CGM, ensuring sensor is scanned at least once every 8 hours to capture 24H data. Check BG manually, as directed. Hemoglobin A1c < 7 Result Component 7.1( 10:48 AM EDT) No Stephani Sepulveda PharmD Procedures Procedure Name Priority Date/Time Associated Diagnosis Comments POCT GLYCATED HEMOGLOBIN, TOTAL Routine 04/05/2025 10:48 AM EDT Type 2 diabetes mellitus without complication, with long-term current use of insulin (CMS/HCC) POCT GLUCOSE Routine 04/05/2025 10:05 AM EDT Type 2 diabetes mellitus without complication, with long-term current use of insulin (CMS/HCC) POCT GLYCATED HEMOGLOBIN, TOTAL Routine 01/25/2025 4:44 PM EDT Type 2 diabetes mellitus without complication, without long-term current use of insulin (CMS/HCC) BI MAMMOGRAM SCREENING TOMOSYNTHESIS BILATERAL Routine 11/11/2024 10:00 AM EDT Encounter for screening mammogram for malignant neoplasm of breast HEPATITIS C AB W/REFL TO HCV RNA, [...] screening mammogram for malignant neoplasm of breast HPV MRNA E6/E7 REFLEX TO HPV 16, 18/45 Routine 03/21/2023 12:49 PM EDT PAP SMEAR Routine 03/21/2023 12:49 PM EDT from Last 3 Months or Most Recently Relevant to Health Maintenance Results * (ABNORMAL) POCT Hgb A1c (04/05/2025 10:48 AM EDT) Only the most recent of2 resultswithin the time period is included. Hemoglobin A1C 7.1(A) 4.0 - 5.7 % QC Media Lot # [id number] Lot# Expiration Date Blood 04/05/2025 10:4 8 AM EDT Malissa Sweet DO POINT OF CARE TEST ENTER/TEOFILO T ORDERABLES Final Result * POCT Glucose (04/05/2025 10:05 AM EDT) Glucose Blood, POC 146 60 - 200 mg/dL QC Media Lot # [id number] Lot# Expiration Date 72 Blood Capillary blood specimen / Unknown 04/05/2025 10:05 AM EDT Malissa Sweet DO POINT OF CARE TEST ENTER/TEOFILO T ORDERABLES Final Result * BI Mammogram Screening Tomosynthesis Bilateral (11/11/2024 10:00 AM EDT) Anatomical Region Laterality Modality Breast Bilateral Mammography 11/11/2024 10:0 0 AM EDT Narrative 11/17/2024 8:04 AM EDT [facility] [address] [place], [place] [address] Mammography Report Signed Patient: Antonietta Pak MR#: [id number] : 1980 Acct:[id number] Age/Sex: 44 / F ADM Date: 11/11/24 Loc: HO.MAMMO Attending Dr: Malissa Sweet DO Ordering Physician: Malissa Sweet DO Results: 1N egative Date of Service: 11/11/24 Follow Up: 1 Year From [facility] Mammogram Procedure(s): MM tomosynthesis screening BI Accession Number(s): [id number] cc: Malissa Sweet DO EXAMINATION: MM SCREENING DIGITAL BREAST TOMOSYNTHESIS, BILATERAL CLINICAL INFORMATION: Screening. Asymptomatic. COMPARISON: Mammography: Comparison is made with available priors TECHNIQUE: Digital breast mammography with tomosynthesis is performed in both the craniocaudal and mediolateral oblique views along with computer-aided detection (CAD). FINDINGS: There are scattered areas of fibroglandular density (ACR BI-RADS breast composition Category b). There are no significant masses, abnormal calcifications, or other abnormalities. MM/MM tomosynthesis screening BI IMPRESSION: No mammographic evidence of malignancy. ASSESSMENT: BI-RADS BI-RADS 1 - Negative RECOMMENDATION: Routine annual mammography screening. 1 year F/U This examination should not preclude the clinical evaluation of a suspicious palpable abnormality. This patient's information was entered into a reminder system with a target due date for their next mammogram. Electronically signed by: Carley Alejo DO 11/17/2024 08:02 AM EDT RP Dictated By: Carley Alejo DO Signed By: <Electronically signed by Carley Alejo DO in OV> 11/17/24 0802 DD/ 1000 TD/TT: 11/11/24 1017 Storeroom Supervisor: Procedure Note Donotuseinterpreter, Image - 11/22/2024 [facility] [address] [place] [address] Mammography Report Signed Patient: Mary Pak#: [id number] : 1980Acct:[id number] Age/Sex: 44 / FADM Date: 11/11/24 Loc: HO.MAMMO Attending Dr: Malissa Sweet DO Ordering Physician: Malissa Sweetults: 1N egative Date of Service: 11/11/24Follow Up: 1 Year From Orig inal Mammogram Procedure(s): MM tomosynthesis screening BI Accession Number(s): [id number] cc: Malissa Sweet DO EXAMINATION: MM SCREENING DIGITAL BREAST TOMOSYNTHESIS, BILATERAL CLINICAL INFORMATION: Screening. Asymptomatic. COMPARISON: Mammography: Comparison is made with available priors TECHNIQUE: Digital breast mammography with tomosynthesis is performed in both the craniocaudal and mediolateral oblique views along with computer-aided detection (CAD). FINDINGS: There are scattered areas of fibroglandular density (ACR BI-RADS breast composition Category b). There are no significant masses, abnormal calcifications, or other abnormalities. MM/MM tomosynthesis screening BI IMPRESSION: No mammographic evidence of malignancy. ASSESSMENT: BI-RADS BI-RADS 1 - Negative RECOMMENDATION: Routine annual mammography screening. 1 year F/U This examination should not preclude the clinical evaluation of a suspicious palpable abnormality. This patient's information was entered into a reminder system with a target due date for their next mammogram. Electronically signed by: Carley Alejo DO 11/17/2024 08:02 AM EDT RP Dictated By: Carley Alejo DO Signed By: <Electronically signed by Carley Alejo DO in OV> 11/17/24 0802 DD/ 1000 TD/TT: 11/11/24 1017 Storeroom Supervisor: Malissa Sweet DO IMG BI PROCEDURES Edited Res ult - Final * Albumin, Random Urine W/Creatinine (10/29/2024 11:52 AM EDT) Creatinine, Urine 244.76 mg/dL [facility] Microalbumin Urine 16.0 mg/L [facility] Microalbum Creatinine Ratio Ur 6.5 <30 ug/mg cr [facility] Comment:Albumin/Creatinine R atio Reference Ranges: Normal: < 30 ug/mg creatinine Microalbuminuria: 30 - 300 ug/mg creatinineClinical Albuminuria: > 300 ug/mg creatinine Urine (Urine, Random) 10/29/2024 11:52 AM EDT 10/29/2024 1:01 PM EDT Malissa Sweet DO LAB URINE ORDERABLES Final R esult Performing Organization Address [facility] Co de Phone Number [facility] [address] [place] [phone] * Hepatitis C Antibody with Reflex to HCV, RNA, Quantitative, Real-Time PCR (10/29/2024 11:52 AM EDT) Hepatitis C Antibody Nonreactive Nonreactive [facility] Comment:Antibodies to HCV no t detected; does not exclude early acuteHCV infection. Blood Venous blood specimen / Unknown 10/29/2024 11:52 AM EDT 10/29/2024 12:57 PM EDT Malissa Sweet DO LAB BLOOD ORDERABLES Final R esult Performing Organization Address City/[facility]/ZIP Co de Phone Number [facility] [address] [place] [phone] * HIV-1/2 Antigen and Antibodies, Fourth Generation, with Reflexes (10/29/2024 11:52 AM EDT) HIV AB/AG Nonreactive Nonreactive [facility] Comment:HIV-1 p24 Ag and/or HIV-1/HIV-2 Ab not detected.A test result that is nonreactive does not exclude thepossibility of exposure to or infection with HIV-1 and/orHIV-2. Nonreactive results in this assay for individualswith prior exposure to HIV-1 and/or HIV-2 may be due toantigen and antibody levels that are below the limit ofdetection of this assay.The [employer] HIV Ag/Ab Combo assay result andsupplemental assay results should be interpreted inconjunction with the patient's clinical presentation,history and other laboratory results. If the results areinconsistent with clinical evidence, additional testing issuggested to confirm the result. Blood Venous blood specimen / Unknown 10/29/2024 11:52 AM EDT 10/29/2024 12:57 PM EDT us Malissa Sweet DO LAB BLOOD ORDERABLES Final R esult [facility] [address] [place] [phone] * Lipid Panel, Standard (10/29/2024 11:52 AM EDT) Triglycerides 94 <150 mg/dL [facility] Comment:Desirable Triglyceri de: less than 150 mg/dLBorderline High Triglyceride 150-199 mg/dLHigh Triglyceride: 200-499 mg/dLVery High Triglyceride: greater than or equal to 5OO mg/dL Cholesterol 163 <200 mg/dL [facility] Comment:Desirable Cholestero l: less than 200 mg/dLBorderline High Cholesterol: 200-239 mg/dLHigh Cholesterol: greater than 239 mg/dL LDL Cholesterol Calculated 89 <100 mg/dL [facility] Comment:Desirable LDL: less than 100 mg/dLNear Optimal/Above Optimal LDL: 110- 129 mg/dLBorderline High LDL: 130-159 mg/dLHigh LDL: 160-189 mg/dLVery High LDL: greater than or equal to 190 mg/dL HDL Cholesterol 56 >40 mg/dL [facility] Comment:Desirable HDL: great er than 40 mg/dL Note: This HDL assay may give artificially low results in patients with liver disease. Blood Venous blood specimen / Unknown 10/29/2024 11:52 AM EDT 10/29/2024 1:06 PM EDT Malissa Sweet LAB BLOOD ORDERABLES Final R esult [facility] [address] [place] [phone] * HPV mRNA E6/E7 w/Reflex to HPV Genotypes 16, 18/45 (03/21/2023 12:49 PM EDT) HPV nRNA E6/E7 Not Detected Not Detected [facility] Comment:Methodology: Transcr iption-Mediated AmplificationThis assay detects E6/E7 viral messenger RNA (mRNA) from 14high-risk HPV types (16,18,31,33,35,39,45,51,52,56,58,59,66,68).Cervical sources are required for HPV testing.If a vaginal source from a patient who has had atotal hysterectomy with removal of cervix wassubmitted, please contact the testing laboratoryfor alternative testing options.For additional information, please refer [email or web address].[employer]/faq/OWW886s0(This link if provided for information/educational purposes only.)THIS TEST WAS PERFORMED AT:[employer] [place] [phone] PORTILLO MD HPV mRNA E6/E7 [facility] HPV 16 RNA [facility] HPV 18/45 RNA [facility] 03/21/2023 12:4 9 PM EDT 03/24/2023 9:30 AM EDT Malissa Sweet DO LAB CYTOLOGY ORDERABLES Renetta l Result [facility] [address] [place] [phone] * Pap Smear (03/21/2023 12:49 PM EDT) 03/21/2023 12:4 9 PM EDT 03/24/2023 9:30 AM EDT Narrative [facility] - 04/01/2023 1:59 PM EDT ----- ------- Name: Antonietta Pak Age/Sex: 43/F : 1980 Unit#: [id number] Attend Dr: Malissa Sweet DO Re03/21/23 Status: [facility] Disch: ----- ------- SPEC : [id number] RECD: 03/24/23 STATUS: ASHLEY REFela NUM: [id number] LO: 03/21/23-1249 [facility] DR: Malissa Sweet DO ENTERED: 03/24/23-8722 SP TYPE: Pap Smr OT DR: ORDERED: Pap Smear Interpretation Satisfactory for evaluation. Negative for intraepithelial lesion or malignancy. HPV mRNA E6/E7: NOT DETECTED This assay detects E6/E7 viral messenger RNA (mRNA) from 14 high-risk HPV types (16, 18, 31, 33, 35, 39, 45, 51, 52, 56, 58, 59, 66, 68) HPV testing performed by [facility] [employer] [employer] [facility], [place], [place]. See reference laboratory portion of the EMR for entire report. Clinical Information LMP: 03/14/23 Previous PAP test: Unknown date/findings Material Received ThinPrep-Vaginal/Cervical ----- ------- Signed (signature on file) Emili Rendon 04/01/23 1359 ----- ------- END OF REPORT Malissa Sweet DO LAB CYTOLOGY ORDERABLES Renetta encarnacion Result [facility] [address] [place] [phone] from Last 3 Months or Most Recently Relevant to Health Maintenance Insurance [employer] Care Teams Gl Accountant Relationship Specialty Start Date End Date Malissa Sweet DO [address] [place] [phone] PCP - General Family Medicine 12/21/20
--- OUTSIDE RECORDS SUMMARY | 2025-04-05 12:18 | XMS_ITS | Encounter Summary ---
Author Organization [employer] Address [address] [place] [address] 7 [place] [address] Care Team Providers Care Coating Operator Name Role Phone TannerMalissa fuller Primary Care Provider +[phone] PuStephani fisher PharmD Unavailable Encounter Details Date Type Department Care Team (Late st Contact Info) Description 06/24/2022 Orders Only [facility] [address] [place] [address] Tammy Bryson LPN Social History Tobacco Use [...] Description 04/29/2025 10:00 AM EDT Medication Management [facility] MEDICINE [address] [place] [address] Puia, Stephani, PharmD [address] [place] [address] documented as of this encounter Procedures Procedure [...] (08/18/2022 11:38 AM EST) Color Urine Yellow [facility] Appearance Urine Clear [facility] PH 5.5 5.0 - 9.0 [facility] Glucose Urine UA >=1000(A) Negative mg/dL [facility] Urine Blood Small (1+)(A) Negative [facility] Specific [place] - Urine 1.010 1.005 - 1.025 [facility] Urine Protein Negative Neg-Trace mg/dL [facility] Urine Ketones Negative Negative mg/dL [facility] Nitrite Urine Negative Negative [facility] Leukocyte Esterase Urine Negative Negative [facility] RBC Urine 0-2 0 - 2 /HPF [facility] Urine WBC 0-5 0 - 5 /HPF [facility] Urine Squamous Epithelial Cell 0-2 0 - 2 /HPF [facility] Urine Bacteria None Seen None Seen [facility] Hyaline Casts, Urine 0-2 0 - 2 /LPF [facility] 08/18/2022 11:3 8 AM EST 08/18/2022 11:41 AM EST Narrative [facility] - 08/18/2022 12:02 PM EST Urine, Clean Catch us [facility] External Provider LAB URI NE ORDERABLES Final Result [facility] [address] [place] [phone] * HIGH SENSITIVITY TROPONIN I (08/18/2022 10:05 AM EST) TROPONIN I HIGH SENSITIVITY <3.5 <3.5 - 17.0 ng/L [facility] Comment:The Porter high sens itivity Troponin-I results should beused in conjunction with other diagnostic information suchas ECG, clinical observations and information, and patientsymptoms to aid in the diagnosis of [place]. 08/18/2022 10:0 5 AM EST 08/18/2022 10:08 AM EST [facility] External Provider LAB BLO OD ORDERABLES Final Result [facility] [address] [place] [phone] * (ABNORMAL) Basic Metabolic Panel (08/18/2022 10:05 AM EST) Pathologist [facility] Sodium 135 135 - 145 mmol/L [facility] Potassium 3.9 3.3 - 5.1 mmol/L [facility] Chloride 101 96 - 108 mmol/L [facility] Carbon Dioxide 22 22 - 29 mmol/L [facility] Anion Gap 16 12 - 20 [facility] Urea Nitrogen (BUN) 7(L) 9 - 16 mg/dL [facility] Creatinine, Serum 0.75 0.5 - 1.4 mg/dL [facility] Creatinine Clr Calc Pharmacy 127.4 [facility] Comment:Provided height and weight: 162.56 cm,122.47 kg.eGFR (calculated from the MDRD study equation) and eCrCl(calculated from the Cockcroft-Gault equation) are based ondifferent parameters and may not yield comparable results.If eCrCl result is absurd, please check patient'sheight/weight. Estimated Glomerular Filt Rate >60 [facility] Comment:NOTE: For -Am erican individuals, multiply the result by 1.210.Chronic Kidney Disease: Estimated GFR < 60 mL/min/[id number] Kidney Disease: Estimated GFR < 15 mL/min/1.73m2 Glucose 311(H) 60 - 115 mg/dL [facility] Calcium 8.9 8.4 - 10.2 mg/dL [facility] 08/18/2022 10:0 5 AM EST 08/18/2022 10:08 AM EST us [facility] External Provider LAB BLO OD ORDERABLES Final Result [facility] [address] [place] [address] [phone] * (ABNORMAL) CBC auto differential (08/18/2022 10:05 AM EST) White Blood Count 8.7 4.8 - 10.8 X10*3/uL [facility] Red Blood Count 4.50 4.20 - 5.50 X10*6/uL [facility] Hemoglobin 12.7 12.0 - 16.0 g/dl [facility] Hematocrit 37.0 37.0 - 47.0 % [facility] Mean Corpuscular Volume 82.2 80.0 - 98.0 fL [facility] Mean Corpuscular Hemoglobin 28.2 27.0 - 33.0 pg [facility] Mean Corpuscular HGB Conc 34.3 31.0 - 35.0 g/dl [facility] Red Cell Distribution Width 12.8 11.0 - 16.0 % [facility] Platelet Count 324 160 - 400 X10*3/uL [facility] Mean Platelet Volume 8.8(L) 9.4 - 12.3 fL [facility] Neutrophils Percent Auto 58.3 45 - 73 % [facility] Imm Gran Pct Auto 0.2 0.0 - 0.4 % [facility] Lymphocytes Percent Auto 34.8 20 - 40 % [facility] Monocytes Percent Auto 5.3 2 - 11 % [facility] Eosinophils Percent Auto 0.9 0 - 4 % [facility] Basophils Percent Auto 0.5 0 - 2 % [facility] NRBC Pct Auto 0.0 0.0 - 0.2 /100WBC [facility] Neutrophils Absolute Auto 5.1 2.0 - 8.3 x10*3/uL [facility] Imm Gran Abs Auto 0.02 0.00 - 0.03 X10*3/uL [facility] Lymphocytes Absolute Auto 3.0 1.2 - 4.9 X10*3/uL [facility] Monocytes Absolute Auto 0.5 0.1 - 1.2 X10*3/uL [facility] Eosinophils Absolute Auto 0.1 0.0 - 0.4 X10*3/uL [facility] Basophils Absolute Auto 0.0 0.0 - 0.2 X10*3/uL [facility] NRBC Abs Auto 0.000 0.0 - 0.012 X10*3/uL [facility] 08/18/2022 10:0 5 AM EST 08/18/2022 10:08 AM EST [facility] External Provider LAB BLO OD ORDERABLES Final Result Performing Organization Address City/[facility]/ZIP Co de Phone Number [facility] [address] [place] [phone] * (ABNORMAL) GLUCOSE, WHOLE BLOOD (08/18/2022 9:22 AM EST) Glucose, Whole Blood 279(H) 60 - 115 mg/dL [facility] Comment:METER #: [id number] 08/18/2022 9:22 AM EST 08/18/2022 9:25 AM EST [facility] External Provider LAB BLO OD ORDERABLES Final Result Performing Organization Address [facility]/ZIP Co de Phone Number [facility] [address] [place] [phone] documented in this encounter Visit Diagnoses Not on filedocumented in this encounter Care Teams Coating Operator Relationship Specialty Start Date End Date Malissa Sweet DO [address] [place] [address] PCP - General Family Medicine 12/21/20 Stephani Sepulveda PharmD [address] [place] [address] Pharmacist Internal Medicine 01/24/23 09/29/24 documented as of this encounter
--- OUTSIDE RECORDS SUMMARY | 2025-04-05 12:19 | XMS_ITS | Encounter Summary ---
Author Organization [employer] Address [address] [facility] 7t [place] [address] Care Team Providers Care Digital Printer Name Role Phone TannerMalissa fuller Primary Care Provider + [phone] Encounter Details Date Type Department Care Team (Latest Contact Info) Description 04/05/2025 Travel Social History Tobacco Use Types Packs/Day Years [...] AM EDT documented as of this encounter Functional Status * Over the past 2 weeks, how often have you been bothered by any of the following problems? Question Answer Date of Assessment Author Patient Health Questionnaire -2 Score 1 04/05/2025 10:42 AM EDT Jessi Hamlin MA * Little interest or pleasure in doing things Answer Date of Assessment Author Several days 04/05/2025 10:42 AM EDJessi Hammer MA * Feeling down, depressed, or hopeless Answer Date of Assessment Author Not at all 04/05/2025 10:42 AM ARPANT Jessi Hamlin MA * Trouble falling or staying asleep, [...] of Assessment Author 4 04/05/2025 10:42 AM EDT Jessi Hamlin MA * How difficult have these problems made it for you to do your work, take care of things at home, or get along with other people? Answer Date of Assessment Author Not difficult at all 04/05/2025 10:42 AM EDT Jessi Rowland MA * Over the last 2 weeks, how often have you been bothered by any of the following problems? Question Answer Date of Assessment Author Feeling nervous, anxious, or on edge 1 04/05/2025 10:42 AM EDT Jessi Hamlin MA Not being able to stop or co ntrol worrying 0 04/05/2025 10:42 AM Jessi Whitley MA Worrying too much about diff erent things 1 04/05/2025 10:42 AM Jessi Whitley MA Trouble relaxing 2 04/05/2025 10:42 AM Jessi Whitley MA Being so restless that it is hard to sit still 0 04/05/2025 10:42 AM Jessi Whitley MA Becoming easily annoyed or irritable 2 04/05/2025 10:42 AM Jessi Whitley MA Feeling afraid as if somethi ng awful might happen 0 04/05/2025 10:42 AM Jessi Whitley MA WINSTON-7 Total Score 6 04/05/2025 10:42 AM Jessi Whitley MA documented as of this encounter Plan of Treatment Upcoming Encounters Date Type Department Care Team (Late st Contact Info) Description 04/29/2025 10:00 AM EDT Medication Management [facility] MEDICINE [address] [place] [address] PuiaTaqueriaStephani, PharmD [address] [place] [address] documented as of this encounter Goals Goal [...] documented as of this encounter Care Teams Digital Printer Relationship Specialty Start Date End Date Malissa Sweet DO [address] [place] [address] PCP - General Family Medicine 12/21/20 documented as of this encounter
--- OUTSIDE RECORDS SUMMARY | 2025-04-05 12:19 | XMS_ITS | Encounter Summary ---
Author Organization [employer] Address [address] [facility] 7 [place] [address] Care Team Providers Care Toll Testboard Worker Name Role Phone Malissa Sweet DO Primary Care Provider + [phone] Reason for Visit * Reason Onset Date Comments Chart Prep 04/04/2025 Encounter Details Date Type Department Care Team ([facility] st Contact Info) Description 04/04/2025 Telephone [facility] MEDICINE [address] [place], [place] [phone] Malissa Sweet DO [address] [place], [place] [phone] Chart Prep Social History Tobacco Use Types Packs/Day Years [...] encounter Miscellaneous Notes * Telephone Encounter - Naty Bentley MA - 04/04/2025 2:39 PM EDT Chart Prep Labs: done Images: done Mammogram-11/17/24([facility]) Referrals: no show US Renal and US Abodmen Vaccines due: Covid, Flu, and HPV Screenings: foot exam Overdue care gaps: PHQ-9 and WINSTON-7, A1c, Glucose documented in this encounter Plan of Treatment Upcoming Encounters Date Type Department Care Team (Late st Contact Info) Description 04/29/2025 10:00 AM EDT Medication Management [facility] MEDICINE [address] [place] [address] Stephani Sepulveda PharmD [address] [place] [address] documented as of this encounter Goals Goal Patient Goal Type Associated Problems Recent Progress Patient-Stated? Author Record your blood pressure once per day Blood Pressure No Stephani Sepulveda PharmD Blood Pressure < 140/90 Blood Pressure 128/74(2024 10:04 AM EDT) No PuiaTaqueriaStephani, PharmD Record your blood sugar as directed Result Component No Stephani Sepulveda, PharmD Note: Use CGM, ensuring sensor is scanned at least once every 8 hours to capture 24H data. Check BG manually, as directed. Hemoglobin A1c < 7 Result Component 7.1( 10:48 AM EDT) No Stephani Sepulveda, PharmD documented as of this encounter Visit Diagnoses Not on filedocumented in this encounter Additional Health Concerns Assessment Noted Time PHQ-9 Depression Total Score: 6 01/09/20 24 11:29 AM EDT documented as of this encounter Care Teams Toll Testboard Worker Relationship Specialty Start Date End Date Malissa Sweet DO [address] [place] [address] PCP - General Family Medicine 12/21/20 documented as of this encounter
== END 2025-04-05 10:56 | disposition home or self-care (01) ==
LOC: HO.HHCX 10:55
PROVIDERS: PCP Family Medicine; Visit Provider Family Medicine
DX: Z13.89 Encounter for screening for other disorder (principal)

== ENCOUNTER 2025-04-28 10:02 | Outpatient (REF) | payer MEDICAID, SELFPAY ==
--- NOTE | ~2025-04-28 | XR_ITS ---
EXAMINATION: XR HAND, LEFT CLINICAL INFORMATION: 3rd PIP joint pain, L dorsal hand pain COMPARISON: January 26, 2021. TECHNIQUE: PA, lateral, and oblique views of the left hand. FINDINGS: No acute cortical disruption or malalignment. No lytic or blastic lesions. Mild asymmetric joint space narrowing in the proximal and distal interphalangeal joints of the fifth digit. No soft tissue calcifications. No metallic or radiopaque foreign body. No subcutaneous emphysema XR/XR hand LT min 3V IMPRESSION: Mild osteoarthritis/osteoarthrosis, fifth digit . Electronically signed by: Minesh Tate MD 04/28/2025 10:20 AM EDT
--- OUTSIDE RECORDS SUMMARY | 2025-04-28 11:45 | XMS_ITS | Encounter Summary ---
Author Organization [employer] Address [address] [facility] 7 [place] [address] Care Team Providers Care Cleater Name Role Phone Malissa Sweet DO Primary Care Provider + [phone] Stephani Sepulveda PharmD Unavailable Reason for Visit * Reason Onset Date Comments OV 08/06/23 08/06/2023 Encounter Details Date Type Department Care Team (Late st Contact Info) Description 08/06/2023 Telephone [facility] MEDICINE [address] [place], [place] [phone] Malissa Sweet DO [address] [place], [place] [phone] OV 08/06/23 Social History Tobacco Use Types [...] with pcp 08/06/23. Please contact pt at [phone]. documented in this encounter Plan of Treatment Upcoming Encounters Date Type Department Care Team (Late st Contact Info) Description 04/29/2025 10:00 AM EDT Medication Management [facility] MEDICINE [address] [place] [address] PuTaqueria fisheryssa, PharmD [address] [place] [address] documented as of this encounter Goals Goal [...] documented as of this encounter Care Teams Cleater Relationship Specialty Start Date End Date Malissa Sweet DO [address] [place], [place] [phone] PCP - General Family Medicine 12/21/20 Stephani Sepulveda, PharmD [address] [place] [address] Pharmacist Internal Medicine 01/24/23 09/29/24 documented as of this encounter
--- OUTSIDE RECORDS SUMMARY | 2025-04-28 11:45 | XMS_ITS | Encounter Summary ---
Author Organization [employer] Address [address] [place] [address] 7 [place] [address] Care Team Providers Care Mirror Fabrication Supervisor Name Role Phone TannerMalissa fuller Primary Care Provider [phone] PuStephani fisher PharmD Unavailable Encounter Details Date Type Department Care Team (Late st Contact Info) Description 06/24/2022 Orders Only [facility] CL[facility]IC [address] [place] [address] Tammy Bryson LPN Social History Tobacco Use [...] Medication Management [facility] MEDICINE [address] [place] [address] Puia, Stephani, PharmD [address] [place] [address] documented as of this encounter Procedures Procedure [...] (08/18/2022 11:38 AM EST) Color Urine Yellow [facility] Appearance Urine Clear [facility] PH 5.5 5.0 - 9.0 [facility] Glucose Urine UA >=1000(A) Negative mg/dL [facility] Urine Blood Small (1+)(A) Negative [facility] Specific [place] - Urine 1.010 1.005 - 1.025 [facility] Urine Protein Negative Neg-Trace mg/dL [facility] Urine Ketones Negative Negative mg/dL [facility] Nitrite Urine Negative Negative [facility] Leukocyte Esterase Urine Negative Negative [facility] RBC Urine 0-2 0 - 2 /HPF [facility] Urine WBC 0-5 0 - 5 /HPF [facility] Urine Squamous Epithelial Cell 0-2 0 - 2 /HPF [facility] Urine Bacteria None Seen None Seen [facility] Hyaline Casts, Urine 0-2 0 - 2 /LPF [facility] 08/18/2022 11:3 8 AM EST 08/18/2022 11:41 AM EST Narrative [facility] - 08/18/2022 12:02 PM EST Urine, Clean Catch us [facility] External Provider LAB URI NE ORDERABLES Final Result [facility] [address] [place] [phone] * HIGH SENSITIVITY TROPONIN I (08/18/2022 10:05 AM EST) TROPONIN I HIGH SENSITIVITY <3.5 <3.5 - 17.0 ng/L [facility] Comment:The Porter high sens itivity Troponin-I results should beused in conjunction with other diagnostic information suchas ECG, clinical observations and information, and patientsymptoms to aid in the diagnosis of [place]. 08/18/2022 10:0 5 AM EST 08/18/2022 10:08 AM EST [facility] External Provider LAB BLO OD ORDERABLES Final Result [facility] [address] [place] [phone] * (ABNORMAL) Basic Metabolic Panel (08/18/2022 10:05 AM EST) Pathologist [facility] Sodium 135 135 - 145 mmol/L [facility] Potassium 3.9 3.3 - 5.1 mmol/L [facility] Chloride 101 96 - 108 mmol/L [facility] Carbon Dioxide 22 22 - 29 mmol/L [facility] Anion Gap 16 12 - 20 [facility] Urea Nitrogen (BUN) 7(L) 9 - 16 mg/dL [facility] Creatinine, Serum 0.75 0.5 - 1.4 mg/dL [facility] Creatinine Clr Calc Pharmacy 127.4 [facility] Comment:Provided height and weight: 162.56 cm,122.47 kg.eGFR (calculated from the MDRD study equation) and eCrCl(calculated from the Cockcroft-Gault equation) are based ondifferent parameters and may not yield comparable results.If eCrCl result is absurd, please check patient'sheight/weight. Estimated Glomerular Filt Rate >60 [facility] Comment:NOTE: For -Am erican individuals, multiply the result by 1.210.Chronic Kidney Disease: Estimated GFR < 60 mL/min/1.38k0Azlhoy Kidney Disease: Estimated GFR < 15 mL/min/1.73m2 Glucose 311(H) 60 - 115 mg/dL [facility] Calcium 8.9 8.4 - 10.2 mg/dL [facility] 08/18/2022 10:0 5 AM EST 08/18/2022 10:08 AM EST us [facility] External Provider LAB BLO OD ORDERABLES Final Result [facility] [address] [place] [address] [phone] * (ABNORMAL) CBC auto differential (08/18/2022 10:05 AM EST) White Blood Count 8.7 4.8 - 10.8 X10*3/uL [facility] Red Blood Count 4.50 4.20 - 5.50 X10*6/uL [facility] Hemoglobin 12.7 12.0 - 16.0 g/dl [facility] Hematocrit 37.0 37.0 - 47.0 % [facility] Mean Corpuscular Volume 82.2 80.0 - 98.0 fL [facility] Mean Corpuscular Hemoglobin 28.2 27.0 - 33.0 pg [facility] Mean Corpuscular HGB Conc 34.3 31.0 - 35.0 g/dl [facility] Red Cell Distribution Width 12.8 11.0 - 16.0 % [facility] Platelet Count 324 160 - 400 X10*3/uL [facility] Mean Platelet Volume 8.8(L) 9.4 - 12.3 fL [facility] Neutrophils Percent Auto 58.3 45 - 73 % [facility] Imm Gran Pct Auto 0.2 0.0 - 0.4 % [facility] Lymphocytes Percent Auto 34.8 20 - 40 % [facility] Monocytes Percent Auto 5.3 2 - 11 % [facility] Eosinophils Percent Auto 0.9 0 - 4 % [facility] Basophils Percent Auto 0.5 0 - 2 % [facility] NRBC Pct Auto 0.0 0.0 - 0.2 /100WBC [facility] Neutrophils Absolute Auto 5.1 2.0 - 8.3 x10*3/uL [facility] Imm Gran Abs Auto 0.02 0.00 - 0.03 X10*3/uL [facility] Lymphocytes Absolute Auto 3.0 1.2 - 4.9 X10*3/uL [facility] Monocytes Absolute Auto 0.5 0.1 - 1.2 X10*3/uL [facility] Eosinophils Absolute Auto 0.1 0.0 - 0.4 X10*3/uL [facility] Basophils Absolute Auto 0.0 0.0 - 0.2 X10*3/uL [facility] NRBC Abs Auto 0.000 0.0 - 0.012 X10*3/uL [facility] 08/18/2022 10:0 5 AM EST 08/18/2022 10:08 AM EST [facility] External Provider LAB BLO OD ORDERABLES Final Result Performing Organization Address City/[facility]/ZIP Co de Phone Number [facility] [address] [place] [phone] * (ABNORMAL) GLUCOSE, WHOLE BLOOD (08/18/2022 9:22 AM EST) Glucose, Whole Blood 279(H) 60 - 115 mg/dL [facility] Comment:METER #: [id number] 08/18/2022 9:22 AM EST 08/18/2022 9:25 AM EST [facility] External Provider LAB BLO OD ORDERABLES Final Result Performing Organization Address [facility]/ZIP Co de Phone Number [facility] [address] [place] [phone] documented in this encounter Visit Diagnoses Not on filedocumented in this encounter Care Teams Mirror Fabrication Supervisor Relationship Specialty Start Date End Date Malissa Sweet DO [address] [place] [address] PCP - General Family Medicine 12/21/20 Stephani Sepulveda PharmD [address] [place] [address] Pharmacist Internal Medicine 01/24/23 09/29/24 documented as of this encounter
--- OUTSIDE RECORDS SUMMARY | 2025-04-28 11:45 | XMS_ITS | Clinical Summary ---
Author Organization [facility] Address [address] [facility] [address] [place] [phone] Phone Care Team Providers Care Produce Buyer Name Role Phone [facility] Primary [facility] Provider Unavailable Allergies No known [...] (18-6 5 YEARS) 1999 PAP SMEAR 2002 MAMMOGRAM 2021 INFLUENZA VACCINE (#1) 2025 COVID-19 VACCINE (2024-2 6 season) 2025 HEPATITIS A VACCINES Aged Out [...] on file Insurance C3 ACO C3 ACO C3 ACO C3 ACO C3 ACO C3 ACO [facility] C3 ACO Care Teams Produce Buyer Relationship Specialty Start Date End Date [facility] - [facility] 04/09/22 Additional Source Comments The information contained in this document represents components of the legal health record. It is not the complete legal health record.[facility]
--- OUTSIDE RECORDS SUMMARY | 2025-04-28 11:45 | XMS_ITS | Clinical Summary ---
Author Organization [employer] Address [address] [place] [address] 7 [place] [address] Care Team Providers Care Drum Dyeing Machine Operator Name Role Phone Micki Malissa Primary Care Provider + [phone] Allergies No known active allergies Medications SUMAtriptan (Imitrex) 50 MG tablet TAKE 1 TABLET BY MOUTH AT ONSET OF MIGRAINE. MAY REPEAT ONCE AFTER 2 HOURS IF NEEDED. DO NOT EXCEED 4 TABLETS IN 24 HOURS 07/17/19 22 Active Blood Pressure Monitor [facility] [place] USE TO CHECK BLOOD PRESSURE EVERY DAY DIRECTED 01/25/20 23 Active Continuous Glucose Rotational Moulding Operator (Tabl MediaStyle Danilo 3 [place]) device 1 each 3 times daily. Use daily as directed for CGM 1 each 01/22/20 24 Active hydrOXYzine HCl (Atarax) 25 MG tabletIndication s:Anxiety disorder, unspecified TAKE 1 TABLET BY MOUTH THREE TIMES DAILY NEEDED FOR ANXIETY 60 tablet 5 07/27/19 25 Active naproxen (Naprosyn) 500 MG tablet TAKE 1 TABLET BY MOUTH TWICE DAILY IN THE MORNING AND IN THE EVENING NEEDED FOR PAIN 40 tablet 1 07/27/19 25 Active nystatin (Mycostatin) 252948 UNIT/GM powder Apply topically 2 times daily. 120 g 3 09/07/19 25 026 Active Alcohol Swabs (SM Alcohol Prep) 70 % padsIndications: Type 2 diabetes mellitus without complication, without long-term current use of insulin (HCC) Use up to three times daily, as directed 100 each 11 10/01/19 25 Active atorvastatin (Lipitor) 10 MG tabletIndication s:Type 2 diabetes mellitus without complication, without long-term current use of insulin (HCC) Take 1 tablet (10 mg) by mouth in the evening. 90 tablet 10/01/19 25 Active glucose blood (FreeStyle Precision Man Test) test stripIndications :Type 2 diabetes mellitus without complication, without long-term current use of insulin (HCC) Use to test blood sugar up to 3 times daily, as directed 100 each 10/01/19 25 Active hydroCHLOROthiaz eugene (HYDRODiuril) 25 MG tabletIndication s:Essential hypertension Take 1 tablet (25 mg) by mouth in the morning. 90 tablet 10/01/19 25 Active lisinopril 30 MG tabletIndication s:Type 2 diabetes mellitus without complication, without long-term current use of insulin ([facility]),Essential hypertension Take 1 tablet (30 mg) by mouth Once per day. 90 tablet 10/01/19 25 Active metFORMIN XR (Glucophage-XR) 500 MG 24 hr tabletIndication s:Type 2 diabetes mellitus without complication, without long-term current use of insulin ([facility]) TAKE 1 TABLET BY MOUTH TWICE DAILY IN THE MORNING AND IN THE EVENING WITH MEALS 180 tablet 10/01/19 25 Active insulin pen needle (Pentips) 32G x 4 mm miscIndications: Type 2 diabetes mellitus without complication, without long-term current use of insulin ([facility]) Use 1 daily with Lantus 100 each 10/01/19 25 Active TRUEplus Lancets 33G miscIndications: Type 2 diabetes mellitus without complication, without long-term current use of insulin ([facility]) Use to test blood sugar up to three times daily 100 each 10/01/19 25 Active Fiber-Lax 625 MG tablet TAKE 1 TABLET TWICE DAILY IN THE MORNING AND IN THE EVENING 180 tablet 10/06/19 25 Active omeprazole (PriLOSEC) [address] capsule TAKE 1 CAPSULE BY MOUTH EVERY MORNING BEFORE BREAKFAST DO NOT BREAK, CRUSH, DISSOLVE OR CHEW 90 capsule 10/06/19 25 Active Multiple Vitamins-Mineral s (Multivitamin-Mi nerals) tablet Take one tablet daily. 90 tablet 11/06/19 25 Active Continuous Glucose Sensor (FreeStyle Danilo 3 Plus Sensor) miscIndications: Type 2 diabetes mellitus without complication, without long-term current use of insulin ([facility]) 1 each Once per day. Apply 1 sensor every 15 days as directed for CGM 2 each 11 01/05/20 25 Active melatonin 5 MG tablet TAKE 1 TO 2 TABLETS BY MOUTH AT BEDTIME NEEDED FOR SLEEP 60 tablet 3 02/11/20 25 Active insulin glargine (Lantus SoloStar) 100 UNIT/ML penIndications:T ype 2 diabetes mellitus without complication, with long-term current use of insulin (HCC) Inject 14 Units under the skin at bedtime. 15 mL 1 02/16/20 25 Active Tirzepatide (Mounjaro) 12.5 MG/0.5ML solution auto-injector Inject 12.5 mg under the skin 1 (one) time per week. 2 mL 11 03/29/20 25 Active cholecalciferol (D3 Super Strength) 50 MCG (1999 UT) capsule TAKE 2 CAPSULES BY MOUTH ONCE DAILY IN THE MORNING 180 capsule 3 04/11/20 25 Active FLUoxetine (PROzac) 20 MG capsule TAKE 1 CAPSULE BY MOUTH EVERY MORNING 30 capsule 04/21/20 25 Active cholecalciferol (D3 Super Strength) 50 MCG (2000 UT) capsule TAKE 2 CAPSULES BY MOUTH ONCE DAILY IN THE MORNING 180 capsule 3 03/02/20 24 025 Discontinued FLUoxetine (PROzac) 20 MG capsule TAKE 1 CAPSULE BY MOUTH EVERY MORNING 30 capsule 03/03/20 25 025 Discontinued Active Problems Problem Noted Date Diagnosed [...] scheduled -s/p optho eval JUL 2022 at [facility], encouraged schedule f/u -foot exam next visit* Vertigo 07/02/2022 Vitamin D deficiency 07/02/2022 Encounters Date Type Department Care Team Description 04/20/2025 Telephone [facility] MEDICINE [address] [place] [address] Malissa Sweet DO Call Back Request 04/20/2025 Refill [facility] [address] [facility] [place] [address] Malissa Sweet DO 04/10/2025 Refill [facility] [place] [address] Malissa Sweet DO 04/05/2025 10:00 AM EDT Office Visit [facility] [address] [place] [phone] Malissa Sweet DO Type 2 diabetes mellitus without complication, with long-term current use of insulin ([facility]) (Primary Dx); Essential hypertension; Other hyperlipidemia; Fatty liver; Anxiety; Irritable bowel syndrome with constipation and diarrhea; Renal cyst; Heartburn; CONCEPCIÓN (obstructive sleep apnea); Skin nodule; Finger pain, left; Morbid obesity with BMI of 45.0-49.9, adult ([facility]); Healthcare maintenance; Dietary counseling; Exercise counseling 04/05/2025 Travel 04/04/[address] [address] Malissa Sweet DO Chart Prep 03/29/2025 Travel 03/28/2025 Patient Outreach [address] [address] Malissa Sweet DO Pre-visit Planning (SDOH screening completed on 08/27/2024) 03/08/[address] [address] Malissa Sweet DO Recall Letter (Recall Letter sent 03/08/25.) 03/02/2025 Refill [facility] [place] [address] Malissa Sweet DO 03/02/2025 Travel 02/24/2025 Outside Procedure [facility] OPTOMETRY [address] [place] [address] Aixa Funk, OD Presbyopia (Primary Dx) 02/23/2025 1:00 PM EDT Office Visit [facility] OPTOMETRY [address] [place] [address] Aixa Funk, OD Myopia of both eyes (Primary Dx) 02/23/2025 Travel 02/15/2025 Travel 02/10/2025 Telephone [facility] [address] [place] [address] Malissa Sweet, 2025 Refill [facility] MEDICINE [address] [place] [address] Malissa Sweet, 02/02/2025 Orders Only [facility] MEDICINE [address] [place] [address] Malissa Sweet, Obstructive sleep apnea (Primary Dx) 01/28/2025 Telephone [facility] MEDICINE [address] [place], [place] [phone] Malissa Sweet, Results from Last 3 Months Immunizations Immunization Administration [...] the past 12 months, has t he Tyres on the [place], gas, oil or water company threatened to [...] Description 04/29/2025 10:00 AM EDT Medication Management [facility] MEDICINE [address] [place], [place] [phone] Stephani Sepulveda, PharmD [address] [place], [place] [phone] Health Maintenance Due Date Last Done Comments [...] 03/21/2026 03/21/2023 Depression Screening 04/05/2026 04/05/2025, 04/05/20 Eye Exam 01/20/2027 01/20/2025, 01/04, 01/20/2025, Additional [...] 10:48 AM EDT) No Puia, Stephani, PharmD Procedures Procedure Name Priority Date/Time Associated Diagnosis Comments XR HAND 3+ VIEWS LEFT Routine 04/28/2025 10:15 AM EDT Finger pain, left POCT GLYCATED HEMOGLOBIN, TOTAL Routine 04/05/2025 10:48 AM EDT Type 2 diabetes mellitus without complication, with long-term current use of insulin ([facility]) POCT GLUCOSE Routine 04/05/2025 10:05 AM EDT Type 2 diabetes mellitus without complication, with long-term current use of insulin (CMS/HCC) BI [...] Recently Relevant to Health Maintenance Results * XR Hand 3+ Views Left (04/28/2025 10:15 AM EDT) Anatomical Region Laterality Modality Upper Extremities, Hand Left Radiogra phic Imaging 04/28/2025 10:1 5 AM EDT Narrative 04/28/2025 10:22 AM EDT [address] [address] XRay Report Signed Patient: Antonietta Pak MR#: [id number] 843 : 1980 Acct:[id number] Age/Sex: 45 / F ADM Date: 04/28/25 Loc: HO.HHCX Attending Dr: Malissa Sweet DO Ordering Physician: Malissa Sweet DO Date of Service: 04/28/25 Procedure(s): XR hand LT min 3V Accession Number(s): [id number] cc: Malissa Sweet DO Reason for Exam: 3rd PIP joint pain, L dorsal hand pain EXAMINATION: XR HAND, LEFT CLINICAL INFORMATION: 3rd PIP joint pain, L dorsal hand pain COMPARISON: January 26, 2021. TECHNIQUE: PA, lateral, and oblique views of the left hand. FINDINGS: No acute cortical disruption or malalignment. No lytic or blastic lesions. Mild asymmetric joint space narrowing in the proximal and distal interphalangeal joints of the fifth digit. No soft tissue calcifications. No metallic or radiopaque foreign body. No subcutaneous emphysema XR/XR hand LT min 3V IMPRESSION: Mild osteoarthritis/osteoarthrosis, fifth digit . Electronically signed by: Minesh Tate MD 04/28/2025 10:20 AM EDT Dictated By: Minesh Jc MD Signed By: <Electronically signed by Minesh Carlton MD in OV> 04/28/25 1020 DD/ 1015 TD/TT: 04/28/25 1016 Refund Specialist: Procedure Note Donotuseinterpreter, Image - 04/28/[address] [address] XRay Report Signed Patient: Mary Pak#: [id number] 843 : 1980Acct:[id number] Age/Sex: 45 / FADM Date: 04/28/25 Loc: HO.HHCX Attending Dr: Malissa Sweet DO Ordering Physician: Malissa Sweet DO Date of Service: 04/28/25 Procedure(s): XR hand LT min 3V Accession Number(s): [id number] cc: Malissa Sweet DO Reason for Exam: 3rd PIP joint pain, L dorsal hand pain EXAMINATION: XR HAND, LEFT CLINICAL INFORMATION: 3rd PIP joint pain, L dorsal hand pain COMPARISON: January 26, 2021. TECHNIQUE: PA, lateral, and oblique views of the left hand. FINDINGS: No acute cortical disruption or malalignment. No lytic or blastic lesions. Mild asymmetric joint space narrowing in the proximal and distal interphalangeal joints of the fifth digit. No soft tissue calcifications. No metallic or radiopaque foreign body. No subcutaneous emphysema XR/XR hand LT min 3V IMPRESSION: Mild osteoarthritis/osteoarthrosis, fifth digit . Electronically signed by: Minesh Tate MD 04/28/2025 10:20 AM EDT Dictated By: Minesh Jc MD Signed By: <Electronically signed by Minesh aCrlton MDin OV> 04/28/25 1020 DD/ 1015 TD/TT: 04/28/25 1016 Refund Specialist: Malissa Sweet DO IMG XR PROCEDURES Edited Res ult - Final * (ABNORMAL) POCT Hgb A1c (04/05/2025 10:48 AM EDT) Hemoglobin A1C 7.1(A) 4.0 - 5.7 % QC Media Lot # [id number] Lot# Expiration Date [id number] Blood 04/05/2025 10:4 8 AM EDT Malissa Sweet DO POINT OF CARE TEST ENTER/TEOFILO T ORDERABLES Final Result * POCT Glucose (04/05/2025 10:05 AM EDT) Glucose Blood, POC 146 60 - 200 mg/dL QC Media Lot # [id number] Lot# Expiration Date 726 Blood Capillary blood specimen / Unknown 04/05/2025 10:05 AM EDT Malissa Sweet DO POINT OF CARE TEST ENTER/TEOFILO T ORDERABLES Final Result * BI Mammogram Screening Tomosynthesis Bilateral (11/11/2024 10:00 AM EDT) Anatomical Region Laterality Modality Breast Bilateral Mammography 11/11/2024 10:0 0 AM EDT Narrative 11/17/2024 8:04 AM EDT [facility] [address] [place] [address] Mammography Report Signed Patient: Antonietta Pak MR#: [id number] 843 : 1980 Acct:[id number] Age/Sex: 44 / F ADM Date: 11/11/24 Loc: HO.MAMMO Attending Dr: Malissa Sweet DO Ordering Physician: Malissa Sweet DO Results: 1N egative Date of Service: 11/11/24 Follow Up: 1 Year From [facility] ina Mammogram Procedure(s): MM tomosynthesis screening BI Accession Number(s): [id number] cc: Malissa Sweet DO EXAMINATION: MM SCREENING [...] 11/17/24 0802 DD/ 1000 TD/TT: 11/11/24 1017 Refund Specialist: Procedure Note Donotuseinterpreter, Image - 11/22/2024 [facility] [address] [place], [place] [address] Mammography Report Signed Patient: Mary Pak#: [id number] 843 : 1980Acct:[id number] Age/Sex: 44 / FADM Date: 11/11/24 Loc: .MAMMO Attending Dr: Malissa Sweet DO Ordering Physician: Malissa Sweet DOResults: 1N egative Date of Service: 11/11/24Follow Up: 1 Year From [facility] Mammogram Procedure(s): MM tomosynthesis screening BI Accession Number(s): [id number] cc: Malissa Sweet DO EXAMINATION: MM SCREENING [...] 11/17/24 0802 DD/ 1000 TD/TT: 11/11/24 1017 Refund Specialist: Malissa Sweet DO IMG BI PROCEDURES Edited Res ult - Final * Albumin, Random Urine W/Creatinine (10/29/2024 11:52 AM EDT) Creatinine, Urine 244.76 mg/dL [facility] Microalbumin Urine 16.0 mg/L [facility] Microalbum Creatinine Ratio Ur 6.5 <30 ug/mg cr [facility] Comment:Albumin/Creatinine R atio Reference Ranges: Normal: < 30 ug/mg creatinine Microalbuminuria: 30 - 300 ug/mg creatinineClinical Albuminuria: > 300 ug/mg creatinine Urine (Urine, Random) 10/29/2024 11:52 AM EDT 10/29/2024 1:01 PM EDT us Malissa Sweet DO LAB URINE ORDERABLES Final R esult [facility] [address] [place] [address] [phone] * Hepatitis C Antibody with Reflex to HCV, RNA, Quantitative, Real-Time PCR (10/29/2024 11:52 AM EDT) Hepatitis C Antibody Nonreactive Nonreactive [facility] Comment:Antibodies to HCV no t detected; does not exclude early acuteHCV infection. Blood Venous blood specimen / Unknown 10/29/2024 11:52 AM EDT 10/29/2024 12:57 PM EDT Malissa Sweet DO LAB BLOOD ORDERABLES Final R esult Performing Organization Address City/[facility]/ZIP Co de Phone Number [facility] [address] [place] [address] [phone] * HIV-1/2 Antigen and Antibodies, Fourth Generation, with Reflexes (10/29/2024 11:52 AM EDT) Pathologist [facility] HIV AB/AG Nonreactive Nonreactive [facility] Comment:HIV-1 p24 Ag and/or HIV-1/HIV-2 Ab not detected.A test result that is nonreactive does not exclude thepossibility of exposure to or infection with HIV-1 and/orHIV-2. Nonreactive results in this assay for individualswith prior exposure to HIV-1 and/or HIV-2 may be due toantigen and antibody levels that are below the limit ofdetection of this assay.The [employer]oInSight HIV Ag/Ab Combo assay result andsupplemental assay results should be interpreted inconjunction with the patient's clinical presentation,history and other laboratory results. If the results areinconsistent with clinical evidence, additional testing issuggested to confirm the result. Blood Venous blood specimen / Unknown 10/29/2024 11:52 AM EDT 10/29/2024 12:57 PM EDT Malissa Ayoubdigna DO LAB BLOOD ORDERABLES Final R esult Performing Organization Address City/[facility]/ZIP Co de Phone Number [facility] [address] [place] [address] [phone] * Lipid Panel, Standard (10/29/2024 11:52 AM EDT) Triglycerides 94 <150 mg/dL [facility] Comment:Desirable Triglyceri de: less than 150 mg/dLBorderline High Triglyceride 150-199 mg/dLHigh Triglyceride: 200-499 mg/dLVery High Triglyceride: greater than or equal to 5OO mg/dL Cholesterol 163 <200 mg/dL [facility] Comment:Desirable Cholestero l: less than 200 mg/dLBorderline High Cholesterol: 200-239 mg/dLHigh Cholesterol: greater than 239 mg/dL LDL Cholesterol Calculated 89 <100 mg/dL [facility] Comment:Desirable LDL: less than 100 mg/dLNear Optimal/Above Optimal LDL: 110- 129 mg/dLBorderline High LDL: 130-159 mg/dLHigh LDL: 160-189 mg/dLVery High LDL: greater than or equal to 190 mg/dL HDL Cholesterol 56 >40 mg/dL [facility] Comment:Desirable HDL: great er than 40 mg/dL Note: This HDL assay may give artificially low results in patients with liver disease. Blood Venous blood specimen / Unknown 10/29/2024 11:52 AM EDT 10/29/2024 1:06 PM EDT us Malissa Sweet DO LAB BLOOD ORDERABLES Final R esult [facility] [address] [place] [address] [phone] * HPV mRNA E6/E7 w/Reflex to HPV Genotypes 16, 18/45 (03/21/2023 12:49 PM EDT) HPV nRNA E6/E7 Not Detected Not Detected [facility] Comment:Methodology: Transcr iption-Mediated AmplificationThis assay detects E6/E7 viral messenger RNA (mRNA) from 14high-risk HPV types (16,18,31,33,35,39,45,51,52,56,58,59,66,68).Cervical sources are required for HPV testing.If a vaginal source from a patient who has had atotal hysterectomy with removal of cervix wassubmitted, please contact the testing laboratoryfor alternative testing options.For additional information, please refer [email or web address]/faq/[email or web address](This link if provided for information/educational purposes only.)THIS TEST WAS PERFORMED AT:[facility] [place] [id number] PORTILLO MD HPV mRNA E6/E7 TNP [facility] HPV 16 RNA TNP [facility] HPV 18/45 RNA TNP [facility] 03/21/2023 12:4 9 PM EDT 03/24/2023 9:30 AM EDT us Malissa Sweet DO LAB CYTOLOGY ORDERABLES Renetta l Result [facility] [address] [place] [address] [phone] * Pap Smear (03/21/2023 12:49 PM EDT) 03/21/2023 12:4 9 PM EDT 03/24/2023 9:30 AM EDT Narrative [facility] - 04/01/2023 1:59 PM EDT ----- ------- Name: Antonietta Pak Age/Sex: 43/F : 1980 Unit#: [id number] Attend Dr: Malissa Sweet DO Re03/21/23 Status: DEP REF Location: HO.HHCLNP Disch: ----- ------- SPEC : [id number] RECD: 03/24/23 STATUS: ASHLEY HOLLY NUM: [id number] LO: 03/21/23-12[address] [facility] [address]: Malissa Sweet DO ENTERED: 03/24/23-1152 SP TYPE: Pap Smr OTHR DR: ORDERED: Pap Smear Interpretation Satisfactory for evaluation. Negative for intraepithelial lesion or malignancy. HPV mRNA E6/E7: NOT DETECTED This assay detects E6/E7 viral messenger RNA (mRNA) from 14 high-risk HPV types (16, 18, 31, 33, 35, 39, 45, 51, 52, 56, 58, 59, 66, 68) HPV testing performed by [employer], [place], [place]. See reference laboratory portion of the EMR for entire report. Clinical Information LMP: 03/14/23 Previous PAP test: Unknown date/findings Material Received ThinPrep-Vaginal/Cervical ----- ------- Signed (signature on file) Emili Tineo Julieta 04/01/23 1359 ----- ------- END OF REPORT Malissa Sweet DO LAB CYTOLOGY ORDERABLES Renetta encarnacion Result [facility] [address] [place] [phone] from Last 3 Months or Most Recently Relevant to Health Maintenance [place] [address] [place] [address] C3 Care Teams Drum Dyeing Machine Operator Relationship Specialty Start Date End Date Malissa Sweet DO [address] [place] [phone] PCP - General Family Medicine 12/21/20
== END 2025-04-28 10:03 | disposition home or self-care (01) ==
LOC: HO.HHCX 10:02
PROVIDERS: PCP Family Medicine; Visit Provider Family Medicine
DX: M79.645 Pain in left finger(s) (principal)
CPT/HCPCS: 73130

== ENCOUNTER → 2025-04-28 10:06 | Outpatient (BNV) | payer MEDICAID, SELFPAY | PROVIDERS: PCP Family Medicine; Visit Provider Radiology Diagnostic Radiology | DX: M19.042 Primary osteoarthritis, left hand (principal) | CPT/HCPCS: 73130 ==